=== PATIENT | female | born 1995 | race Caucasian/White ===

== ENCOUNTER 2022-09-20 09:55 | Outpatient (OUT) | payer OTHER, SELFPAY ==
--- NOTE | 2022-09-20 | US_ITS ---
The [address] [address] Patient Name: LINNEA CAPELLAN MRN: [id number] date: 1995 Sex: F Assigned Patient Location: Current Patient Location: US Accession/Order Number: [id number] Exam Date: 09/20/2022 09:57 Report Date: 09/20/2022 15:58 At the request of: SONAM SOTELO Procedure: US OB >= 14 weeks Fetus EXAMINATION: US OB >= 14 weeks Fetus HISTORY: MISSED MENSES COMPARISON: No relevant comparison available. FINDINGS: GESTATIONAL SAC: Present and normal appearing. YOLK SAC: Absent POLE: Present and normal appearing. CARDIAC: Present. UTERUS: Normal size and appearance. OVARIES: Right: Not seen. Left: Normal. CUL-DE-SAC: Normal. OTHER: None. AGE BY LMP: 13 weeks 1 day KIP BY LMP: 03/27/2023 AGE BY US CRL: 15 weeks 1 day KIP BY US CRL: 03/13/2023 US/US OB >= 14 weeks Fetus IMPRESSION: 1. Single live intrauterine 15 weeks 1 day by today's ultrasound (13 weeks 1 day by LMP). 2. Estimated weight is 113 g; greater than 97th percentile. Electronically authenticated by: MONTSE BOWMAN Date: 09/20/2022 15:58
== END 2022-09-20 09:56 | disposition home or self-care (01) ==
LOC: US 09:55
PROVIDERS: Visit Provider Obstetrics & Gynecology
DX: Z34.92 Encounter for supervision of normal pregnancy, unspecified, second trimester (principal)
CPT/HCPCS: 76815; 76817

== ENCOUNTER 2022-10-08 07:41 | Outpatient (OUT) | payer OTHER, SELFPAY ==
[2022-10-08 08:11] LABS: Basophils Percent Auto 0.2 % (0.2-2.0); Eosinophils Absolute Auto 0.1 10^3/uL (0.0-0.7); Eosinophils Percent Auto 1.1 % (0.9-7.0); Hematocrit 35.7 % (36.0-48.0); Hemoglobin 11.9 g/dL (12.0-16.0); Immature Granulocytes Abs Auto 0.03 10^3/uL (0.00-0.03); Immature Granulocytes Pct Auto 0.4 % (0.0-0.5); Lymphocytes Absolute Auto 1.4 10^3/uL (1.2-3.8); Lymphocytes Percent Auto 16.5 % (20.5-60.0); Mean Corpuscular HGB Conc 33.3 g/dL (29.9-35.2); Mean Corpuscular Hemoglobin 30.1 pg (26.7-34.0); Mean Corpuscular Volume 90.2 fL (81.0-99.0); Mean Platelet Volume 9.8 fL (9.5-13.5); Monocytes Absolute Auto 0.5 10^3/uL (0.3-0.8); Monocytes Percent Auto 5.5 % (1.7-12.0); Neutrophils Absolute Auto 6.5 10^3/uL (1.4-6.5); Neutrophils Percent Auto 76.3 % (43.0-75.0); Platelet Count 223 10^3/uL (150-450); Red Blood Count 3.96 10^6/uL (4.20-5.40); Red Cell Distribution Width 13.8 % (11.0-15.0); White Blood Count 8.5 10^3/uL (4.0-11.0)
[2022-10-08 08:30] LABS: Estimated Average Glucose 117 mg/dL; Glycohemoglobin A1C 5.7 % (4.5-6.2)
[2022-10-08 08:44] LABS: Thyroid Stimulating Hormone 0.652 uIU/mL (0.358-3.740)
[2022-10-09 05:07] LABS: HCV Ab Non Reactive (Non Reactive); HIV Ab/p24 Ag Screen Non Reactive (Non Reactive); Rubella Antibodies, IgG 1.68 index (Immune >0.99)
[2022-10-09 06:08] LABS: HBsAg Screen Negative (Negative)
[2022-10-09 11:12] LABS: Rapid Plasma Reagin, Quant Non Reactive (NonRea<1:1)
== END 2022-10-08 07:42 | disposition home or self-care (01) ==
LOC: LAB 07:46
PROVIDERS: Visit Provider Obstetrics & Gynecology
DX: N92.6 Irregular menstruation, unspecified (principal)
CPT/HCPCS: 36415; 83036; 84443; 85025; 86592; 86706; 86762; 86803; 86850; 86900; 86901; 87086; 87389

== ENCOUNTER 2022-10-17 21:12 | Outpatient (REF) | payer OTHER, SELFPAY ==
[2022-10-22 14:09] LABS: Age Gdln ACOG Testing Note (.); IGP, rfx Aptima HPV ASCU Note (.)
== END 2022-10-17 21:13 | disposition home or self-care (01) ==
LOC: LAB 21:12
PROVIDERS: Visit Provider Obstetrics & Gynecology
DX: Z12.4 Encounter for screening for malignant neoplasm of cervix (principal)
CPT/HCPCS: G0145

== ENCOUNTER 2022-10-22 08:37 | Outpatient (OUT) | payer OTHER, SELFPAY ==
[2022-10-22 10:41] LABS: Glucose 1 Hour 112 mg/dL
[2022-10-25 14:09] LABS: AFP Value 66.6 ng/mL (.); Gest. Age on Collection Date 19.7 weeks (.); Gestat. Age Based On Ultrasound (.); Insulin Dep Diabetes No (.); Maternal Age At EDD 29.2 yr (.); OSBR Risk 1 IN 10000 (.); Results Report (.)
== END 2022-10-22 08:38 | disposition home or self-care (01) ==
LOC: LAB 08:39
PROVIDERS: Visit Provider Obstetrics & Gynecology
DX: Z34.92 Encounter for supervision of normal pregnancy, unspecified, second trimester (principal)
CPT/HCPCS: 36415; 82105; 82950

== ENCOUNTER 2022-11-21 08:48 | Outpatient (OUT) | payer OTHER, SELFPAY ==
--- NOTE | 2022-11-21 08:49 | US_ITS ---
[address] [address] Patient Name: LINNEA CAPELLAN MRN: [id number] date: 1995 Sex: F Assigned Patient Location: US Current Patient Location: US Accession/Order Number: [id number] Exam Date: 11/21/2022 08:50 Report Date: 11/21/2022 16:16 At the request of: SONAM SOTELO Procedure: US OB anatomy EXAMINATION: US OB anatomy, US OB cervical length HISTORY: ANATOMY COMPARISON: No relevant comparison available. TECHNIQUE: Transabdominal sonographic examination was performed for obstetrical and evaluation. FINDINGS: Number: 1 Heart Rate: 160.0 bpm H.B. /min Amniotic Fluid Volume: Subjectively normal Placental Location: Posterior with lower margin 6.8 cm from os. Cervix Length: 3.1 cm, closed. ANATOMY: Normal Structures -cerebellum, choroid plexus, cisterna magna, lateral cerebral ventricles, orbits, midline falx, hard palate, four-chamber heart, RVOT, LVOT, stomach, bladder, umbilical cord insertion into abdomen, three-vessel cord, cervical spine, thoracic spine, sacral spine, right upper extremity, left upper extremity, right lower extremity, left lower extremity. SUBOPTIMALLY SEEN: Right kidney and lumbar spine ABNORMALITIES: None BIOMETRY: BPD: 5.4 cm 22 weeks 3 days HC: 21.0 cm 23 weeks 0 days AC: 19.8 cm 24 weeks 3 days FL: 4.3 cm 23 weeks 6 days EFW:652.1 grams; 42% FL/AC: 21.4 FL/BPD: 78.6 HC/AC: 1.1 GESTATIONAL AGE: Age by EDC: 24 weeks 0 days KIP by EDC: 03/13/2023 Age by current US: 23 weeks 3 days KIP by current US: 03/17/2023 US/US OB anatomy IMPRESSION: 1. Single live intrauterine with growth detailed above. 2. Suboptimal visualization of the right kidney and lumbar spine due to position. Follow-up is recommended. Electronically authenticated by: MONTSE BOWMAN Date: 11/21/2022 16:16
--- NOTE | 2022-11-21 08:49 | US_ITS ---
[address] [address] Patient Name: LINNEA CAPELLAN MRN: [id number] date: 1995 Sex: F Assigned Patient Location: US Current Patient Location: Accession/Order Number: [id number] Exam Date: 11/21/2022 08:50 Report Date: 11/21/2022 16:16 At the request of: SONAM SOTELO Procedure: US OB cervical length EXAMINATION: US OB anatomy, US OB cervical length HISTORY: ANATOMY COMPARISON: No relevant comparison available. TECHNIQUE: Transabdominal sonographic examination was performed for obstetrical and evaluation. FINDINGS: Number: 1 Heart Rate: 160.0 bpm H.B. /min Amniotic Fluid Volume: Subjectively normal Placental Location: Posterior with lower margin 6.8 cm from os. Cervix Length: 3.1 cm, closed. ANATOMY: Normal Structures -cerebellum, choroid plexus, cisterna magna, lateral cerebral ventricles, orbits, midline falx, hard palate, four-chamber heart, RVOT, LVOT, stomach, bladder, umbilical cord insertion into abdomen, three-vessel cord, cervical spine, thoracic spine, sacral spine, right upper extremity, left upper extremity, right lower extremity, left lower extremity. SUBOPTIMALLY SEEN: Right kidney and lumbar spine ABNORMALITIES: None BIOMETRY: BPD: 5.4 cm 22 weeks 3 days HC: 21.0 cm 23 weeks 0 days AC: 19.8 cm 24 weeks 3 days FL: 4.3 cm 23 weeks 6 days EFW:652.1 grams; 42% FL/AC: 21.4 FL/BPD: 78.6 HC/AC: 1.1 GESTATIONAL AGE: Age by EDC: 24 weeks 0 days KIP by EDC: 03/13/2023 Age by current US: 23 weeks 3 days KIP by current US: 03/17/2023 US/US OB cervical length IMPRESSION: 1. Single live intrauterine with growth detailed above. 2. Suboptimal visualization of the right kidney and lumbar spine due to position. Follow-up is recommended. Electronically authenticated by: MONTSE BOWMAN Date: 11/21/2022 16:16
== END 2022-11-21 08:49 | disposition home or self-care (01) ==
LOC: US 08:48
PROVIDERS: Visit Provider Obstetrics & Gynecology
DX: Z34.92 Encounter for supervision of normal pregnancy, unspecified, second trimester (principal); Z3A.24 24 weeks gestation of pregnancy
CPT/HCPCS: 76805; 76817

== ENCOUNTER 2022-12-09 08:19 | Outpatient (OUT) | payer OTHER, SELFPAY ==
[2022-12-09 08:40] LABS: Basophils Percent Auto 0.2 % (0.2-2.0); Eosinophils Absolute Auto 0.1 10^3/uL (0.0-0.7); Eosinophils Percent Auto 1.2 % (0.9-7.0); Hematocrit 32.1 % (36.0-48.0); Hemoglobin 10.7 g/dL (12.0-16.0); Immature Granulocytes Abs Auto 0.08 10^3/uL (0.00-0.03); Immature Granulocytes Pct Auto 0.7 % (0.0-0.5); Lymphocytes Absolute Auto 1.3 10^3/uL (1.2-3.8); Lymphocytes Percent Auto 11.1 % (20.5-60.0); Mean Corpuscular HGB Conc 33.3 g/dL (29.9-35.2); Mean Corpuscular Hemoglobin 30.7 pg (26.7-34.0); Mean Corpuscular Volume 92.2 fL (81.0-99.0); Monocytes Absolute Auto 0.6 10^3/uL (0.3-0.8); Monocytes Percent Auto 5.3 % (1.7-12.0); Neutrophils Absolute Auto 9.9 10^3/uL (1.4-6.5); Neutrophils Percent Auto 81.5 % (43.0-75.0); Platelet Count 264 10^3/uL (150-450); Red Blood Count 3.48 10^6/uL (4.20-5.40); Red Cell Distribution Width 13.1 % (11.0-15.0); White Blood Count 12.1 10^3/uL (4.0-11.0)
== END 2022-12-09 08:20 | disposition home or self-care (01) ==
LOC: LAB 08:20
PROVIDERS: Visit Provider Physician Assistant
DX: Z34.92 Encounter for supervision of normal pregnancy, unspecified, second trimester (principal)
CPT/HCPCS: 36415; 85025

== ENCOUNTER 2022-12-24 10:26 | Outpatient (OUT) | payer OTHER, SELFPAY ==
--- NOTE | 2022-12-24 10:29 | US_ITS ---
The [address] [address] Patient Name: LINNEA CAPELLAN MRN: [id number] date: 1995 Sex: F Assigned Patient Location: US Current Patient Location: US Accession/Order Number: [id number] Exam Date: 12/24/2022 10:29 Report Date: 12/24/2022 15:48 At the request of: SONAM SOTELO Procedure: US OB incomplete anatomy EXAM: US OB incomplete anatomy HISTORY: INCOMPLETE ANATOMY COMPARISON: Ultrasound OB anatomy 8 11/21/2022 TECHNIQUE: Transabdominal ultrasound FINDINGS: Presentation: Cephalic Heart rate: 153 bpm Anatomy: Bilateral kidneys and lumbar spine without appreciable abnormality. GA: 28 weeks 5 days KIP: 03/13/2023 US/US OB incomplete anatomy IMPRESSION: 1. Single live intrauterine . 2. Adequate visualization of the kidneys and lumbar spine; no appreciable abnormality. Electronically authenticated by: MONTSE BOWMAN Date: 12/24/2022 15:48
== END 2022-12-24 10:27 | disposition home or self-care (01) ==
LOC: US 10:26
PROVIDERS: Visit Provider Obstetrics & Gynecology
DX: Z36.2 Encounter for other antenatal screening follow-up (principal)
CPT/HCPCS: 76815

== ENCOUNTER 2023-01-14 08:03 | Outpatient (OUT) | payer OTHER, SELFPAY ==
--- NOTE | 2023-01-14 08:04 | US_ITS ---
[address] [address] Patient Name: LINNEA CAPELLAN MRN: [id number] date: 1995 Sex: F Assigned Patient Location: US Current Patient Location: US Accession/Order Number: [id number] Exam Date: 01/14/2023 08:05 Report Date: 01/14/2023 23:50 At the request of: SONAM SOTELO Procedure: US OB growth EXAMINATION: US OB growth HISTORY: SGA COMPARISON: Ultrasound OB anatomy 11/21/2022 FINDINGS: Heart Rate: 166.0 bpm Number: 1.0 Position: CEPHALIC Amniotic Fluid Volume: 11.7 cm Maximum Vertical Pocket: 3.5 cm BIOMETRY: BPD: 7.5 cm cm; 29 weeks 6 days; 4% HC: 28.9 cmcm; 31 weeks 6 days ; 17% AC: 26.9 cm cm; 31 weeks 0 days; 28% FL: 6.1 cm cm; 31 weeks 4 days; 33% EFW: 1716.9 grams; 23% FL/AC: 22.6 FL/BPD: 81.6 HC/AC: 1.1 GESTATIONAL AGE: Age by EDC: 31 weeks 5 days KIP by EDC: 03/13/2023 Age by US: 31 weeks 1 day KIP by US: 03/17/2023 US/US OB growth IMPRESSION: 1. Single live intrauterine with growth detailed above. Electronically authenticated by: MONTSE BOWMAN Date: 01/14/2023 23:50
== END 2023-01-14 08:04 | disposition home or self-care (01) ==
LOC: US 08:03
PROVIDERS: Visit Provider Obstetrics & Gynecology
DX: O26.843 Uterine size-date discrepancy, third trimester (principal); Z3A.31 31 weeks gestation of pregnancy
CPT/HCPCS: 76816

== ENCOUNTER 2023-02-11 09:39 | Outpatient (OUT) | payer OTHER, SELFPAY ==
--- NOTE | 2023-02-11 09:41 | US_ITS ---
[address] [address] Patient Name: LINNEA CAPELALN MRN: [id number] date: 1995 Sex: F Assigned Patient Location: US Current Patient Location: US Accession/Order Number: [id number] Exam Date: 02/11/2023 09:42 Report Date: 02/11/2023 10:25 At the request of: SONAM SOTELO Procedure: US OB growth EXAMINATION: US OB growth HISTORY: SIZE INCONSISTENT WITH DATE COMPARISON: No relevant comparison available. FINDINGS: Heart Rate: 164.0 bpm Amniotic Fluid Volume: 11.1 cm Number: 1.0 Position: Cephalic presentation, longitudinal lie Maximum Vertical Pocket: 5.3 cm cm 2.1 cm cm 2.6 cm cm 1.1 cm cm BIOMETRY: BPD: 8.5 cm cm; 34 weeks 1 days; 16% HC: 30.9 cmcm; 34 weeks 3 days , 4% AC: 30.2 cm cm; 34 weeks 1 days, 18% FL: 6.8 cm cm; 34 weeks 5 days; 20.9 % % EFW: 2415.7 grams FL/AC: 22.4 FL/BPD: 79.6 HC/AC: 1.0 GESTATIONAL AGE: Age by EDC: 35 weeks 5 days KIP by EDC: 03/13/2023 Age by US: 34 weeks 3 days KIP by US: 03/22/2023 Suboptimal visualization of the head due to the low position US/US OB growth IMPRESSION: Normal interval growth Electronically authenticated by: TRESSA HERZOG Date: 02/11/2023 10:25
--- OUTSIDE RECORDS SUMMARY | 2023-02-11 09:46 | XMS_ITS | CCD ---
Author Name Unknown Address [id number] [place] [address] Organization [facility] Care Team Providers Care Machine Shop Supervisor Name Role Phone CHAVEZ BACA Unavailable Unavailable CHAVEZ BACA Unavailable Unavailable CHAVEZ BACA Unavailable Unavailable CHAVEZ BACA Unavailable Unavailable CHAVEZ BACA Unavailable Unavailable TRESSA HERZOG V Unavailable Unavailable CHAVEZ BACA Unavailable Unavailable CHAVEZ BACA Unavailable Unavailable CHAVEZ BACA Unavailable Unavailable CHAVEZ BACA Unavailable Unavailable CHAVEZ BACA Unavailable Unavailable CHAVEZ BACA Unavailable Unavailable CHAVEZ BACA Unavailable Unavailable CHAVEZ BACA Unavailable Unavailable CHAVEZ BACA Unavailable Unavailable MAXWELL BARBOSA Unavailable Unavailable CHAVEZ BACA Unavailable Unavailable CHAVEZ BACA Unavailable Unavailable CHAVEZ BACA Unavailable Unavailable CHAVEZ BACA Unavailable Unavailable CHAVEZ BACA Unavailable Unavailable CHAVEZ BACA Unavailable Unavailable TRESSA HERZOG V Unavailable Unavailable CANDY BACAA Unavailable Unavailable CHAVEZ BACA Unavailable Unavailable CHAVEZ BAAC Unavailable Unavailable MISC, DOCTOR Unavailable Unavailable CHAVEZ BACA Unavailable Unavailable CANDY BACAA Unavailable Unavailable CANDY BACAA Unavailable Unavailable CANDY BACAA Unavailable Unavailable CANDY BACAA Unavailable Unavailable CANDY BACAA Unavailable Unavailable CANDY BACAA Unavailable Unavailable CHAVEZ BACA Unavailable Unavailable CHAVEZ BACA Unavailable Unavailable DEEPAK, SONAM Unavailable Unavailable DEEPAK, SONAM Unavailable Unavailable CARRIE HAWKINS Unavailable Unavailable MISC, DOCTOR Unavailable Unavailable DEEPAK, SONAM Unavailable Unavailable CHAVEZ BACA Unavailable Unavailable DEEPAK, SONAM Unavailable Unavailable Oly Marie Unavailable ISAIAS LUX Attending Unavailable DEEPAK, SONAM Attending Unavailable Problems Active Problems Problem Classification Problem Date Documented Da te Episodic/Chronic Normal and/or delivery (14 sources) Encounter for supervision of normal , unspecified, third trimester; Translations: [Encounter for routine follow-up] Onset: 03-14-2017 Episodic OB-related trauma to perineum and vulva (1 source) Second degree perineal laceration during delivery; Translations: [SECOND DEG PERINEAL LAC DUR DELIV] Onset: 08-05-2017 Episodic Other complications of ; puerperium affecting management of mother (1 source) Smoking (tobacco) complicating childbirth; Translations: [SMOKING TOBACCO COMP CHILDBIRTH] Onset: 08-05-2017 Episodic Other complications of (4 sources) Anemia complicating , third trimester; Translations: [ANEMIA COMP THIRD TRI] Onset: 06-27-2017 Chronic Other complications of (2 sources) Smoking (tobacco) complicating , third trimester; Translations: [SMOKING TOBACCO COMP PREG 3RD TRI] Onset: 07-22-2017 Episodic Other lower respiratory disease (1 source) Cough; Translations: [Cough, unspecified type] Episodic Substance-related disorders (1 source) Nicotine dependence, cigarettes, uncomplicated; Translations: [NICOTINE DEPEND CIGARETTES UNCOMP] Onset: 08-05-2017 Chronic Unclassified (2 sources) 35 weeks gestation of ; Translations: [39 weeks gestation of ] Onset: 06-26-2017 Past or Other Problems Problem Classification Problem Date Documented Da te Episodic/Chronic Unclassified (4 sources) Encounter for screening for malignant neoplasm of cervix; Translations: [ENC SCREENING MALIG NEOPLASM CERV] Onset: 03-10-2017 Episodic Unclassified (1 source) Cough, unspecified type R05.9 Onset: 09-15-2021 Resolved: 09-15-2021 Results Test Name Value Interpretation Reference Range Facility COVID Quick Testingon 2021 Result Positive invino Other CBC AUTO DIFFon 07-23-2017 Basophils Auto #/vol (Bld) 0.0 103/ul Normal 0.0-0.1 [facility] Comment on above: Performed By: #### U AMIC ####[facility] [address] [place], [place] [address]Zgowth Jovanna Basophils/100 WBC Auto (Bld) 0.2 % Normal 0.2-2.0 [facility] Comment on above: Performed By: #### U AMIC ####[facility] [address] [place], [place] [address]Ntwrlq Jovanna Eosinophils 0.0 103/ul Normal 0.0-0.7 [facility] Comment on above: Performed By: #### U AMIC ####[facility] [address] [place], [place] [address]Gerdeangelo Nugent Eosinophils/100 leukocytes 0.2 % Critically low 0.9-7.0 [facility] Comment on above: Performed By: #### U AMIC ####[facility] Bsqz[address] [place], [place] [address]Gerken Jovanna Erythrocyte distribution width Auto Ratio (RBC) 14.3 % Normal 11.0-15.0 [facility] Comment on above: Performed By: #### U AMIC ####[facility] [address] [place] [address] Jovanna Erythrocytes (RBC) 3.30 106/ul Critically low 4.20-5.40 [facility] Comment on above: Performed By: #### U AMIC ####[facility] Lkmmtaqcxb[address] [place], [place] [address]Gerken Jovanna Hematocrit (HCT) 28.5 % Critically low 36.0-48.0 [facility] Comment on above: Performed By: #### U AMIC ####[facility] Zdvgahmz[address] [place], [place] [address]Gerken Jovanna Hemoglobin mass conc (Bld) 9.5 g/dL Critically low 12.0-16.0 [facility] Comment on above: Performed By: #### U AMIC ####[facility] [address] [place], [place] [address]Gerken Jovanna IG # 0.07 10e3/ul Critically high 0.00-0.[address] [facility] Comment on above: Performed By: #### U AMIC ####[facility] [address] [place], [place] [address]Gerken Jovanna IG % 0.5 % Normal 0.0-0.5 [facility] Comment on above: Performed By: #### U AMIC ####[facility] [address] [place], [place] [address]Gerken Jovanna Lymphocytes 1.1 103/ul Critically low 1.2-3.8 [facility] Comment on above: Performed By: #### U AMIC ####[facility] Y[address]qvx[address]fds14[address] [place] [phone] Jovanna Lymphocytes/100 leukocytes 7.3 % Critically low 20.5-60.0 [facility] Comment on above: Performed By: #### U AMIC ####[facility] Olucdmplce[address] [place] [phone] Jovanna MANUAL DIFF REQ NO Normal [facility] Comment on above: Performed By: #### U AMIC ####[facility] [address]abbsucetp2534 [place] [phone] Jovanna MCH 28.8 pg Normal 26.7-34.0 [facility] Comment on above: Performed By: #### U AMIC ####[facility] Mxwleaqmko6864 [place] [phone] Jovanna MCHC mass conc (RBC) 33.3 g/dL Normal 29.9-35.2 [facility] Comment on above: Performed By: #### U AMIC ####[facility] Juszoesicm1105 [place] [phone] Jovanna MCV 86.4 fL Normal 81.0-99.0 [facility] Comment on above: Performed By: #### U AMIC ####[facility] [address]ijxafv[address]994 [place] [address]Gerken Jovanna Monocytes 0.7 103/ul Normal 0.3-0.8 [facility] Comment on above: Performed By: #### U AMIC ####[facility] [address]re[address]sh[address] [place] [phone] Jovanna Monocytes/100 leukocytes 4.7 % Normal 1.7-12.0 [facility] Comment on above: Performed By: #### U AMIC ####[facility] Nhsvhzmnot9489 [place] [phone] Jovanna Neutrophils 12.8 103/ul Critically high 1.4-6.5 [facility] Comment on above: Performed By: #### U AMIC ####[facility] Vucinhhdhm5008 [place], [place] [address]Szjzhd Jovanna Neutrophils/100 WBC Auto (Bld) 87.1 % Critically high 43.0-75.0 [facility] Comment on above: Performed By: #### U AMIC ####[facility] Dlxngtlojc0345 [place], [place] [address]Dqhnem Jovanna Platelet mean volume (PMV) 10.0 fL Normal 9.5-13.5 [facility] Comment on above: Performed By: #### U AMIC ####[facility] [address] [place] [address]Dovfry Jovanna Platelets 171 103/ul Normal 150-450 [facility] Comment on above: Performed By: #### U AMIC ####[facility] [address] [place] [address]Reaxfh Jovanna WBC (Leukocytes) 14.7 103/ul Critically high 4.0-11.0 [facility] Comment on above: Performed By: #### U AMIC ####[facility] [address] [place] [address]Ahrcvh Jovanna CBC AUTO DIFFon 07-22-2017 Basophils Auto #/vol (Bld) 0.0 103/ul Normal 0.0-0.1 [facility] Comment on above: Performed By: #### U AMIC ####[facility] [address] [place] [address]Olgpaq Jovanna Basophils/100 WBC Auto (Bld) 0.2 % Normal 0.2-2.0 [facility] Comment on above: Performed By: #### U AMIC ####[facility] [address] [place] [address]Oocvvl Jovanna Eosinophils 0.1 103/ul Normal 0.0-0.7 [facility] Comment on above: Performed By: #### U AMIC ####[facility] [address] [place] [address]Ohxfju Jovanna Eosinophils/100 leukocytes 0.4 % Critically low 0.9-7.0 [facility] Comment on above: Performed By: #### U AMIC ####[facility] Wpytazvlga4356 [place] [phone] Nugent Erythrocyte distribution width Auto Ratio (RBC) 14.5 % Normal 11.0-15.0 [facility] Comment on above: Performed By: #### U AMIC ####[facility] Ubqwkhpbqz3466 [place] [phone] Jovanna Erythrocytes (RBC) 3.83 106/ul Critically low 4.20-5.40 [facility] Comment on above: Performed By: #### U AMIC ####[facility] Btlkaoreze2748 [place] [phone] Jovanna Hematocrit (HCT) 33.0 % Critically low 36.0-48.0 [facility] Comment on above: Performed By: #### U AMIC ####[facility] Wpznnljsmz9871 [place] [phone] Jovanna Hemoglobin mass conc (Bld) 11.0 g/dL Critically low 12.0-16.0 [facility] Comment on above: Performed By: #### U AMIC ####[facility] Xzfuggbout3765 [place], [place] [address]Ttjkxe Jovanna IG # 0.06 10e3/ul Critically high 0.00-0.[address] [facility] Comment on above: Performed By: #### U AMIC ####[facility] Snxbtubhdm6686 [place] [phone] Jovanna IG % 0.4 % Normal 0.0-0.5 [facility] Comment on above: Performed By: #### U AMIC ####[facility] Ojlyibtgvh5610 [place] [phone] Jovanna Lymphocytes 1.1 103/ul Critically low 1.2-3.8 [facility] Comment on above: Performed By: #### U AMIC ####[facility] Trleylhrsj3168 [place] [phone] Jovanna Lymphocytes/100 leukocytes 7.0 % Critically low 20.5-60.0 [facility] Comment on above: Performed By: #### U AMIC ####[facility] Ewwbrfyrlu7054 [place] [phone] Jovanna MANUAL DIFF REQ NO Normal [facility] Comment on above: Performed By: #### U AMIC ####[facility] Uengxvhmzi2261 [place] [phone] Jovanna MCH 28.7 pg Normal 26.7-34.0 [facility] Comment on above: Performed By: #### U AMIC ####[facility] Elpttinlqw6771 [place] [phone] Jovanna MCHC mass conc (RBC) 33.3 g/dL Normal 29.9-35.2 [facility] Comment on above: Performed By: #### U AMIC ####[facility] [address] [place], [place] [address]Gerken Jovanna MCV 86.2 fL Normal 81.0-99.0 [facility] Comment on above: Performed By: #### U AMIC ####[facility] Bcdjkgmfws6877 [place] [address]Gerken Jovanna Monocytes 0.8 103/ul Normal 0.3-0.8 [facility] Comment on above: Performed By: #### U AMIC ####[facility] Cxpqursqck7939 [address] Jovanna Monocytes/100 leukocytes 4.9 % Normal 1.7-12.0 [facility] Comment on above: Performed By: #### U AMIC ####[facility] Xykuscdzil0264 [place] [phone] Jovanna Neutrophils 14.0 103/ul Critically high 1.4-6.5 [facility] Comment on above: Performed By: #### U AMIC ####[facility] Qjesteuxwl8723 [place] [phone] Jovanna Neutrophils/100 WBC Auto (Bld) 87.1 % Critically high 43.0-75.0 [facility] Comment on above: Performed By: #### U AMIC ####[facility] Lbrtoljnpy3903 [address] Jovanna Platelet mean volume (PMV) 11.5 fL Normal 9.5-13.5 [facility] Comment on above: Performed By: #### U AMIC ####[facility] Gqbhigcnsb[address] Jovanna Platelets 204 103/ul Normal 150-450 [facility] Comment on above: Performed By: #### U AMIC ####[facility] Awzflcgyvm[address]19 [address] Jovanna WBC (Leukocytes) 16.0 103/ul Critically high 4.0-11.0 [facility] Comment on above: Performed By: #### U AMIC ####[facility] [address] [place] [address] DRUG SCREEN RAPID (URINE)on 07-22-2017 AMP Negative Normal NEGATIVE [facility] Comment on above: Performed By: #### U AMIC ####[facility] Lvaouyvltw[address] Jovanna BAR Negative Normal NEGATIVE [facility] Comment on above: Performed By: #### U AMIC ####[facility] [address]bnf[address] [place] [address] Jovanna BUP Negative Normal NEGATIVE [facility] Comment on above: Performed By: #### U AMIC ####[facility] Zagkvstiqc[address] [place] [address] Jovanna BZO Negative Normal NEGATIVE [facility] Comment on above: Performed By: #### U AMIC ####[facility] [address]gbzyef[address] [place] [address] Jovanna KENNETH Negative Normal NEGATIVE [facility] Comment on above: Performed By: #### U AMIC ####[facility] Awits[address]von[address] [place] [address] CUT-OFFS SEE BELOW Normal [facility] Comment on above: Result Comment: AMP (Amphetamine): 500ng/mL, BAR (Barbituates): 200 ng/mL, BZO (Benzodiazepines): 150 ng/mL, BUP (Buprenorphine): 10 ng/mL, KENNETH (Cocaine): 150 ng/mL, mAMP (Methamphetamine): 500 ng/mL, MTD (Methadone): 200 ng/mL, OPI (Opiates): 100 ng/mL or 2000 ng/mL, OXY (Oxycodone): 100 ng/mL, PCP (Phencyclidine): 25 ng/mL, PPX (Propoxyphene): 300 ng/mL, THC (Cannabinoids): 50 ng/mL, TCA (Trycyclic Antidepressants): 300 ng/mL Performed By: #### U AMIC ####[facility] [address] [place] [address] DRUG CUT HEADER DRUG CLASS TEST SYSTEM CUT-OFF CONCENTRATIONS ARE FOLLOWS: Normal [facility] Comment on above: Performed By: #### U AMIC ####[facility] Ojbr[address]jl[address] [place] [address] mAMP Negative Normal NEGATIVE [facility] Comment on above: Performed By: #### U AMIC ####[facility] [address] [place] [address] MTD Negative Normal NEGATIVE [facility] Comment on above: Performed By: #### U AMIC ####[facility] Oufas[address]sk[address] [place] [address] OPI Negative Normal NEGATIVE [facility] Comment on above: Performed By: #### U AMIC ####[facility] [address]ax[address] [place] [address] OXY Negative Normal NEGATIVE [facility] Comment on above: Performed By: #### U AMIC ####[facility] [address]ymmeis[address] [place] [address] PCP Negative Normal NEGATIVE [facility] Comment on above: Performed By: #### U AMIC ####[facility] X[address]knpvwe[address] [place] [address] PPX Negative Normal NEGATIVE [facility] Comment on above: Performed By: #### U AMIC ####[facility] Ls[address]ankw[address] [place] [address] TCA Negative Normal NEGATIVE [facility] Comment on above: Performed By: #### U AMIC ####[facility] Fjfvphxswa5232 [place] [phone] Jovanna THC Negative Normal NEGATIVE [facility] Comment on above: Performed By: #### U AMIC ####[facility] Up[address]mfrlho23[address] [place], [place] [address]Sllrwa Jovanna CHLAMYDIA/GONOCOCCUS LOR W/C ONF. (SWAB/Uon 06-28-2017 Chlamydia Trach LOR Negative Normal Negative [facility] Comment on above: Performed By: #### U AMIC ####[facility] Fqzowqafbs8857 [place] [phone] Jovanna N. Gonorrhoeae LOR Negative Normal Negative [facility] Comment on above: Performed By: #### U AMIC ####[facility] R[address]wghfy[address] [place], [place] [address]Gerken Jovanna CBC AUTO DIFFon 06-27-2017 Basophils Auto #/vol (Bld) 0.0 103/ul Normal 0.0-0.1 [facility] Comment on above: Performed By: #### U AMIC ####[facility] Dxigvtykgl[address] [place], [place] [address]Gerken Jovanna Basophils/100 WBC Auto (Bld) 0.2 % Normal 0.2-2.0 [facility] Comment on above: Performed By: #### U AMIC ####[facility] [address] [place], [place] [id number] Jovanna Eosinophils 0.1 103/ul Normal 0.0-0.7 [facility] Comment on above: Performed By: #### U AMIC ####[facility] [address]cq[address] [place], [place] [address]Gerken Jovanna Eosinophils/100 leukocytes 1.2 % Normal 0.9-7.0 [facility] Comment on above: Performed By: #### U AMIC ####[facility] [address]hr[address]wrn[address] [place], [place] [address]Gerken Jovanna Erythrocyte distribution width Auto Ratio (RBC) 12.9 % Normal 11.0-15.0 [facility] Comment on above: Performed By: #### U AMIC ####[facility] Srbxcywonn7657 [address] Jovanna Erythrocytes (RBC) 3.47 106/ul Critically low 4.20-5.40 [facility] Comment on above: Performed By: #### U AMIC ####[facility] Nohnjlxsog9466 [place] [phone] Jovanna Hematocrit (HCT) 30.6 % Critically low 36.0-48.0 [facility] Comment on above: Performed By: #### U AMIC ####[facility] Rzsdlvdvrb5021 [address] Jovanna Hemoglobin mass conc (Bld) 10.1 g/dL Critically low 12.0-16.0 [facility] Comment on above: Performed By: #### U AMIC ####[facility] U[address] [place] [address] Jovanna IG # 0.03 10e3/ul Normal 0.00-0.03 [facility] Comment on above: Performed By: #### U AMIC ####[facility] Seedcytwyr9318 [address] Jovanna IG % 0.3 % Normal 0.0-0.5 [facility] Comment on above: Performed By: #### U AMIC ####[facility] Vjjpuxpfhm[address]23 [address] Jovanna Lymphocytes 1.6 103/ul Normal 1.2-3.8 [facility] Comment on above: Performed By: #### U AMIC ####[facility] Ygcgkhwmcx7878 [address] Jovanna Lymphocytes/100 leukocytes 17.3 % Critically low 20.5-60.0 [facility] Comment on above: Performed By: #### U AMIC ####[facility] Krxbjnvusz5576 [address] Jovanna MANUAL DIFF REQ NO Normal [facility] Comment on above: Performed By: #### U AMIC ####[facility] L[address]abjkmz[address] [place] [phone] Jovanna MCH 29.1 pg Normal 26.7-34.0 [facility] Comment on above: Performed By: #### U AMIC ####[facility] Dtapfhnvyn4829 [place] [phone] Nugent MCHC mass conc (RBC) 33.0 g/dL Normal 29.9-35.2 [facility] Comment on above: Performed By: #### U AMIC ####[facility] Ndricxedej6532 [place] [phone] Jovanna MCV 88.2 fL Normal 81.0-99.0 [facility] Comment on above: Performed By: #### U AMIC ####[facility] Zaxkslcgvc2430 [place] [phone] Jovanna Monocytes 0.7 103/ul Normal 0.3-0.8 [facility] Comment on above: Performed By: #### U AMIC ####[facility] Tjuiziqyje6861 [place] [phone] Jovanna Monocytes/100 leukocytes 7.7 % Normal 1.7-12.0 [facility] Comment on above: Performed By: #### U AMIC ####[facility] [facility] [address] [place] [id number] Jovanna Neutrophils 6.6 103/ul Critically high 1.4-6.5 [facility] Comment on above: Performed By: #### U AMIC ####[facility] [address]wn[address] [place] [id number] Jovanna Neutrophils/100 WBC Auto (Bld) 73.3 % Normal 43.0-75.0 [facility] Comment on above: Performed By: #### U AMIC ####[facility] Xyptswab[address] [place], [place] [address]Gerken Jovanna Platelet mean volume (PMV) 10.4 fL Normal 9.5-13.5 [facility] Comment on above: Performed By: #### U AMIC ####[facility] Unignsiqrz[address] [place], [place] [address]Gerken Jovanna Platelets 235 103/ul Normal 150-450 [facility] Comment on above: Performed By: #### U AMIC ####[facility] Vorqqmeeas[address] [place], [place] [address]Gerken Jovanna WBC (Leukocytes) 9.1 103/ul Normal 4.0-11.0 [facility] Comment on above: Performed By: #### U AMIC ####[facility] [address] [place] [address] Jovanna GROUP B STREPTon 06-25-2017 GBS Performed by [facility] , final report to follow Normal NEG FOR GBS [facility] Comment on above: Performed By: #### U AMIC ####[facility] [address] [place], [place] [phone] Jovanna CBC AUTO DIFFon 05-16-2017 Basophils Auto #/vol (Bld) 0.0 103/ul Normal 0.0-0.1 [facility] Comment on above: Performed By: #### P REGQNT ####[facility] [address] [place] [address] Jovanna Basophils/100 WBC Auto (Bld) 0.2 % Normal 0.2-2.0 [facility] Comment on above: Performed By: #### P REGQNT ####[facility] [address] [place] [address] Jovanna Eosinophils 0.1 103/ul Normal 0.0-0.7 [facility] Comment on above: Performed By: #### P REGQNT ####[facility] [address]ju[address] [place] [address] Jovanna Eosinophils/100 leukocytes 0.7 % Critically low 0.9-7.0 [facility] Comment on above: Performed By: #### P REGQNT ####[facility] [address] [place] [address] Jovanna Erythrocyte distribution width Auto Ratio (RBC) 12.6 % Normal 11.0-15.0 [facility] Comment on above: Performed By: #### P REGQNT ####[facility] Tigiajrhgb6027 [address] Jovanna Erythrocytes (RBC) 3.42 106/ul Critically low 4.20-5.40 [facility] Comment on above: Performed By: #### P REGQNT ####[facility] S[address] [place], [place] [address]Gerken Jovanna Hematocrit (HCT) 30.4 % Critically low 36.0-48.0 [facility] Comment on above: Performed By: #### P REGQNT ####[facility] Ty[address]jlaz[address] [place] [address] Jovanna Hemoglobin mass conc (Bld) 10.3 g/dL Critically low 12.0-16.0 [facility] Comment on above: Performed By: #### P REGQNT ####[facility] Ab[address] [place] [address] Jovanna IG # 0.08 10e3/ul Critically high 0.00-0.[address] [facility] Comment on above: Performed By: #### P REGQNT ####[facility] [address]wok[address]ze[address] [place] [address] Jovanna IG % 0.6 % Critically high 0.0-0.5 [facility] Comment on above: Performed By: #### P REGQNT ####[facility] Gdz[address]hnfs[address] [place] [address] Jovanna Lymphocytes 1.2 103/ul Normal 1.2-3.8 [facility] Comment on above: Performed By: #### P REGQNT ####[facility] [address]euycrzbdz[address] [place] [address] Jovanna Lymphocytes/100 leukocytes 9.3 % Critically low 20.5-60.0 [facility] Comment on above: Performed By: #### P REGQNT ####[facility] Y[address]vl[address] [place] [address] Jovanna MANUAL DIFF REQ NO Normal [facility] Comment on above: Performed By: #### P REGQNT ####[facility] [address] [place] [phone] Nugent MCH 30.1 pg Normal 26.7-34.0 [facility] Comment on above: Performed By: #### P REGQNT ####[facility] [address]wru[address] [place] [phone] Nugent MCHC mass conc (RBC) 33.9 g/dL Normal 29.9-35.2 [facility] Comment on above: Performed By: #### P REGQNT ####[facility] [address] [place] [id number] Nugent MCV 88.9 fL Normal 81.0-99.0 [facility] Comment on above: Performed By: #### P REGQNT ####[facility] Djbseux[address] [place], [place] [address]Gerken Jovanna Monocytes 0.7 103/ul Normal 0.3-0.8 [facility] Comment on above: Performed By: #### P REGQNT ####[facility] Rdakifdhlv[address] [place], [place] [address]Gerken Jovanna Monocytes/100 leukocytes 5.3 % Normal 1.7-12.0 [facility] Comment on above: Performed By: #### P REGQNT ####[facility] [address] [place], [place] [address]Gerken Jovanna Neutrophils 10.5 103/ul Critically high 1.4-6.5 [facility] Comment on above: Performed By: #### P REGQNT ####[facility] [address] [place] [phone] Jovanna Neutrophils/100 WBC Auto (Bld) 83.9 % Critically high 43.0-75.0 [facility] Comment on above: Performed By: #### P REGQNT ####[facility] [address] [place] [id number] Nugent Platelet mean volume (PMV) 9.0 fL Critically low 9.5-13.5 [facility] Comment on above: Performed By: #### P REGQNT ####[facility] [address] [place], [place] [address]Udpodn Karen Platelets 233 103/ul Normal 150-450 [facility] Comment on above: Performed By: #### P REGQNT ####[facility] [address] [place], [place] [address]Xgswsg Karen WBC (Leukocytes) 12.6 103/ul Critically high 4.0-11.0 [facility] Comment on above: Performed By: #### P REGQNT ####[facility] [address] [place], [place] [address]Cnmjzv Jovanna GLUCOSE - 1HRon 05-16-2017 Glucose mass conc 112 mg/dL Critically high 74-106 [facility] Comment on above: Performed By: #### P REGQNT ####[facility] [address] [place], [place] [address]OgckdjAlberto Nugent US PREG INCOMPLETE ANATOMYon 04-25-2017 US PREG INCOMPLETE ANATOMY [address] [place] [address] Patient: LINNEA CAPELLAN Exam Date: 04/25/2017DOB: 1995 Gender:F : CHAVEZ BACA . Admission #: [id number] : Order #: [id number] HERE TO VIEW EXAM RADIOLOGY REPORT PROCEDURE: ULTRASOUND INCOMPLETE ANATOMY COMPARISON: US PREG ANATOMY SINGLE, 03/10/2017. INDICATIONS: Routine care Z34.02; head structures subvisualized on prior exam; 27w0d TECHNIQUE: Transabdominal sonographic examination for obstetrical and evaluation, incomplete anatomy.QUALITY: Adequate. FINDINGS: NUMBER: Single. POSITION: Breech. MEASUREMENTS BIPARIETAL DIAMETER: 6.5 cm., corresponding with 26 weeks, 2 days.HEAD CIRCUMFERENCE: 24.5 cm., corresponding with 26 weeks, 4 days. HEART RATE: 134 bpmOBSERVED ANATOMY: Falx, lateral ventricles, choroids, cisterna magna, and cerebellum unremarkable. AGE BY EDC: 27 weeks, 0 daysEDD BY EDC: July 25, 2017 CONCLUSION: 1. Normal head structures Dictated by: Tressa Herzog M.D. on 04/25/2017 at 11:41 Approved by: Tressa Herzog M.D. on 04/25/2017 at 11:42 Normal [facility] US PREG ANATOMY SINGLEon US PREG ANATOMY SINGLE [address] [place] [address] Patient: LINNEA CAPELLAN Exam Date: 03/10/2017DOB: 1995 Gender:F : CHAVEZ BACA . Admission #: [id number] : Order #: [id number] HERE TO VIEW EXAM RADIOLOGY REPORT PROCEDURE: ULTRASOUND > 14 WEEKS COMPARISON: None. INDICATIONS: Positive test Z32.01; routine care; 20w3d TECHNIQUE: Transabdominal sonographic examination for obstetrical and evaluation. Transvaginal sonographic examination for obstetrical and evaluation.FINDINGS: FLUID / PLACENTA: Amniotic fluid volume: Subjectively normal for gestational age. Placental location: Posterior. No previa. Cervix Length: 3.0 cm, closed Heart Rate: 140 H.B./min Number: One ANATOMY: Normal structures: Orbits. Midline falx. Hard palate. 4-chamber heart. RVOT. LVOT. Stomach. Kidneys. Bladder. Umbilical cord insertion into abdomen. 3 vessel cord. Cervical spine. Thoracic spine. Lumbar spine. Sacral spine. Right upper extremity. Left upper extremity. Right lower extremity. Left lower extremity. Suboptimally seen: Cerebellum. Choroid plexus. Cisterna magna. Lateral cerebral ventricles. Abnormalities/Other: None. BIOMETRY: BPD: 4.92 cm 20 weeks, 6 days FL/AC: 0.20 1 HC: 17.50 cm 20 weeks, 0 days FL/BPD: 0.70 1 AC: 17.30 cm 22 weeks, 1 day HC/AC: 1.01 1 FL: 3.44 cm 20 weeks, 5 days EFW: 423 g 68% by AUA; 92% by EDC GESTATIONAL AGE: Age by EDC: 20 weeks, 3 days KIP by EDC: 2017-07-25 Age by current US: 21 weeks, 0 days KIP by current US: 2017-07-21 *Reference: [employer] Practice Guideline for the performance of Obstetric Ultrasound Examinations, November 10, 2006. CONCLUSION: 1. Single live intrauterine with growth detailed above.2. head structures were not well seen due to position.3. Cervix is 3.0 cm in length and closed. Dictated by: Maxwell Barbosa M.D. on 03/10/2017 at 12:13 Approved by: Maxwell Barbosa M.D. on 03/10/2017 at 12:18 Normal [facility] PAP ACOG PANEL 4: 21 to 29on 03-03-2017 Age Gdln ACOG Testing 21- Normal [facility] Comment on above: Performed By: #### P REGQNT ####[facility] F[address]ce[address] Chlamydia, Nuc. Acid Amp Negative Normal Negative [facility] Comment on above: Result Comment: Perf ormed at: =G Performed By: #### P REGQNT ####[facility] [address] [place], [place] [address] DIAGNOSIS: Comment Normal [facility] Comment on above: Result Comment: NEGA TIVE FOR INTRAEPITHELIAL LESION AND MALIGNANCY.Performed at: WB Performed By: #### P REGQNT ####[facility] [address] [place] [address] Gonococcus, Nuc. Acid Amp Negative Normal Negative [facility] Comment on above: Result Comment: Perf ormed at: =G Performed By: #### P REGQNT ####[facility] [address] [place] [address] Methodology: Comment Normal [facility] Comment on above: Result Comment: This liquid based ThinPrep(R) pap test was screened with theuse of an image guided system.Performed at: WB Performed By: #### P REGQNT ####[facility] [address] [place] [address] Note: Comment Normal [facility] Comment on above: Result Comment: The Pap smear is a screening test designed to aid in the detection ofpremalignant and malignant conditions of the uterine cervix. It is not adiagnostic procedure and should not be used as the sole means of detectingcervical cancer. Both false-positive and false-negative reports do occur. .Performed at: WB Performed By: #### P REGQNT ####[facility] [address] [place] [address] Performed by: Comment Normal [facility] Comment on above: Result Comment: Florentin Collins, Supervisor Public Health Nursing (ASCP)Performed at: WB Performed By: #### P REGQNT ####[facility] [address] [place] [address] Reflex Criteria: Comment Normal [facility] Comment on above: Result Comment: The HPV DNA reflex criteria were not met with this specimen resulttherefore, no HPV testing was performed. .Performed at: WB Performed By: #### P REGQNT ####[facility] [address] [place] [address] Specimen adequacy: Comment Normal [facility] Comment on above: Result Comment: Sati sfactory for evaluation. Endocervical and/or squamous metaplasticcells (endocervical component) are present.Performed at: WB Performed By: #### P REGQNT ####[facility] [address] [place] [address] Trich vag by LOR Negative Normal Negative [facility] Comment on above: Result Comment: Perf ormed at: =G Performed By: #### P REGQNT ####[facility] [address] [place] [address] . . Normal [facility] Comment on above: Result Comment: Perf ormed at: WB Performed By: #### P REGQNT ####[facility] [address] [place] [address] HEP B SURFACE AGon 8 BSA (Body Surface Area) Negative Normal Negative [facility] Comment on above: Performed By: #### H EPBSUR ####[facility] Oz[address] [place] [address] HEPATITIIS C VIRUS ANTIBODYo n 02-27-2017 Hep C Virus Ab <0.1 Normal 0.0-0.9 [facility] Comment on above: Result Comment: Nega tive: < 0.8 Indeterminate: 0.8 - 0.9 Positive: > 0.9 . The CDC recommends that a positive HCV antibody result be followed up with a HCV Nucleic Acid Amplification test (299076). Performed By: #### H CV ####[facility] [address] [place] [address] Jovanna HGB(ELECTP) FRACTION PROFILE on 02-27-2017 Hemoglobin mass conc (Bld) 3.0 % Normal 1.8-3.2 [facility] Comment on above: Result Comment: Pl ease note reference interval change Performed By: #### P REGQNT ####[facility] [address] [place] [address] Jovanna Hemoglobin mass conc (Bld) 0.0 % Normal 0.0 [facility] Comment on above: Performed By: #### P REGQNT ####[facility] [address]fxjt[address]ovu[address] [place] [address] Jovanna Hemoglobin mass conc (Bld) Negative Normal Negative [facility] Comment on above: Performed By: #### P REGQNT ####[facility] [address]utq[address] [place] [address] Jovanna Hemoglobin mass conc (Bld) 0.5 % Normal 0.0-2.0 [facility] Comment on above: Result Comment: Pl ease note reference interval change Performed By: #### P REGQNT ####[facility] [address]igr[address] [place] [address] Jovanna Hemoglobin mass conc (Bld) 96.5 % Normal 96.4-98.8 [facility] Comment on above: Result Comment: Pl ease note reference interval change Performed By: #### P REGQNT ####[facility] Iqtxauserm[address] [place] [address] Jovanna Hemoglobin mass conc (Bld) Normal [facility] Comment on above: Performed By: #### P REGQNT ####[facility] [address] [place] [address] Jovanna Interpretation Comment Normal [facility] Comment on above: Result Comment: Norm al adult hemoglobin present. Performed By: #### P REGQNT ####[facility] [address] [place] [address]Alberto Nugent RPR QUANTon 02-27-2017 Rapid Plasma Reagin, Quant Non Reactive Normal NonRea<1:1 [facility] Comment on above: Performed By: #### P REGQNT ####[facility] [address] [place] [address] Jovanna VARICELLA IGG ABon 8 Varicella Zoster IgG <135 Critically low Immune >165 [facility] Comment on above: Result Comment: Nega tive <135 Equivocal 135 - 165 Positive >165 A positive result generally indicates exposure to the pathogen or administration of specific immunoglobulins, but it is not indication of active infection or stage of disease. Performed By: #### P REGQNT ####[facility] [address] [place] [address] Jovanna TYPE AND SCREENon 02-26-2017 TYPE AND SCREEN Negative Normal [facility] Comment on above: Performed By: #### T NS ####[facility] X[address] [place], [place] [address]Alberto Nugent CBC AUTO DIFFon 02-25-2017 Basophils Auto #/vol (Bld) 0.0 103/ul Normal 0.0-0.1 [facility] Comment on above: Performed By: #### C BC ####[facility] [address]ch[address] [place] [address] Jovanna Basophils/100 WBC Auto (Bld) 0.3 % Normal 0.2-2.0 [facility] Comment on above: Performed By: #### C BC ####[facility] [address] [place] [address] Jovanna Eosinophils 0.1 103/ul Normal 0.0-0.7 [facility] Comment on above: Performed By: #### C BC ####[facility] [address] [place], [place] [address]Gerken Jovanna Eosinophils/100 leukocytes 1.2 % Normal 0.9-7.0 [facility] Comment on above: Performed By: #### C BC ####[facility] [address] [place] [id number] Jovanna Erythrocyte distribution width Auto Ratio (RBC) 13.6 % Normal 11.0-15.0 [facility] Comment on above: Performed By: #### C BC ####[facility] [address] [place] [id number] Jovanna Erythrocytes (RBC) 3.59 106/ul Critically low 4.20-5.40 [facility] Comment on above: Performed By: #### C BC ####[facility] [address]ts[address]30[address] [place], [place] [address]chehk Jovanna Hematocrit (HCT) 32.3 % Critically low 36.0-48.0 [facility] Comment on above: Performed By: #### C BC ####[facility] [address] [place] [id number] Jovanna Hemoglobin mass conc (Bld) 10.7 g/dL Critically low 12.0-16.0 [facility] Comment on above: Performed By: #### C BC ####[facility] [address] [place], [place] [address]Weriap Jovanna IG # 0.11 10e3/ul Critically high 0.00-0.[address] [facility] Comment on above: Performed By: #### C BC ####[facility] [address] [place] [id number] Jovanna IG % 1.2 % Critically high 0.0-0.5 [facility] Comment on above: Performed By: #### C BC ####[facility] S[address]xvyj[address] [place] [id number] Jovanna Lymphocytes 1.4 103/ul Normal 1.2-3.8 [facility] Comment on above: Performed By: #### C BC ####[facility] [address] [place] [id number] Jovanna Lymphocytes/100 leukocytes 15.2 % Critically low 20.5-60.0 [facility] Comment on above: Performed By: #### C BC ####[facility] M[address]hxemps[address] Jovanna MANUAL DIFF REQ NO Normal [facility] Comment on above: Performed By: #### C BC ####[facility] [address]ix[address] [place] [id number] Jovanna MCH 29.8 pg Normal 26.7-34.0 [facility] Comment on above: Performed By: #### C BC ####[facility] Zqujhvwenb[address] Jovanna MCHC mass conc (RBC) 33.1 g/dL Normal 29.9-35.2 [facility] Comment on above: Performed By: #### C BC ####[facility] [address] [place] [address] Jovanna MCV 90.0 fL Normal 81.0-99.0 [facility] Comment on above: Performed By: #### C BC ####[facility] [address]uzpen[address] [place] [address] Jovanna Monocytes 0.5 103/ul Normal 0.3-0.8 [facility] Comment on above: Performed By: #### C BC ####[facility] [address]ffs[address] [place] [address] Jovanna Monocytes/100 leukocytes 5.7 % Normal 1.7-12.0 [facility] Comment on above: Performed By: #### C BC ####[facility] [address]wtf[address] [place] [address] Jovanna Neutrophils 7.2 103/ul Critically high 1.4-6.5 [facility] Comment on above: Performed By: #### C BC ####[facility] [address]ptx[address] [place] [address] Jovanna Neutrophils/100 WBC Auto (Bld) 76.4 % Critically high 43.0-75.0 [facility] Comment on above: Performed By: #### C BC ####[facility] [address] [place] [address] Jovanna Platelet mean volume (PMV) 10.1 fL Normal 9.5-13.5 [facility] Comment on above: Performed By: #### C BC ####[facility] V[address]kbrjdhc[address] Jovanna Platelets 248 103/ul Normal 150-450 [facility] Comment on above: Performed By: #### C BC ####[facility] Ezgbvwqhfp[address]03 [address] Jovanna WBC (Leukocytes) 9.5 103/ul Normal 4.0-11.0 [facility] Comment on above: Performed By: #### C BC ####[facility] [address] [place] [address] Jovanna HIV 1 AND 2 ABon 02-25-2017 HIV 1 AND 2 AB Negative Normal NEGATIVE [facility] Comment on above: Performed By: #### P REGQNT ####[facility] [address] [place] [address] Jovanna PREG QUANT HCGon 02-25-2017 HCG Qn SEE BELOW Normal [facility] Comment on above: Result Comment: 5-50 0-1 WEEK 40-300 1-2 WEEKS 100-1,000 2-3 WEEKS 500-6,000 3-4 WEEKS 5,000-200,000 1-2 MONTHS 10,000-100,000 2-3 MONTHS 3,000-50,000 2ND TRIMESTER 1,000-50,000 3RD TRIMESTER Performed By: #### P REGQNT ####[facility] [address] [place], [place] [address]en HCG QUANT 00091.00 mIU/mL Normal [facility] Comment on above: Performed By: #### P REGQNT ####[facility] [address] [place], [place] [address]en RUBELLA AB IGGon 02-25-2017 RUB HEADER SEE BELOW Normal [facility] Comment on above: Result Comment: or=1 5.0 IU/mL POSITIVE WHO considers levels >or= 10.0 IU/mL to be positive immune status Performed By: #### P REGQNT ####[facility] [address] [place], [place] [address]XbvowfAlberto Nugent RUB IGG 6.8 IU/mL Normal [facility] Comment on above: Performed By: #### P REGQNT ####[facility] [address] [place], [place] [address]SneaqbAlberto Nugent US PREG DATING >14WEEKSon US PREG DATING >14WEEKS [address] [place] [address] Patient: LINNEA CAPELLAN Exam Date: 02/19/2017DOB: 1995 Gender:F : CHAVEZ BACA . Admission #: [id number] : Order #: [id number] HERE TO VIEW EXAM RADIOLOGY REPORT PROCEDURE: ULTRASOUND DATING >14 WEEKS COMPARISON: None. INDICATIONS: Encounter for test, result positive Z32.01; 17w5d single TECHNIQUE: Transabdominal sonographic examination was performed for obstetrical and evaluation. TECHNIQUE: Transabdominal sonographic examination for obstetrical and evaluation.FINDINGS: NUMBER: Single. POSITION: AMNIOTIC FLUID VOLUME: Subjectively normal.PLACENTAL LOCATION: Posterior. BIPARIETAL DIAMETER: 4.1 cm; 18 weeks, 3 daysHEAD CIRCUMFERENCE: 15.4 cm; 18 weeks, 3 daysABD CIRCUMFERENCE: 13.2 cm; 18 weeks, 5 daysFEMUR LENGTH: 2.6 cm; 18 weeks, 0 daysEFW: 236 g (+/- 35 g)EFW PERCENTILE: AUA 83%; % BY EDCHEART RATE: 147 bpmSTRUCTURES: ABNORMALITIES/OTHER: None. BIOMETRY: BPD: 4.12 cm 18 weeks, 3 days 82 % FL/AC: 19.87 HC: 15.44 cm 18 weeks, 3 days 75.70 % FL/BPD: 63.60 AC: 13.18 cm 18 weeks, 5 days 79.20 % HC/AC: 1.17 FL: 2.62 cm 18 weeks, 0 days 54.30 % EFW: 235.97 g 83% by AUA, GESTATIONAL AGE: Clinical Age (by LMP): 17 weeks, 5 days Clinical KIP: 2017-07-25 Ultrasound Age: 18 weeks, 3 days Ultrasound KIP: 2017-07-20 *Reference: [facility] Practice Guideline for the performance of Obstetric Ultrasound Examinations, November 10, 2006. CONCLUSION: 1. Intrauterine gestation of 18 weeks, 3 days Dictated by: Tressa Herzog M.D. on 02/19/2017 at 09:50 Approved by: Tressa Herzog M.D. on 02/19/2017 at 09:51 Normal [facility] CULTURE URINEon 02-14-2017 CULTURE URINE Culture Observations : final, scanned results to follow in hpf Normal [facility] Comment on above: Performed By: #### C XUR ####[facility] G[address] J[place]anna UA RANDOM W/MICROSCOPICon AMORPHOUS CRYSTALS FEW Normal [facility] Comment on above: Performed By: #### U AMIC ####[facility] Ighspendeg[address] J[place]anna Bilirubin (total) Negative Normal NEGATIVE [facility] Comment on above: Performed By: #### U AMIC ####[facility] Julx[address]kxvs[address] [place] BLOOD Negative Normal NEGATIVE [facility] Comment on above: Performed By: #### U AMIC ####[facility] Cytdvintdm[address]273 [address] [place]anna CAST NONE SEEN Normal NONE SEEN [facility] Comment on above: Performed By: #### U AMIC ####[facility] Wwxz[address]icae[address] Jovanna Erythrocytes (RBC) 0-2 Normal 0-2 [facility] Comment on above: Performed By: #### U AMIC ####[facility] W[address] [place]anna Glucose mass conc Negative Normal NEGATIVE [facility] Comment on above: Performed By: #### U AMIC ####[facility] Yj[address] [place]anna MUCOUS SMALL Normal NONE SEEN [facility] Comment on above: Performed By: #### U AMIC ####[facility] [address] [place], [place] [address] Jovanna pH of blood 7.5 [pH] Normal 5-9 [facility] Comment on above: Performed By: #### U AMIC ####[facility] U[address] J[place]anna Protein Negative Normal [facility] Comment on above: Performed By: #### U AMIC ####[facility] Qiphquwlsw[address] [place]anna SPEC GRAVITY 1.020 Normal 1.005-<=1.025 [facility] Comment on above: Performed By: #### U AMIC ####[facility] Bjz[address]un[address] Jovanna Urine, bacteria in sediment TRACE Normal NONE SEEN [facility] Comment on above: Performed By: #### U AMIC ####[facility] Iws[address]rvxit[address] Jovanna Urine, clarity SL CLOUDY Normal [facility] Comment on above: Performed By: #### U AMIC ####[facility] [address] [place] [id number] Jovanna Urine, color LT. YELLOW Normal YELLOW [facility] Comment on above: Performed By: #### U AMIC ####[facility] [address] [place] [address]Gerken Jovanna Urine, crystals in sediment SEEN Normal NONE SEEN [facility] Comment on above: Performed By: #### U AMIC ####[facility] [address] [place] [address]Gerken Jovanna Urine, epithelial cells in sediment FEW Normal [facility] Comment on above: Performed By: #### U AMIC ####[facility] L[address]ht[address] Jovanna Urine, ketones presence Negative Normal NEGATIVE [facility] Comment on above: Performed By: #### U AMIC ####[facility] [address] [place] [address]Gerken Jovanna Urine, nitrite presence Negative Normal NEGATIVE [facility] Comment on above: Performed By: #### U AMIC ####[facility] [address] [place], [place] [address]Sjhiir Karen Urine, urobilinogen 0.2 {Rony'U}/dL Normal [facility] Comment on above: Performed By: #### U AMIC ####[facility] [address] [place], [place] [address]Jkmzml Jovanna WBC (Leukocytes) 0-2 Normal NONE SEEN [facility] Comment on above: Performed By: #### U AMIC ####[facility] [address] [place], [place] [address]Eedgvg Jovanna WBC (Leukocytes) Negative Normal NEGATIVE [facility] Comment on above: Performed By: #### U AMIC ####[facility] [address] [place], [place] [address]Szeqnz Jovanna ABO AND RH TYPEon 02-06-2017 ABO AND RH TYPE Positive Normal [facility] Comment on above: Performed By: #### A ALYCIA ####[facility] [address] [place], [place] [address]Izqffl Jovanna PREG QUANT HCGon 02-06-2017 HCG Qn SEE BELOW Normal [facility] Comment on above: Result Comment: 5-50 0-1 WEEK 40-300 1-2 WEEKS 100-1,000 2-3 WEEKS 500-6,000 3-4 WEEKS 5,000-200,000 1-2 MONTHS 10,000-100,000 2-3 MONTHS 3,000-50,000 2ND TRIMESTER 1,000-50,000 3RD TRIMESTER Performed By: #### P REGQNT ####[facility] [address] [place], [place] [address]Tghhqu Jovanna HCG QUANT 53660.00 mIU/mL Normal [facility] Comment on above: Performed By: #### P REGQNT ####[facility] [address] [place], [place] [address]Tklhou Jovanna Encounters Encounter Date Encounter Type Care Provider Facility Start: 01-13-2023 End: 01-13-2023 ambulatory SONAM SOTELO Not Available Start: 12-30-2022 End: 12-30-2022 ambulatory ISAIAS LUX Not Available Start: 09-15-2021 End: 09-15-2021 ambulatory Oly Marie Other [facility] Other Start: 09-15-2021 Nursing evaluation o f patient and report Oly Marie [facility] Start: 07-28-2017 End: 07-28-2017 Ambulatory CHAVEZ BACA Facility:[facility]1 Start: 07-22-2017 End: 07-24-2017 Evaluation and management of inpatient SONAM SOTELO Facility:[facility] Start: 06-27-2017 End: 06-28-2017 Ambulatory CHAVEZ BACA Facility:[facility]1 Start: 06-25-2017 End: 06-26-2017 Ambulatory CHAVEZ BACA Facility:[facility]1 Start: 05-16-2017 End: 05-17-2017 Ambulatory CHAVEZ BACA Facility:[facility]1 Start: 04-25-2017 End: 04-26-2017 Ambulatory CHAVEZ BACA Facility:[facility]1 Start: 03-10-2017 End: 03-11-2017 Ambulatory CHAVEZ BACA Facility:[facility]1 Start: 02-26-2017 End: 02-26-2017 Ambulatory CHAVEZ BACA Facility:[facility]1 Start: 02-25-2017 End: 02-26-2017 Ambulatory CHAVEZ BACA Facility:[facility]1 Start: 02-19-2017 End: 02-20-2017 Ambulatory CHAVEZ BACA Facility:[facility]1 Start: 02-14-2017 End: 02-14-2017 Ambulatory CHAVEZ BACA Facility:[facility]1 Start: 02-06-2017 End: 02-07-2017 Ambulatory CHAVEZ BACA Facility:[facility]1 Procedures Date Procedure Procedure Detail Performing Clinician Start: 07-22-2017 Insertion of Contrac eptive Device into Left Upper Arm Subcutaneous Tissue and Fascia, Percutaneous Approach CHAVEZ BACA Start: 07-22-2017 Delivery of Products of Conception, External Approach CHAVEZ BACA Start: 07-22-2017 Division of Female P erineum, External Approach CHAVEZ BACA Start: 07-22-2017 Drainage of Amniotic Fluid, Therapeutic from Products of Conception, Via Natural or Artificial Opening CHAVEZ BACA Start: 07-22-2017 Repair Perineum Musc le, Open Approach CHAVEZ BACA Payers Date Payer Category Payer Unknown [id number] 1995 Unknown [id number] 1995 Unknown [id number] 1961 Private Health Insurance [id number] Social History Date Type Detail Facility Sex Assigned At [facility] Other Evaluation note 09-15-2021 Note Date & Type Note Facility 09-15-2021 Evaluation note Encounter Date Diagnosis Assessment Notes Sep, Cough, unspecified type (ICD-10 - R05.9) [place] [employer] Other Summary Purpose Family History No Family History Records FoundNo Family History Records Found Advance Directives No Advanced Directives Records FoundNo Advanced Directives Records Found Additional Source Comments INFORMATION SOURCE (unrecogn ized section and content) DATE CREATED AUTHOR 08/11/2017 [facility] DATE CREATED AUTHOR 'S ORGANIZ ATION 01/14/2023 [facility] EPIC FOR RECORDS PERTAINING TO PATIENTS WHO ARE OR HAVE BEEN ENROLLED IN A CHEMICAL DEPENDENCY/SUBSTANCEABUSE PROGRAM, SOME INFORMATION MAY BE OMITTED. This clinical summary was aggregated from multiple sources. Caution should be exercised in using it in the provision of clinical care. This summary normalizes information from multiple sources, and as a consequence, information in this document may materially change the coding, format and clinical context of patient data. In addition, data may be omitted in some cases. CLINICAL DECISIONS SHOULD BE BASED ON THE PRIMARY CLINICAL RECORDS. [facility] [employer] provides no warranty or guarantee of the accuracy or completeness of information in this document.
== END 2023-02-11 09:40 | disposition home or self-care (01) ==
LOC: US 09:39
PROVIDERS: Visit Provider Obstetrics & Gynecology
DX: O26.843 Uterine size-date discrepancy, third trimester (principal); Z3A.35 35 weeks gestation of pregnancy
CPT/HCPCS: 76816

== ENCOUNTER 2023-02-13 19:48 | Outpatient (REF) | payer OTHER, SELFPAY ==
--- OUTSIDE RECORDS SUMMARY | 2023-02-13 19:51 | XMS_ITS | CCD ---
Author Name Unknown Address [address] [place] [address] Organization [facility] Providers Care Associate Professor Of Chemistry Name Role Phone CHAVEZ BACA Unavailable Unavailable CHAVEZ BACA Unavailable Unavailable CHAVEZ BACA Unavailable Unavailable CHAVEZ BACA Unavailable Unavailable CHAVEZ BACA Unavailable Unavailable TRESSA HERZOG V Unavailable Unavailable CHAEVZ BACA Unavailable Unavailable CHAVEZ BACA Unavailable Unavailable [...] BACA Unavailable Unavailable CHAVEZ BACA Unavailable Unavailable MISC, DOCTOR Unavailable Unavailable CHAVEZ BACA Unavailable Unavailable CHAVEZ BACA Unavailable Unavailable CANDY BACAA Unavailable Unavailable CANDY BACAA Unavailable Unavailable CANDY BACAA Unavailable Unavailable CANDY BACAA Unavailable Unavailable CANDY BACAA Unavailable Unavailable CHAVEZ BACA Unavailable Unavailable CHAVEZ ABCA Unavailable Unavailable DEEPAK, SONAM Unavailable Unavailable DEEPAK, SONAM Unavailable Unavailable CARRIE HAWKINS Unavailable Unavailable MISC, DOCTOR Unavailable Unavailable DEEPAK, SONAM Unavailable Unavailable CHAVEZ BACA Unavailable Unavailable DEEPAK, SONAM Unavailable Unavailable Oly Marie Unavailable ISAIAS LUX Attending Unavailable DEEPAK, SONAM Attending Unavailable DEEPAK, SONAM Attending Unavailable Problems [...] Facility COVID Quick Testingon 2021 Result Positive [facility] Other CBC AUTO DIFFon 07-23-2017 Basophils Auto #/vol (Bld) 0.0 103/ul Normal 0.0-0.1 [facility] Comment on above: Performed By: #### U AMIC ####[facility] Fofhfjagyt6861 [place], [place] [address]Vunnip Jovanna Basophils/100 WBC Auto (Bld) 0.2 % Normal 0.2-2.0 [facility] Comment on above: Performed By: #### U AMIC ####[facility] Jdsyvfwwje4821 [address] [place] Eosinophils 0.0 103/ul Normal 0.0-0.7 [facility] Comment on above: Performed By: #### U AMIC ####[facility] [address] [place], [place] [address]Gerken Jovanna Eosinophils/100 leukocytes 0.2 % Critically low 0.9-7.0 [facility] Comment on above: Performed By: #### U AMIC ####[facility] Aivrdtcwis[address] [place] [address] Jovanna Erythrocyte distribution width Auto Ratio (RBC) 14.3 % Normal 11.0-15.0 [facility] Comment on above: Performed By: #### U AMIC ####[facility] Vjr[address]emlqa[address] [place] [address] J[place]anna Erythrocytes (RBC) 3.30 106/ul Critically low 4.20-5.40 [facility] Comment on above: Performed By: #### U AMIC ####[facility] Ikftpigqkp5675[address] [place] [address] J[place]anna Hematocrit (HCT) 28.5 % Critically low 36.0-48.0 [facility] Comment on above: Performed By: #### U AMIC ####[facility] Habhraxfcl[address] [place] [address] Jovanna Hemoglobin mass conc (Bld) 9.5 g/dL Critically low 12.0-16.0 [facility] Comment on above: Performed By: #### U AMIC ####[facility] [address] [place], [place] [address]Gerken Jovanna IG # 0.07 10e3/ul Critically high 0.00-0.03 [facility] Comment on above: Performed By: #### U AMIC ####[facility] Xjufttpjdt20[address] [place], [place] [address]Gerken [place]anna IG % 0.5 % Normal 0.0-0.5 [facility] Comment on above: Performed By: #### U AMIC ####[facility] Yevgrelhgs[address] [place], [place] [address]Gerken [place]anna Lymphocytes 1.1 103/ul Critically low 1.2-3.8 [facility] Comment on above: Performed By: #### U AMIC ####[facility] Yznlvrnhmv6258 [address] [place] Lymphocytes/100 leukocytes 7.3 % Critically low 20.5-60.0 [facility] Comment on above: Performed By: #### U AMIC ####[facility] Hnmbhxowua0716 [address] [place] MANUAL DIFF REQ NO Normal [facility] Comment on above: Performed By: #### U AMIC ####[facility] Nvcvbiwqan1691 [address] [place] MCH 28.8 pg Normal 26.7-34.0 [facility] Comment on above: Performed By: #### U AMIC ####[facility] Eorsmgtufx2192 [address] [place]anna MCHC mass conc (RBC) 33.3 g/dL Normal 29.9-35.2 [facility] Comment on above: Performed By: #### U AMIC ####[facility] Iwludlctpp[address] [place] [address] Jovanna MCV 86.4 fL Normal 81.0-99.0 [facility] Comment on above: Performed By: #### U AMIC ####[facility] Siodtqmetf9108 [address] [place] Monocytes 0.7 103/ul Normal 0.3-0.8 [facility] Comment on above: Performed By: #### U AMIC ####[facility] Oshxlzczaw6562 [address] [place] Monocytes/100 leukocytes 4.7 % Normal 1.7-12.0 [facility] Comment on above: Performed By: #### U AMIC ####[facility] Gwfavnjacy9443 [place] [address]Gerken Jovanna Neutrophils 12.8 103/ul Critically high 1.4-6.5 [facility] Comment on above: Performed By: #### U AMIC ####[facility] Icjsmhmcqw6814 [place], [place] [address]Xblxwa Jovanna Neutrophils/100 WBC Auto (Bld) 87.1 % Critically high 43.0-75.0 [facility] Comment on above: Performed By: #### U AMIC ####[facility] Qoqueyvgho0205 [place], [place] [address]Wexiyi Jovanna Platelet mean volume (PMV) 10.0 fL Normal 9.5-13.5 [facility] Comment on above: Performed By: #### U AMIC ####[facility] Zmhbgfkupa2213 [place], [place] [address]Vbnsqc Jovanna Platelets 171 103/ul Normal 150-450 [facility] Comment on above: Performed By: #### U AMIC ####[facility] Xnjlf[address]fm[address] [place] [address]Doxwmk Jovanna WBC (Leukocytes) 14.7 103/ul Critically high 4.0-11.0 [facility] Comment on above: Performed By: #### U AMIC ####[facility] Obhfrdasfc9976 [place], [place] [address]Fnuetd Jovanna CBC AUTO DIFFon 07-22-2017 Basophils Auto #/vol (Bld) 0.0 103/ul Normal 0.0-0.1 [facility] Comment on above: Performed By: #### U AMIC ####[facility] Eebkfqwiqp0923 [place], [place] [address]Hnufcr Jovanna Basophils/100 WBC Auto (Bld) 0.2 % Normal 0.2-2.0 [facility] Comment on above: Performed By: #### U AMIC ####[facility] Gwomfbgf[address] [place] [address]Xcpoqv Jovanna Eosinophils 0.1 103/ul Normal 0.0-0.7 [facility] Comment on above: Performed By: #### U AMIC ####[facility] Rrjpclnqwi2134 [place], [place] [address]Ftfnxn Jovanna Eosinophils/100 leukocytes 0.4 % Critically low 0.9-7.0 [facility] Comment on above: Performed By: #### U AMIC ####[facility] Umvixhofqy8935 [place] [id number] [place]ovanna Erythrocyte distribution width Auto Ratio (RBC) 14.5 % Normal 11.0-15.0 [facility] Comment on above: Performed By: #### U AMIC ####[facility] Guplbxpxtr2255 [place] [id number] Jovanna Erythrocytes (RBC) 3.83 106/ul Critically low 4.20-5.40 [facility] Comment on above: Performed By: #### U AMIC ####[facility] Zalpjacokv6409 [place] [id number] Jovanna Hematocrit (HCT) 33.0 % Critically low 36.0-48.0 [facility] Comment on above: Performed By: #### U AMIC ####[facility] Mxuyogbnkw0453 [address] [place]anna Hemoglobin mass conc (Bld) 11.0 g/dL Critically low 12.0-16.0 [facility] Comment on above: Performed By: #### U AMIC ####[facility] Gaqkfseech9449 [place] [address]Gerken Jovanna IG # 0.06 10e3/ul Critically high 0.00-0.03 [facility] Comment on above: Performed By: #### U AMIC ####[facility] Oknaqhlzwr5577 [address] [place] IG % 0.4 % Normal 0.0-0.5 [facility] Comment on above: Performed By: #### U AMIC ####[facility] Ksfhfgmpju5878 [place] [id number] [place]ovanna Lymphocytes 1.1 103/ul Critically low 1.2-3.8 [facility] Comment on above: Performed By: #### U AMIC ####[facility] Vwaylawxpi3782 [address] [place] Lymphocytes/100 leukocytes 7.0 % Critically low 20.5-60.0 [facility] Comment on above: Performed By: #### U AMIC ####[facility] Xjlmifpaia0943 [place], [place] [address]Vbbiab Jovanna MANUAL DIFF REQ NO Normal [facility] Comment on above: Performed By: #### U AMIC ####[facility] Dcnwspqqpv8618 [place], [place] [address]Dghdrk Jovanna MCH 28.7 pg Normal 26.7-34.0 [facility] Comment on above: Performed By: #### U AMIC ####[facility] Xreviytssk1068 [place], [place] [address]Fmgnyg Jovanna MCHC mass conc (RBC) 33.3 g/dL Normal 29.9-35.2 [facility] Comment on above: Performed By: #### U AMIC ####[facility] Vimavbylsp[address] [place], [place] [address]Gerken Jovanna MCV 86.2 fL Normal 81.0-99.0 [facility] Comment on above: Performed By: #### U AMIC ####[facility] Qjsjntvlkp9162 [place] [phone] Jovanna Monocytes 0.8 103/ul Normal 0.3-0.8 [facility] Comment on above: Performed By: #### U AMIC ####[facility] Fiwcprdvbe[address] [place], [place] [address]Gerken Jovanna Monocytes/100 leukocytes 4.9 % Normal 1.7-12.0 [facility] Comment on above: Performed By: #### U AMIC ####[facility] Ulfgyyqfkj8443 [place] [id number] Jovanna Neutrophils 14.0 103/ul Critically high 1.4-6.5 [facility] Comment on above: Performed By: #### U AMIC ####[facility] Xwtwuwsixv4840 [place] [id number] Jovanna Neutrophils/100 WBC Auto (Bld) 87.1 % Critically high 43.0-75.0 [facility] Comment on above: Performed By: #### U AMIC ####[facility] Cfttnmnlkj6742 [address] [place] Platelet mean volume (PMV) 11.5 fL Normal 9.5-13.5 [facility] Comment on above: Performed By: #### U AMIC ####[facility] Ckxrcffeoi4085 [address] [place] Platelets 204 103/ul Normal 150-450 [facility] Comment on above: Performed By: #### U AMIC ####[facility] Imgqjrhgxa6921 [address] [place]anna WBC (Leukocytes) 16.0 103/ul Critically high 4.0-11.0 [facility] Comment on above: Performed By: #### U AMIC ####[facility] Zfagqfrzct[address] [place] [address] J[place]anna DRUG SCREEN RAPID (URINE)on 07-22-2017 AMP Negative Normal NEGATIVE [facility] Comment on above: Performed By: #### U AMIC ####[facility] Fyexaadcnc[address] [place] [address] Jovanna BAR Negative Normal NEGATIVE [facility] Comment on above: Performed By: #### U AMIC ####[facility] Hnxwpixbao0[address] [place] [address] Jovanna BUP Negative Normal NEGATIVE [facility] Comment on above: Performed By: #### U AMIC ####[facility] Yhasdxggle25[address] [place] [address] J[place]anna BZO Negative Normal NEGATIVE [facility] Comment on above: Performed By: #### U AMIC ####[facility] Nfxfdchclv6[address] [place] [address] J[place]anna KENNETH Negative Normal NEGATIVE [facility] Comment on above: Performed By: #### U AMIC ####[facility] Eimtxmiecj40[address] [place] [address] Jovanna CUT-OFFS SEE BELOW Normal [facility] Comment on above: Result Comment: AMP (Amphetamine): [...] 300 ng/mL Performed By: #### U AMIC ####[facility] [address]js[address] [place] [address] DRUG CUT HEADER DRUG CLASS TEST SYSTEM CUT-OFF CONCENTRATIONS ARE FOLLOWS: Normal [facility] Comment on above: Performed By: #### U AMIC ####[facility] Pukcapydff[address] [place] [address] mAMP Negative Normal NEGATIVE [facility] Comment on above: Performed By: #### U AMIC ####[facility] Enycekglez[address] [place] [address] MTD Negative Normal NEGATIVE [facility] Comment on above: Performed By: #### U AMIC ####[facility] Ltbmdbhbfy[address] [place] [address] OPI Negative Normal NEGATIVE [facility] Comment on above: Performed By: #### U AMIC ####[facility] Mqotkeqqiz[address] [place] [address] OXY Negative Normal NEGATIVE [facility] Comment on above: Performed By: #### U AMIC ####[facility] Gohizhzoxr[address] [place] [address] PCP Negative Normal NEGATIVE [facility] Comment on above: Performed By: #### U AMIC ####[facility] Oslzgnplov[address] [place] [address] PPX Negative Normal NEGATIVE [facility] Comment on above: Performed By: #### U AMIC ####[facility] Lllstaloop[address] [place] [address] TCA Negative Normal NEGATIVE [facility] Comment on above: Performed By: #### U AMIC ####[facility] Nqmdkwbbpy0373 [address] [place] THC Negative Normal NEGATIVE [facility] Comment on above: Performed By: #### U AMIC ####[facility] Kfqcgzonkw0657 [address] [place] CHLAMYDIA/GONOCOCCUS LOR W/C ONF. (SWAB/Uon 06-28-2017 Chlamydia Trach LOR Negative Normal Negative [facility] Comment on above: Performed By: #### U AMIC ####[facility] Urfytqpxev4[address] [place] [address] Jovanna N. Gonorrhoeae LOR Negative Normal Negative [facility] Comment on above: Performed By: #### U AMIC ####[facility] Pnuzxfptqx[address] [place] [address] Jovanna CBC AUTO DIFFon 06-27-2017 Basophils Auto #/vol (Bld) 0.0 103/ul Normal 0.0-0.1 [facility] Comment on above: Performed By: #### U AMIC ####[facility] Hqfivrhxpv7[address] [place] [address] Jovanna Basophils/100 WBC Auto (Bld) 0.2 % Normal 0.2-2.0 [facility] Comment on above: Performed By: #### U AMIC ####[facility] [address]rrj[address] [place] [address] Jovanna Eosinophils 0.1 103/ul Normal 0.0-0.7 [facility] Comment on above: Performed By: #### U AMIC ####[facility] Nqqprkgvtl[address] [place] [address] Jovanna Eosinophils/100 leukocytes 1.2 % Normal 0.9-7.0 [facility] Comment on above: Performed By: #### U AMIC ####[facility] Qujcibywll[address] [place] [address] Jovanna Erythrocyte distribution width Auto Ratio (RBC) 12.9 % Normal 11.0-15.0 [facility] Comment on above: Performed By: #### U AMIC ####[facility] Otyuhfubez7135 [address] [place] Erythrocytes (RBC) 3.47 106/ul Critically low 4.20-5.40 [facility] Comment on above: Performed By: #### U AMIC ####[facility] Mxcubobkrc0434 [address] [place] Hematocrit (HCT) 30.6 % Critically low 36.0-48.0 [facility] Comment on above: Performed By: #### U AMIC ####[facility] Vmlzisyuqx3559 [address] [place] Hemoglobin mass conc (Bld) 10.1 g/dL Critically low 12.0-16.0 [facility] Comment on above: Performed By: #### U AMIC ####[facility] Covkcgihpk4325[address] [place] [address] Jovanna IG # 0.03 10e3/ul Normal 0.00-0.03 [facility] Comment on above: Performed By: #### U AMIC ####[facility] Jwmhcboely6964[address] [place] [address] Jovanna IG % 0.3 % Normal 0.0-0.5 [facility] Comment on above: Performed By: #### U AMIC ####[facility] Uawozihilc[address] [place] [address] J[place] Lymphocytes 1.6 103/ul Normal 1.2-3.8 [facility] Comment on above: Performed By: #### U AMIC ####[facility] Gsghxuidod9825 [address] [place] Lymphocytes/100 leukocytes 17.3 % Critically low 20.5-60.0 [facility] Comment on above: Performed By: #### U AMIC ####[facility] Qsrjeywnwt6501 [address] [place] MANUAL DIFF REQ NO Normal [facility] Comment on above: Performed By: #### U AMIC ####[facility] Ilgylwmgog1658 [place], [place] [address]Fzxvhr Jovanna MCH 29.1 pg Normal 26.7-34.0 [facility] Comment on above: Performed By: #### U AMIC ####[facility] Enzqwhqgmg6396 [place], [place] [address]Yqpxjo Jovanna MCHC mass conc (RBC) 33.0 g/dL Normal 29.9-35.2 [facility] Comment on above: Performed By: #### U AMIC ####[facility] Jonmomtzar4725 [place] [id number] Jovanna MCV 88.2 fL Normal 81.0-99.0 [facility] Comment on above: Performed By: #### U AMIC ####[facility] Plkztwqlzh[address] [place], [place] [address]Gerken Jovanna Monocytes 0.7 103/ul Normal 0.3-0.8 [facility] Comment on above: Performed By: #### U AMIC ####[facility] Gvbyqicekw[address] [place], [place] [address]Gerken Jovanna Monocytes/100 leukocytes 7.7 % Normal 1.7-12.0 [facility] Comment on above: Performed By: #### U AMIC ####[facility] Wnoncbjubj42[address] [place], [place] [address]Gerken Jovanna Neutrophils 6.6 103/ul Critically high 1.4-6.5 [facility] Comment on above: Performed By: #### U AMIC ####[facility] Tmwlwrkjck2486 [place] [id number] Jovanna Neutrophils/100 WBC Auto (Bld) 73.3 % Normal 43.0-75.0 [facility] Comment on above: Performed By: #### U AMIC ####[facility] Kijchhomdm004[address] [place], [place] [address]Gerken Jovanna Platelet mean volume (PMV) 10.4 fL Normal 9.5-13.5 [facility] Comment on above: Performed By: #### U AMIC ####[facility] Qilhnnwgxi1407 [place], [place] [address]Zqzirq Jovanna Platelets 235 103/ul Normal 150-450 [facility] Comment on above: Performed By: #### U AMIC ####[facility] Xrkjjjeugp[address] [place] [address]Sewnvc Jovanna WBC (Leukocytes) 9.1 103/ul Normal 4.0-11.0 [facility] Comment on above: Performed By: #### U AMIC ####[facility] Nbgkhjmvbj53[address] [place], [place] [address]Gerken Jovanna GROUP B STREPTon 06-25-2017 GBS Performed by [facility] , final report to follow Normal NEG FOR GBS [facility] Comment on above: Performed By: #### U AMIC ####[facility] Kxhtmsdcgo[address] [place], [place] [address]Gerken [place]ovanna CBC AUTO DIFFon 05-16-2017 Basophils Auto #/vol (Bld) 0.0 103/ul Normal 0.0-0.1 [facility] Comment on above: Performed By: #### P REGQNT ####[facility] Obvajtqppx65[address] [place], [place] [address]Gerken [place]ovanna Basophils/100 WBC Auto (Bld) 0.2 % Normal 0.2-2.0 [facility] Comment on above: Performed By: #### P REGQNT ####[facility] Vfqnxbavvn08[address] [place], [place] [address]Gerken [place]ovanna Eosinophils 0.1 103/ul Normal 0.0-0.7 [facility] Comment on above: Performed By: #### P REGQNT ####[facility] Nerdaoxbqd485[address] [place], [place] [address]Gerken Jovanna Eosinophils/100 leukocytes 0.7 % Critically low 0.9-7.0 [facility] Comment on above: Performed By: #### P REGQNT ####[facility] Hijygtutus48[address] [place], [place] [address]Gerken Jovanna Erythrocyte distribution width Auto Ratio (RBC) 12.6 % Normal 11.0-15.0 [facility] Comment on above: Performed By: #### P REGQNT ####[facility] Lcwfzkvhjl4041 [address] [place] Erythrocytes (RBC) 3.42 106/ul Critically low 4.20-5.40 [facility] Comment on above: Performed By: #### P REGQNT ####[facility] Wvbugptxkn1818 [place] [id number] Jovanna Hematocrit (HCT) 30.4 % Critically low 36.0-48.0 [facility] Comment on above: Performed By: #### P REGQNT ####[facility] Xtmmgubalj0340 [address] [place] Hemoglobin mass conc (Bld) 10.3 g/dL Critically low 12.0-16.0 [facility] Comment on above: Performed By: #### P REGQNT ####[facility] Qofawntvom[address] [place] [address] Jovanna IG # 0.08 10e3/ul Critically high 0.00-0.03 [facility] Comment on above: Performed By: #### P REGQNT ####[facility] Bybwijjxax6[address] [place] [address] Jovanna IG % 0.6 % Critically high 0.0-0.5 [facility] Comment on above: Performed By: #### P REGQNT ####[facility] Rudoxfyfhl[address] [place] [address] Jovanna Lymphocytes 1.2 103/ul Normal 1.2-3.8 [facility] Comment on above: Performed By: #### P REGQNT ####[facility] Vrthqacemx[address] [place] [address] Jovanna Lymphocytes/100 leukocytes 9.3 % Critically low 20.5-60.0 [facility] Comment on above: Performed By: #### P REGQNT ####[facility] Xxuxdcgnny[address] [place] [address] J[place]anna MANUAL DIFF REQ NO Normal [facility] Comment on above: Performed By: #### P REGQNT ####[facility] Oidrbpbnvt9088 [place], [place] [address]Wrgvey Karen MCH 30.1 pg Normal 26.7-34.0 [facility] Comment on above: Performed By: #### P REGQNT ####[facility] Jmdnfgxhhf7985 [place], [place] [address]Kdgcuu Karen MCHC mass conc (RBC) 33.9 g/dL Normal 29.9-35.2 [facility] Comment on above: Performed By: #### P REGQNT ####[facility] Etmmmcsoob7479 [place], [place] [address]Nlohom Jovanna MCV 88.9 fL Normal 81.0-99.0 [facility] Comment on above: Performed By: #### P REGQNT ####[facility] Mllecihxkt8835 [place], [place] [address]Lduevy Jovanna Monocytes 0.7 103/ul Normal 0.3-0.8 [facility] Comment on above: Performed By: #### P REGQNT ####[facility] Radncxhdda3879 [place], [place] [address]Zrdxqs Jovanna Monocytes/100 leukocytes 5.3 % Normal 1.7-12.0 [facility] Comment on above: Performed By: #### P REGQNT ####[facility] Snftavjwdn4442 [place], [place] [address]Ctdurf Jovanna Neutrophils 10.5 103/ul Critically high 1.4-6.5 [facility] Comment on above: Performed By: #### P REGQNT ####[facility] Wtpltjbgnn9441 [place], [place] [address]Pnxuib Jovanna Neutrophils/100 WBC Auto (Bld) 83.9 % Critically high 43.0-75.0 [facility] Comment on above: Performed By: #### P REGQNT ####[facility] Vxzrljvtxh6202 [place], [place] [address]Pjnino Jovanna Platelet mean volume (PMV) 9.0 fL Critically low 9.5-13.5 [facility] Comment on above: Performed By: #### P REGQNT ####[facility] Rwyzdwmrox2006 [place], [place] [address]Saageh Jovanna Platelets 233 103/ul Normal 150-450 [facility] Comment on above: Performed By: #### P REGQNT ####[facility] Ilgljpxxpk2578 [place], [place] [address]Tsmpgm Karen WBC (Leukocytes) 12.6 103/ul Critically high 4.0-11.0 [facility] Comment on above: Performed By: #### P REGQNT ####[facility] Gvzlxyhvdy9526 [place], [place] [address]Ntvdgc Karen GLUCOSE - 1HRon 05-16-2017 Glucose mass conc 112 mg/dL Critically high 74-106 [facility] Comment on above: Performed By: #### P REGQNT ####[facility] Fhihxwpxwe1498 [place], [place] [address]MbyvpyAlberto [facility] US PREG INCOMPLETE ANATOMYon 04-25-2017 US PREG INCOMPLETE ANATOMY [address] [place] [address] Patient: LINNEA CAPELLAN Exam Date: 04/25/2017DOB: 1995 Gender:F : CHAVEZ BACA . Admission #: [id number] : Order #: [id number] HERE TO VIEW EXAM RADIOLOGY REPORT PROCEDURE: [...] M.D. on 04/25/2017 at 11:42 Normal [facility] US PREG ANATOMY SINGLEon US PREG ANATOMY SINGLE [address] [place] [address] Patient: LINNEA CAPELLAN Exam Date: 03/10/2017DOB: 1995 Gender:F : CHAVEZ BACA . Admission #: [id number] : Order #: [id number] HERE TO VIEW EXAM RADIOLOGY REPORT PROCEDURE: [...] Barbosa M.D. on 03/10/2017 at 12:18 Normal [facility] PAP ACOG PANEL 4: 21 to 29on 03-03-2017 Age Gdln ACOG Testing - Normal [facility] Comment on above: Performed By: #### P REGQNT ####[facility] Vmtcmlygpq3282 [address] Chlamydia, Nuc. Acid Amp Negative Normal Negative [facility] Comment on above: Result Comment: Perf ormed at: =G Performed By: #### P REGQNT ####[facility] [address] [place] [address] DIAGNOSIS: Comment Normal [facility] Comment on above: Result Comment: NEGA TIVE FOR INTRAEPITHELIAL LESION AND MALIGNANCY.Performed at: WB Performed By: #### P REGQNT ####[facility] Imhuilpdez9254 [address] Gonococcus, Nuc. Acid Amp Negative Normal Negative [facility] Comment on above: Result Comment: Perf ormed at: =G Performed By: #### P REGQNT ####[facility] [address] [place] [address] Methodology: Comment Normal [facility] Comment on above: Result Comment: This liquid based ThinPrep(R) pap test was screened with theuse of an image guided system.Performed at: WB Performed By: #### P REGQNT ####[facility] [address] [place] [address] Note: Comment Normal [facility] Comment on above: Result Comment: The Pap smear is a screening test designed to aid in the detection ofpremalignant and malignant conditions of the uterine cervix. It is not adiagnostic procedure and should not be used as the sole means of detectingcervical cancer. Both false-positive and false-negative reports do occur. .Performed at: WB Performed By: #### P REGQNT ####[facility] [address] [place] [address] Performed by: Comment Normal [facility] Comment on above: Result Comment: Florentin Collins, Bioinformatics Assistant (ASCP)Performed at: WB Performed By: #### P REGQNT ####[facility] [address] [place] [address] Reflex Criteria: Comment Normal [facility] Comment on above: Result Comment: The HPV DNA reflex criteria were not met with this specimen resulttherefore, no HPV testing was performed. .Performed at: WB Performed By: #### P REGQNT ####[facility] [address] [place] [address] Specimen adequacy: Comment Normal [facility] Comment on above: Result Comment: Sati sfactory for evaluation. Endocervical and/or squamous metaplasticcells (endocervical component) are present.Performed at: WB Performed By: #### P REGQNT ####[facility] [address] [place] [address] Trich vag by LOR Negative Normal Negative [facility] Comment on above: Result Comment: Perf ormed at: =G Performed By: #### P REGQNT ####[facility] [address] [place] [address] Jovanna . . Normal [facility] Comment on above: Result Comment: Perf ormed at: WB Performed By: #### P REGQNT ####[facility] [address] [place] [address] HEP B SURFACE AGon 8 BSA (Body Surface Area) Negative Normal Negative [facility] Comment on above: Performed By: #### H EPBSUR ####[facility] [address] [place] [address] HEPATITIIS C VIRUS ANTIBODYo n 02-27-2017 Hep C Virus Ab <0.1 Normal 0.0-0.9 [facility] Comment on above: Result Comment: Nega tive: < 0.8 Indeterminate: 0.8 - 0.9 Positive: > 0.9 . The CDC recommends that a positive HCV antibody result be followed up with a HCV Nucleic Acid Amplification test (215901). Performed By: #### H CV ####[facility] [address] [place] [address] J[place]anna HGB(ELECTP) FRACTION PROFILE on 02-27-2017 Hemoglobin mass conc (Bld) 3.0 % Normal 1.8-3.2 [facility] Comment on above: Result Comment: Pl ease note reference interval change Performed By: #### P REGQNT ####[facility] [address] [place] [address] [place] Hemoglobin mass conc (Bld) 0.0 % Normal 0.0 [facility] Comment on above: Performed By: #### P REGQNT ####[facility] [address] [place] [address] [place] Hemoglobin mass conc (Bld) Negative Normal Negative [facility] Comment on above: Performed By: #### P REGQNT ####[facility] [address] [place] [address] [place] Hemoglobin mass conc (Bld) 0.5 % Normal 0.0-2.0 [facility] Comment on above: Result Comment: Pl ease note reference interval change Performed By: #### P REGQNT ####[facility] [address] [place] [address] [place] Hemoglobin mass conc (Bld) 96.5 % Normal 96.4-98.8 [facility] Comment on above: Result Comment: Pl ease note reference interval change Performed By: #### P REGQNT ####[facility] [address] [place] [address] J[place]anna Hemoglobin mass conc (Bld) Normal [facility] Comment on above: Performed By: #### P REGQNT ####[facility] [address]te[address] [place] [address] J[place]anna Interpretation Comment Normal [facility] Comment on above: Result Comment: Norm al adult hemoglobin present. Performed By: #### P REGQNT ####[facility] Ybsigbrlog1726 [address] [place] RPR QUANTon 02-27-2017 Rapid Plasma Reagin, Quant Non Reactive Normal NonRea<1:1 [facility] Comment on above: Performed By: #### P REGQNT ####[facility] [address] [place] [address] [place] VARICELLA IGG ABon 8 Varicella Zoster IgG <135 Critically low Immune >165 [facility] Comment on above: Result Comment: Nega tive <135 Equivocal 135 - 165 Positive >165 A positive result generally indicates exposure to the pathogen or administration of specific immunoglobulins, but it is not indication of active infection or stage of disease. Performed By: #### P REGQNT ####[facility] [address] [place] [address] [place] TYPE AND SCREENon 02-26-2017 TYPE AND SCREEN Negative Normal [facility] Comment on above: Performed By: #### T NS ####[facility] [address] [place] [address] [place] CBC AUTO DIFFon 02-25-2017 Basophils Auto #/vol (Bld) 0.0 103/ul Normal 0.0-0.1 [facility] Comment on above: Performed By: #### C BC ####[facility] [address] [place] [address] [place] Basophils/100 WBC Auto (Bld) 0.3 % Normal 0.2-2.0 [facility] Comment on above: Performed By: #### C BC ####[facility] [address] [place] [address] [place] Eosinophils 0.1 103/ul Normal 0.0-0.7 [facility] Comment on above: Performed By: #### C BC ####[facility] [address] [place] [address] [place] Eosinophils/100 leukocytes 1.2 % Normal 0.9-7.0 [facility] Comment on above: Performed By: #### C BC ####[facility] [address] [place] [address] [place] Erythrocyte distribution width Auto Ratio (RBC) 13.6 % Normal 11.0-15.0 [facility] Comment on above: Performed By: #### C BC ####[facility] Creghbbnek2606 [address] [place] Erythrocytes (RBC) 3.59 106/ul Critically low 4.20-5.40 [facility] Comment on above: Performed By: #### C BC ####[facility] Odagr[address]93 [place] [id number] Hematocrit (HCT) 32.3 % Critically low 36.0-48.0 [facility] Comment on above: Performed By: #### C BC ####[facility] Irnfibkqkl[address]23 [address] [place] Hemoglobin mass conc (Bld) 10.7 g/dL Critically low 12.0-16.0 [facility] Comment on above: Performed By: #### C BC ####[facility] Twmxrpjs[address]176 [place] [id number] IG # 0.11 10e3/ul Critically high 0.00-0.03 [facility] Comment on above: Performed By: #### C BC ####[facility] Ibtpdpexzr0795 [address] [place] IG % 1.2 % Critically high 0.0-0.5 [facility] Comment on above: Performed By: #### C BC ####[facility] Smpjaykseh[address]14 [address] [place] Lymphocytes 1.4 103/ul Normal 1.2-3.8 [facility] Comment on above: Performed By: #### C BC ####[facility] Jmdzqghaav360[address] [place] Lymphocytes/100 leukocytes 15.2 % Critically low 20.5-60.0 [facility] Comment on above: Performed By: #### C BC ####[facility] [address] [place] [id number] MANUAL DIFF REQ NO Normal [facility] Comment on above: Performed By: #### C BC ####[facility] Nxwcarlb[address] [place] [id number] MCH 29.8 pg Normal 26.7-34.0 [facility] Comment on above: Performed By: #### C BC ####[facility] Pqycpbix[address] [place] [id number] MCHC mass conc (RBC) 33.1 g/dL Normal 29.9-35.2 [facility] Comment on above: Performed By: #### C BC ####[facility] [address] [place] [address] J[place]anna MCV 90.0 fL Normal 81.0-99.0 [facility] Comment on above: Performed By: #### C BC ####[facility] [address] [place] [address] [place] Monocytes 0.5 103/ul Normal 0.3-0.8 [facility] Comment on above: Performed By: #### C BC ####[facility] [address] [place] [address] [place] Monocytes/100 leukocytes 5.7 % Normal 1.7-12.0 [facility] Comment on above: Performed By: #### C BC ####[facility] [address] [place] [address] [place] Neutrophils 7.2 103/ul Critically high 1.4-6.5 [facility] Comment on above: Performed By: #### C BC ####[facility] [address] [place] [address] [place] Neutrophils/100 WBC Auto (Bld) 76.4 % Critically high 43.0-75.0 [facility] Comment on above: Performed By: #### C BC ####[facility] [address] [place] [address] [place] Platelet mean volume (PMV) 10.1 fL Normal 9.5-13.5 [facility] Comment on above: Performed By: #### C BC ####[facility] [address] [place] [address] [place] Platelets 248 103/ul Normal 150-450 [facility] Comment on above: Performed By: #### C BC ####[facility] [address] [place] [address] [place] WBC (Leukocytes) 9.5 103/ul Normal 4.0-11.0 [facility] Comment on above: Performed By: #### C BC ####[facility] [address] [place] [address] [place] HIV 1 AND 2 ABon 02-25-2017 HIV 1 AND 2 AB Negative Normal NEGATIVE [facility] Comment on above: Performed By: #### P REGQNT ####[facility] [address] [place] [address] [place] PREG QUANT HCGon 02-25-2017 HCG Qn SEE BELOW Normal [facility] Comment on above: Result Comment: 5-50 0-1 WEEK 40-300 1-2 WEEKS 100-1,000 2-3 WEEKS 500-6,000 3-4 WEEKS 5,000-200,000 1-2 MONTHS 10,000-100,000 2-3 MONTHS 3,000-50,000 2ND TRIMESTER 1,000-50,000 3RD TRIMESTER Performed By: #### P REGQNT ####[facility] [address] [place] [address] [place] HCG QUANT 28441.00 mIU/mL Normal [facility] Comment on above: Performed By: #### P REGQNT ####[facility] [address] [place] [address] [place] RUBELLA AB IGGon 02-25-2017 RUB HEADER SEE BELOW Normal [facility] Comment on above: Result Comment: or=1 5.0 IU/mL POSITIVE WHO considers levels >or= 10.0 IU/mL to be positive immune status Performed By: #### P REGQNT ####[facility] Iq[address]pt[address] [place], [place] [address]ZxcyjvAlberto Nugent RUB IGG 6.8 IU/mL Normal [facility] Comment on above: Performed By: #### P REGQNT ####[facility] Tas[address]56 [place], [place] [address]UqphxkAlberto Nugent US PREG DATING >14WEEKSon US PREG DATING >14WEEKS [address] [place] [address] Patient: LINNEA CAPELLAN Exam Date: 02/19/2017DOB: 1995 Gender:F : CHAVEZ BACA . Admission #: [id number] : Order #: [id number] HERE TO VIEW EXAM RADIOLOGY REPORT PROCEDURE: [...] M.D. on 02/19/2017 at 09:51 Normal [facility] CULTURE URINEon 02-14-2017 CULTURE URINE Culture Observations : final, scanned results to follow in hpf Normal [facility] Comment on above: Performed By: #### C XUR ####[facility] Akmjahegyb4[address] [place] UA RANDOM W/MICROSCOPICon AMORPHOUS CRYSTALS FEW Normal [facility] Comment on above: Performed By: #### U AMIC ####[facility] Rdrcuqmnfy0817 [address] [place] Bilirubin (total) Negative Normal NEGATIVE [facility] Comment on above: Performed By: #### U AMIC ####[facility] Uekncaecao3283 [address] [place] BLOOD Negative Normal NEGATIVE [facility] Comment on above: Performed By: #### U AMIC ####[facility] Hnuidwwfgo0174 [address] [place] CAST NONE SEEN Normal NONE SEEN [facility] Comment on above: Performed By: #### U AMIC ####[facility] Mscdkzwhyg[address]43 [address] [place] Erythrocytes (RBC) 0-2 Normal 0-2 [facility] Comment on above: Performed By: #### U AMIC ####[facility] Fljmvmvfum7556 [address] [place] Glucose mass conc Negative Normal NEGATIVE [facility] Comment on above: Performed By: #### U AMIC ####[facility] Ffwjcmnaaj3858 [address] [place] MUCOUS SMALL Normal NONE SEEN [facility] Comment on above: Performed By: #### U AMIC ####[facility] Awxywaaktv4893 [place] [id number] pH of blood 7.5 [pH] Normal 5-9 [facility] Comment on above: Performed By: #### U AMIC ####[facility] Zuqtcvwecm1725 [place] [id number] Protein Negative Normal [facility] Comment on above: Performed By: #### U AMIC ####[facility] Kskchbzanh[address] [place] [id number] SPEC GRAVITY 1.020 Normal 1.005-<=1.025 [facility] Comment on above: Performed By: #### U AMIC ####[facility] Zsogxdlxxk[address] [place] Urine, bacteria in sediment TRACE Normal NONE SEEN [facility] Comment on above: Performed By: #### U AMIC ####[facility] Nvkgellhte56[address] [place] Urine, clarity SL CLOUDY Normal [facility] Comment on above: Performed By: #### U AMIC ####[facility] W[address] [place] [id number] Urine, color LT. YELLOW Normal YELLOW [facility] Comment on above: Performed By: #### U AMIC ####[facility] Hwqnhqoduc2396 [place] [id number] Urine, crystals in sediment SEEN Normal NONE SEEN [facility] Comment on above: Performed By: #### U AMIC ####[facility] Zussguinxy9440 [place] [id number] Urine, epithelial cells in sediment FEW Normal [facility] Comment on above: Performed By: #### U AMIC ####[facility] Q[address]ucjpijs2599 [place] [id number] Urine, ketones presence Negative Normal NEGATIVE [facility] Comment on above: Performed By: #### U AMIC ####[facility] [address]tfjezk[address] [place] [id number] Urine, nitrite presence Negative Normal NEGATIVE [facility] Comment on above: Performed By: #### U AMIC ####[facility] Teoqbzprtd44[address] [place], [place] [address]Izmygj Karen Urine, urobilinogen 0.2 {Rony'U}/dL Normal [facility] Comment on above: Performed By: #### U AMIC ####[facility] Dpx[address]ughx8895 [place], [place] [address]Ugbfze [place]anna WBC (Leukocytes) 0-2 Normal NONE SEEN [facility] Comment on above: Performed By: #### U AMIC ####[facility] Pvyj[address]eguh7423 [place], [place] [address]Emeoip [place]anna WBC (Leukocytes) Negative Normal NEGATIVE [facility] Comment on above: Performed By: #### U AMIC ####[facility] T[address]ls[address]lwb64[address] [place], [place] [address]Rxzewh J[place]anna ABO AND RH TYPEon 02-06-2017 ABO AND RH TYPE Positive Normal [facility] Comment on above: Performed By: #### A ALYCIA ####[facility] [address]rm[address]mb[address] [place], [place] [address]Idmexw [place]anna PREG QUANT HCGon 02-06-2017 HCG Qn SEE BELOW Normal [facility] Comment on above: Result Comment: 5-50 0-1 WEEK 40-300 1-2 WEEKS 100-1,000 2-3 WEEKS 500-6,000 3-4 WEEKS 5,000-200,000 1-2 MONTHS 10,000-100,000 2-3 MONTHS 3,000-50,000 2ND TRIMESTER 1,000-50,000 3RD TRIMESTER Performed By: #### P REGQNT ####[facility] Zvoyvnkhnn3772 [place], [place] [address]Bqakgw J[place]anna HCG QUANT 76560.00 mIU/mL Normal [facility] Comment on above: Performed By: #### P REGQNT ####[facility] Aqcmwfboya1648 [place], [place] [address]Mxwqdr Jovanna Encounters Encounter Date Encounter Type Care Provider Facility Start: 01-28-2023 End: 01-28-2023 ambulatory SONAM DEEPAK Not Available Start: 01-13-2023 End: 01-13-2023 ambulatory SONAM SOTELO Not Available Start: 12-30-2022 End: 12-30-2022 ambulatory ISAIAS LUX Not Available Start: 09-15-2021 End: 09-15-2021 ambulatory Oly Marie Other [facility] Other Start: 09-15-2021 Nursing evaluation o f patient and report Oly Marie [facility] Start: 07-28-2017 End: 07-28-2017 [...] [employer] Payers Date Payer Category Payer Unknown [id number] 1995 Unknown [id number] 1995 Unknown [id number] 1995 Unknown [id number] 1961 Private Health Insurance [id number] Social History Date Type Detail Facility Sex Assigned At [facility] Other Evaluation note 09-15-2021 Note Date & Type Note Facility 09-15-2021 Evaluation note Encounter Date Diagnosis Assessment Notes Sep, Cough, unspecified type (ICD-10 - R05.9) [facility] Other Summary Purpose Family History No Family History Records FoundNo Family History Records Found Advance Directives No Advanced Directives Records FoundNo Advanced Directives Records Found Additional Source Comments INFORMATION SOURCE (unrecogn ized section and content) DATE CREATED AUTHOR 08/11/2017 [facility] DATE CREATED AUTHOR AUTHOR'S SHANNON ALCARAZ 02/11/2023 [facility] EPIC FOR RECORDS PERTAINING TO PATIENTS [...] BE BASED ON THE PRIMARY CLINICAL RECORDS. [employer] provides no warranty or guarantee of the accuracy or completeness of information in this document.
== END 2023-02-13 19:49 | disposition home or self-care (01) ==
LOC: LAB 19:48
PROVIDERS: Visit Provider Physician Assistant
DX: Z34.93 Encounter for supervision of normal pregnancy, unspecified, third trimester (principal)
CPT/HCPCS: 87081; 87150; 87186

== ENCOUNTER 2023-02-26 08:27 | Outpatient (OUT) | payer OTHER, SELFPAY ==
--- NOTE | 2023-02-26 08:30 | US_ITS ---
[address] [address] Patient Name: LINNEA CAPELLAN MRN: [id number] date: 1995 Sex: F Assigned Patient Location: US Current Patient Location: US Accession/Order Number: [id number] Exam Date: 02/26/2023 08:30 Report Date: 02/26/2023 09:27 At the request of: SONAM LUGO Procedure: US OB growth EXAMINATION: US OB growth HISTORY: SIZE INCONSISTENT WITH DATES COMPARISON: No relevant comparison available. TECHNIQUE: Transabdominal sonographic examination was performed for obstetrical and evaluation. FINDINGS: Number: 1 Heart Rate: 151.0 bpm H.B. /min Amniotic Fluid Volume: 7.2 cm. Largest fluid pocket 3.3 cm position: Cephalic presentation, longitudinal lie BIOMETRY: BPD: 8.8 cm 35 weeks 4 days , 14% HC: 32.8 cm 37 weeks 2 days, 17% AC: 32.8 cm 36 weeks 5 days, 34% FL: 6.9 cm 35 weeks 4 days, 6% EFW:2911.6 grams; 6 lbs. 11 oz., 23% FL/AC: 21.1 FL/BPD: 78.6 HC/AC: 1.0 GESTATIONAL AGE: Age by EDC: 37 weeks 6 days Age by current US: 36 weeks 2 days KIP by current US: 03/24/2023 KIP by EDC: 03/13/2023 Findings relayed by the technologist to Dr. Lugo US/US OB growth IMPRESSION: Oligohydramnios, otherwise normal interval growth *Reference: [employer] Practice Guideline for the performance of Obstetric Ultrasound Examinations, November 10, 2006. Electronically authenticated by: TRESSA HERZOG Date: 02/26/2023 09:27
--- OUTSIDE RECORDS SUMMARY | 2023-02-26 08:36 | XMS_ITS | CCD ---
Author Name Unknown Address [address] [place] [address] Organization [facility] Care Team Providers Care Manager Medical Writing Name Role Phone CHAVEZ BACA Unavailable Unavailable [...] BACAA Unavailable Unavailable CHAVEZ BACA Unavailable Unavailable CANDY BACAA Unavailable Unavailable DEEPAK, SONAM Unavailable Unavailable DEEPAK, SONAM Unavailable Unavailable CARRIE HAWKINS Unavailable Unavailable MISC, DOCTOR Unavailable Unavailable DEEPAK, SONAM Unavailable Unavailable CHAVEZ BACA Unavailable Unavailable DEEPAK, SONAM Unavailable Unavailable Oly Marie Unavailable ISAIAS LUX Attending Unavailable DEEPAK, SONAM Attending Unavailable DEEPAK, SONAM Attending Unavailable ISAIAS LUX Attending Unavailable DEEPAK, SONAM [...] Facility COVID Quick Testingon 2021 Result Positive [facility] Other CBC AUTO DIFFon 07-23-2017 Basophils Auto #/vol (Bld) 0.0 103/ul Normal 0.0-0.1 [facility] Comment on above: Performed By: #### U AMI ####[facility] Jfdtdvuivg3317 [place], [place] [address]Ypgmzn [place] Basophils/100 WBC Auto (Bld) 0.2 % Normal 0.2-2.0 [facility] Comment on above: Performed By: #### U AMIC ####[facility] Lngkzmrhlf5402 [place] [id number] Eosinophils 0.0 103/ul Normal 0.0-0.7 [facility] Comment on above: Performed By: #### U AMIC ####[facility] Tgrcojnlyx8722 [place] [id number] Eosinophils/100 leukocytes 0.2 % Critically low 0.9-7.0 [facility] Comment on above: Performed By: #### U AMIC ####[facility] Rzpvmljaef0257 [place] [id number] Erythrocyte distribution width Auto Ratio (RBC) 14.3 % Normal 11.0-15.0 [facility] Comment on above: Performed By: #### U AMIC ####[facility] Dotghsdoyk[address] [place] [address] [place] Erythrocytes (RBC) 3.30 106/ul Critically low 4.20-5.40 [facility] Comment on above: Performed By: #### U AMIC ####[facility] [address] [place], [place] [address]ken [place] Hematocrit (HCT) 28.5 % Critically low 36.0-48.0 [facility] Comment on above: Performed By: #### U AMIC ####[facility] Heujwlmtzp[address] [place], [place] [address]ken [place] Hemoglobin mass conc (Bld) 9.5 g/dL Critically low 12.0-16.0 [facility] Comment on above: Performed By: #### U AMIC ####[facility] Dkjgkwrdrz8968 [place] [phone] IG # 0.07 10e3/ul Critically high 0.00-0.03 [facility] Comment on above: Performed By: #### U AMIC ####[facility] Tuwjxugopq[address] [place], [place] [address] IG % 0.5 % Normal 0.0-0.5 [facility] Comment on above: Performed By: #### U AMIC ####[facility] Nirjlspdcv4600 [place] [phone] Lymphocytes 1.1 103/ul Critically low 1.2-3.8 [facility] Comment on above: Performed By: #### U AMIC ####[facility] Xcjksounuv9893 [place] [id number] Lymphocytes/100 leukocytes 7.3 % Critically low 20.5-60.0 The [facility] Comment on above: Performed By: #### U AMIC ####[facility] Mtqasphfpy7377 [place] [phone] MANUAL DIFF REQ NO Normal [facility] Comment on above: Performed By: #### U AMIC ####[facility] Yiurlwgpln[address] [place], [place] [address] MCH 28.8 pg Normal 26.7-34.0 The [facility] Comment on above: Performed By: #### U AMIC ####[facility] Kxymioiluy7[address] [place], [place] [address] MCHC mass conc (RBC) 33.3 g/dL Normal 29.9-35.2 The [facility] Comment on above: Performed By: #### U AMIC ####[facility] Dakxfjmxxz[address] [place], [place] [address] MCV 86.4 fL Normal 81.0-99.0 The [facility] Comment on above: Performed By: #### U AMIC ####[facility] Iljsebwott0611 [place] [id number] Monocytes 0.7 103/ul Normal 0.3-0.8 The [facility] Comment on above: Performed By: #### U AMIC ####[facility] Ixzampiukr[address] [place], [place] [address] Monocytes/100 leukocytes 4.7 % Normal 1.7-12.0 The [facility] Comment on above: Performed By: #### U AMIC ####[facility] Zhcdsqxiim[address] [place], [place] [address] Neutrophils 12.8 103/ul Critically high 1.4-6.5 [facility] Comment on above: Performed By: #### U AMIC ####[facility] Ubpkrswerv7004 [place], [place] [address]Pxhxxq [place] Neutrophils/100 WBC Auto (Bld) 87.1 % Critically high 43.0-75.0 [facility] Comment on above: Performed By: #### U AMIC ####[facility] [address] [place] [address]Nhrfaw [place] Platelet mean volume (PMV) 10.0 fL Normal 9.5-13.5 The [facility] Comment on above: Performed By: #### U AMIC ####[facility] L[address]iajbhiv[address] [place], [place] [address] Platelets 171 103/ul Normal 150-450 [facility] Comment on above: Performed By: #### U AMIC ####[facility] Ybeklztuon[address] [place], [place] [address] WBC (Leukocytes) 14.7 103/ul Critically high 4.0-11.0 [facility] Comment on above: Performed By: #### U AMIC ####[facility] Npzqkyrvoq[address] [place], [place] [address]ken [place] CBC AUTO DIFFon 07-22-2017 Basophils Auto #/vol (Bld) 0.0 103/ul Normal 0.0-0.1 The [facility] Comment on above: Performed By: #### U AMIC ####[facility] Nyjwrlcoxu[address] [place] [address]rgiao [place] Basophils/100 WBC Auto (Bld) 0.2 % Normal 0.2-2.0 The [facility] Comment on above: Performed By: #### U AMIC ####[facility] F[address]st[address] [place] [address]Zrtkky [place] Eosinophils 0.1 103/ul Normal 0.0-0.7 [facility] Comment on above: Performed By: #### U AMIC ####[facility] Yjiduiwaro[address] [place] [address]Idfrbr [place] Eosinophils/100 leukocytes 0.4 % Critically low 0.9-7.0 [facility] Comment on above: Performed By: #### U AMIC ####[facility] Sqmjkevchi8324 [address] [place] Erythrocyte distribution width Auto Ratio (RBC) 14.5 % Normal 11.0-15.0 [facility] Comment on above: Performed By: #### U AMIC ####[facility] Vqnihynygn4985 [address] [place] Erythrocytes (RBC) 3.83 106/ul Critically low 4.20-5.40 [facility] Comment on above: Performed By: #### U AMIC ####[facility] Hiaorewtys[address] [place] [address] [place] Hematocrit (HCT) 33.0 % Critically low 36.0-48.0 [facility] Comment on above: Performed By: #### U AMIC ####[facility] Ozcwfvjuxb[address] [place] [address] [place] Hemoglobin mass conc (Bld) 11.0 g/dL Critically low 12.0-16.0 [facility] Comment on above: Performed By: #### U AMIC ####[facility] X[address]xtqd[address] [place] [address] J[place] IG # 0.06 10e3/ul Critically high 0.00-0.03 [facility] Comment on above: Performed By: #### U AMIC ####[facility] Ckxqnoeyjc2216 [address] [place] IG % 0.4 % Normal 0.0-0.5 The [facility] Comment on above: Performed By: #### U AMIC ####[facility] [address]wuvla[address] [place], [place] [address] [place] Lymphocytes 1.1 103/ul Critically low 1.2-3.8 [facility] Comment on above: Performed By: #### U AMIC ####[facility] [address]ek[address]obf[address] [place], [place] [address] [place] Lymphocytes/100 leukocytes 7.0 % Critically low 20.5-60.0 [facility] Comment on above: Performed By: #### U AMIC ####[facility] Xfygkceugm1446 [place] [phone] MANUAL DIFF REQ NO Normal [facility] Comment on above: Performed By: #### U AMIC ####[facility] Khuwgdyths6430 [place] [phone] MCH 28.7 pg Normal 26.7-34.0 [facility] Comment on above: Performed By: #### U AMIC ####[facility] Rmqpdlmcfm9541 [place] [phone] MCHC mass conc (RBC) 33.3 g/dL Normal 29.9-35.2 [facility] Comment on above: Performed By: #### U AMIC ####[facility] Gsehwjblow7122 [place] [phone] MCV 86.2 fL Normal 81.0-99.0 [facility] Comment on above: Performed By: #### U AMIC ####[facility] Ksfmzebteo5828 [place] [phone] Monocytes 0.8 103/ul Normal 0.3-0.8 [facility] Comment on above: Performed By: #### U AMIC ####[facility] Pbevrixfow7543 [place] [phone] Monocytes/100 leukocytes 4.9 % Normal 1.7-12.0 [facility] Comment on above: Performed By: #### U AMIC ####[facility] Jnvpgxvahn2669 [place] [phone] Neutrophils 14.0 103/ul Critically high 1.4-6.5 [facility] Comment on above: Performed By: #### U AMIC ####[facility] Xbantvhdrv2151 [place] [phone] Neutrophils/100 WBC Auto (Bld) 87.1 % Critically high 43.0-75.0 [facility] Comment on above: Performed By: #### U AMIC ####[facility] Hnjdodpgco1414 [address] [place] Platelet mean volume (PMV) 11.5 fL Normal 9.5-13.5 [facility] Comment on above: Performed By: #### U AMIC ####[facility] Iyguatpyiu7020 [place] [address] [place] Platelets 204 103/ul Normal 150-450 The [facility] Comment on above: Performed By: #### U AMIC ####[facility] Faalkadeza8661 [address] [place] WBC (Leukocytes) 16.0 103/ul Critically high 4.0-11.0 Th e [facility] Comment on above: Performed By: #### U AMIC ####[facility] Sgpfhlsghv6668 [address] [place] DRUG SCREEN RAPID (URINE)on 07-22-2017 AMP Negative Normal NEGATIVE [facility] Comment on above: Performed By: #### U AMIC ####[facility] Zvgqrrqdkk1133 [address] [place] BAR Negative Normal NEGATIVE The [facility] Comment on above: Performed By: #### U AMIC ####[facility] Ylqsnabndu1570 [address] [place] BUP Negative Normal NEGATIVE The [facility] Comment on above: Performed By: #### U AMIC ####[facility] Zbvvgjqfpq6806 [address] [place] BZO Negative Normal NEGATIVE The [facility] Comment on above: Performed By: #### U AMIC ####[facility] Aoddpxbald8120 [address] [place] KENNETH Negative Normal NEGATIVE The [facility] Comment on above: Performed By: #### U AMIC ####[facility] Bbrpkogjmv6739 [address] [place] CUT-OFFS SEE BELOW Normal The [facility] Comment on above: Result Comment: AMP (Amphetamine): [...] 300 ng/mL Performed By: #### U AMIC ####[facility] [address] [place] [address] DRUG CUT HEADER DRUG CLASS TEST SYSTEM CUT-OFF CONCENTRATIONS ARE FOLLOWS: Normal [facility] Comment on above: Performed By: #### U AMIC ####[facility] [address]hwjuwwx[address] [place] [address] mAMP Negative Normal NEGATIVE [facility] Comment on above: Performed By: #### U AMIC ####[facility] [address]rfhyx[address] [place] [address] MTD Negative Normal NEGATIVE [facility] Comment on above: Performed By: #### U AMIC ####[facility] E[address]boqqjlh[address] [place] [address] OPI Negative Normal NEGATIVE The [facility] Comment on above: Performed By: #### U AMIC ####[facility] Az[address]iwux[address] [place] [address] OXY Negative Normal NEGATIVE [facility] Comment on above: Performed By: #### U AMIC ####[facility] [address]ofx[address]rbx[address] [place] [address] PCP Negative Normal NEGATIVE [facility] Comment on above: Performed By: #### U AMIC ####[facility] T[address]vlese[address] [place] [address] PPX Negative Normal NEGATIVE [facility] Comment on above: Performed By: #### U AMIC ####[facility] Uvqojhmvwm9415 [place] [phone] TCA Negative Normal NEGATIVE [facility] Comment on above: Performed By: #### U AMIC ####[facility] Z[address]fznpp[address] [place], [place] [address] [place] THC Negative Normal NEGATIVE [facility] Comment on above: Performed By: #### U AMIC ####[facility] [address]xbof[address] [place] [address] [place] CHLAMYDIA/GONOCOCCUS LOR W/C ONF. (SWAB/Uon 06-28-2017 Chlamydia Trach LOR Negative Normal Negative [facility] Comment on above: Performed By: #### U AMIC ####[facility] [address]la[address]of[address] [place] [address] [place] N. Gonorrhoeae LOR Negative Normal Negative [facility] Comment on above: Performed By: #### U AMIC ####[facility] [address]daqbk[address] [place] [address] [place] CBC AUTO DIFFon 06-27-2017 Basophils Auto #/vol (Bld) 0.0 103/ul Normal 0.0-0.1 [facility] Comment on above: Performed By: #### U AMIC ####[facility] [address]qthwxztii[address] [place] [address] [place] Basophils/100 WBC Auto (Bld) 0.2 % Normal 0.2-2.0 The [facility] Comment on above: Performed By: #### U AMIC ####[facility] [address]qspvlnmsw[address] [place] [address] [place] Eosinophils 0.1 103/ul Normal 0.0-0.7 The [facility] Comment on above: Performed By: #### U AMIC ####[facility] Y[address]vwdttzl[address] [place] [address] [place] Eosinophils/100 leukocytes 1.2 % Normal 0.9-7.0 The [facility] Comment on above: Performed By: #### U AMIC ####[facility] Lbhqzojhzu6749 [address] [place] Erythrocyte distribution width Auto Ratio (RBC) 12.9 % Normal 11.0-15.0 [facility] Comment on above: Performed By: #### U AMIC ####[facility] Izdrosbbbg6314 [place] [id number] Erythrocytes (RBC) 3.47 106/ul Critically low 4.20-5.40 [facility] Comment on above: Performed By: #### U AMIC ####[facility] Eejtjkqtfv2609 [place] [phone] Hematocrit (HCT) 30.6 % Critically low 36.0-48.0 [facility] Comment on above: Performed By: #### U AMIC ####[facility] Vumqolfjll5009 [address] [place] Hemoglobin mass conc (Bld) 10.1 g/dL Critically low 12.0-16.0 [facility] Comment on above: Performed By: #### U AMIC ####[facility] Lxfcpbpswu6682 [place] [address] [place] IG # 0.03 10e3/ul Normal 0.00-0.03 [facility] Comment on above: Performed By: #### U AMIC ####[facility] Rdcdcfkkma6453 [address] [place] IG % 0.3 % Normal 0.0-0.5 [facility] Comment on above: Performed By: #### U AMIC ####[facility] Dfaugrnaww7625 [address] [place] Lymphocytes 1.6 103/ul Normal 1.2-3.8 The [facility] Comment on above: Performed By: #### U AMIC ####[facility] Hhuapbcszh5741 [address] [place] Lymphocytes/100 leukocytes 17.3 % Critically low 20.5-60.0 [facility] Comment on above: Performed By: #### U AMIC ####[facility] Iirhrnusry4606 [address] [place] MANUAL DIFF REQ NO Normal [facility] Comment on above: Performed By: #### U AMIC ####[facility] Fufglampwu2945 [place] [phone] MCH 29.1 pg Normal 26.7-34.0 [facility] Comment on above: Performed By: #### U AMIC ####[facility] Shwdbuwjrt3071 [address] [place] MCHC mass conc (RBC) 33.0 g/dL Normal 29.9-35.2 [facility] Comment on above: Performed By: #### U AMIC ####[facility] Srnyymmnfq3277 [address] [place] MCV 88.2 fL Normal 81.0-99.0 [facility] Comment on above: Performed By: #### U AMIC ####[facility] Tkegpgcqri7791 [address] [place] Monocytes 0.7 103/ul Normal 0.3-0.8 [facility] Comment on above: Performed By: #### U AMIC ####[facility] Jcmbetjrrh9953 [address] [place] Monocytes/100 leukocytes 7.7 % Normal 1.7-12.0 [facility] Comment on above: Performed By: #### U AMIC ####[facility] Nhwsweketx6960 [address] [place] Neutrophils 6.6 103/ul Critically high 1.4-6.5 [facility] Comment on above: Performed By: #### U AMIC ####[facility] Zfbnyfyazh0176 [address] [place] Neutrophils/100 WBC Auto (Bld) 73.3 % Normal 43.0-75.0 The [facility] Comment on above: Performed By: #### U AMIC ####[facility] Rwwiojcevr6590 [place] [address] [place] Platelet mean volume (PMV) 10.4 fL Normal 9.5-13.5 The [facility] Comment on above: Performed By: #### U AMIC ####[facility] Oyhcqndtge4650 [place] [id number] Platelets 235 103/ul Normal 150-450 The [facility] Comment on above: Performed By: #### U AMIC ####[facility] Ycqdpqunvz4604 [place] [phone] WBC (Leukocytes) 9.1 103/ul Normal 4.0-11.0 The [facility] Comment on above: Performed By: #### U AMIC ####[facility] Lmrbwldcqz[address] [place] [phone] [place] GROUP B STREPTon 06-25-2017 GBS Performed by [facility] , final report to follow Normal NEG FOR GBS The [facility] Comment on above: Performed By: #### U AMIC ####[facility] [address] [place] [address] [place] CBC AUTO DIFFon 05-16-2017 Basophils Auto #/vol (Bld) 0.0 103/ul Normal 0.0-0.1 The [facility] Comment on above: Performed By: #### P REGQNT ####[facility] [address]cqjuyvu[address] [place] [address] [place] Basophils/100 WBC Auto (Bld) 0.2 % Normal 0.2-2.0 The [facility] Comment on above: Performed By: #### P REGQNT ####[facility] [address]ksosfm[address] [place] [address] [place] Eosinophils 0.1 103/ul Normal 0.0-0.7 The [facility] Comment on above: Performed By: #### P REGQNT ####[facility] [address]zdunyud[address] [place] [address] [place] Eosinophils/100 leukocytes 0.7 % Critically low 0.9-7.0 The [facility] Comment on above: Performed By: #### P REGQNT ####[facility] [address]mmtos[address] [place] [address] [place] Erythrocyte distribution width Auto Ratio (RBC) 12.6 % Normal 11.0-15.0 [facility] Comment on above: Performed By: #### P REGQNT ####[facility] [facility] Uunrdvequg3168 [address] J[place]anna Erythrocytes (RBC) 3.42 106/ul Critically low 4.20-5.40 T [facility] Comment on above: Performed By: #### P REGQNT ####[facility] [address] [place] [address] Jovanna Hematocrit (HCT) 30.4 % Critically low 36.0-48.0 [facility] Comment on above: Performed By: #### P REGQNT ####[facility] Vovrgzmkfe[address] [place] [address] Jovanna Hemoglobin mass conc (Bld) 10.3 g/dL Critically low 12.0-16.0 [facility] Comment on above: Performed By: #### P REGQNT ####[facility] [address]afoaqey[address] [place] [address] Jovanna IG # 0.08 10e3/ul Critically high 0.00-0.03 [facility] Comment on above: Performed By: #### P REGQNT ####[facility] Iglmktgegn[address] [place] [address] oJvanna IG % 0.6 % Critically high 0.0-0.5 [facility] Comment on above: Performed By: #### P REGQNT ####[facility] Njnsaxx[address] [place] [address] Jovanna Lymphocytes 1.2 103/ul Normal 1.2-3.8 [facility] Comment on above: Performed By: #### P REGQNT ####[facility] [address]qyhny[address] [place] [address] Jovanna Lymphocytes/100 leukocytes 9.3 % Critically low 20.5-60.0 [facility] Comment on above: Performed By: #### P REGQNT ####[facility] Cotjcconzs[address] [place] [address] Jovanna MANUAL DIFF REQ NO Normal [facility] Comment on above: Performed By: #### P REGQNT ####[facility] Nzelesznrv2349 [place], [place] [address]Loajhf Jovanna MCH 30.1 pg Normal 26.7-34.0 [facility] Comment on above: Performed By: #### P REGQNT ####[facility] Ptknpnltlq4297 [place], [place] [address]Lxgslm Jovanna MCHC mass conc (RBC) 33.9 g/dL Normal 29.9-35.2 [facility] Comment on above: Performed By: #### P REGQNT ####[facility] Itdqkusxbz5437 [place] [id number] Jovanna MCV 88.9 fL Normal 81.0-99.0 [facility] Comment on above: Performed By: #### P REGQNT ####[facility] Eezp[address]wcn[address] [place], [place] [address]Gerken Jovanna Monocytes 0.7 103/ul Normal 0.3-0.8 [facility] Comment on above: Performed By: #### P REGQNT ####[facility] Dpkencosvo6605 [place] [address]Gerken Jovanna Monocytes/100 leukocytes 5.3 % Normal 1.7-12.0 [facility] Comment on above: Performed By: #### P REGQNT ####[facility] Aijhsaonif8392 [place] [address]Gerken Jovanna Neutrophils 10.5 103/ul Critically high 1.4-6.5 [facility] Comment on above: Performed By: #### P REGQNT ####[facility] Iuxyxhhkiz7324 [place], [place] [address]Babmbi Jovanna Neutrophils/100 WBC Auto (Bld) 83.9 % Critically high 43.0-75.0 The [facility] Comment on above: Performed By: #### P REGQNT ####[facility] Ouxfluirqx4180 [place], [place] [address]Hmbggp Jovanna Platelet mean volume (PMV) 9.0 fL Critically low 9.5-13.5 The [facility] Comment on above: Performed By: #### P REGQNT ####[facility] Ipppyydgvf2349 [place], [place] [address]Hpxqux Karen Platelets 233 103/ul Normal 150-450 [facility] Comment on above: Performed By: #### P REGQNT ####[facility] Bofjgjsemy0483 [place], [place] [address]Zlbwlw Karen WBC (Leukocytes) 12.6 103/ul Critically high 4.0-11.[address] [facility] Comment on above: Performed By: #### P REGQNT ####[facility] Ioicseoeuk3384 [place], [place] [address]GbbnqtAlberot Nugent GLUCOSE - 1HRon 05-16-2017 Glucose mass conc 112 mg/dL Critically high 74-[address] [facility] Comment on above: Performed By: #### P REGQNT ####[facility] Rmnsqsdlfs2817 [place], [place] [address]HrfzxfAlberto Nugent US PREG INCOMPLETE ANATOMYon 04-25-2017 US PREG INCOMPLETE ANATOMY [address] [place] [address] Patient: LINNEA CAPELLAN Exam Date: 04/25/2017DOB: 1995 Gender:F : CHAVEZ BACA . Admission #: [id number] : Order #: [id number] HERE TO VIEW EXAM RADIOLOGY REPORT PROCEDURE: [...] M.D. on 04/25/2017 at 11:42 Normal The [facility] US PREG ANATOMY SINGLEon US PREG ANATOMY SINGLE [address] [place] [address] Patient: LINNEA CAPELLAN Exam Date: 03/10/2017DOB: 1995 Gender:F : CHAVEZ BACA . Admission #: [id number] : Order #: [id number] HERE TO VIEW EXAM RADIOLOGY REPORT PROCEDURE: [...] on 03/10/2017 at 12:18 Normal [facility] PAP ACOG PANEL 4: 21 to 29on 03-03-2017 Age Gdln ACOG Testing Normal [facility] Comment on above: Performed By: #### P REGQNT ####[facility] Ctzhugmetg1879 [address] Chlamydia, Nuc. Acid Amp Negative Normal Negative [facility] Comment on above: Result Comment: Perf ormed at: =G Performed By: #### P REGQNT ####[facility] [address]joy[address] [place] [address] DIAGNOSIS: Comment Normal [facility] Comment on above: Result Comment: NEGA TIVE FOR INTRAEPITHELIAL LESION AND MALIGNANCY.Performed at: WB Performed By: #### P REGQNT ####[facility] Dlmyobucba6[address] Gonococcus, Nuc. Acid Amp Negative Normal Negative [facility] Comment on above: Result Comment: Perf ormed at: =G Performed By: #### P REGQNT ####[facility] [address]wpt[address] [place] [address] Methodology: Comment Normal [facility] Comment on above: Result Comment: This liquid based ThinPrep(R) pap test was screened with theuse of an image guided system.Performed at: WB Performed By: #### P REGQNT ####[facility] Clpwmikfbq[address] [place] [address] Note: Comment Normal [facility] Comment on above: Result Comment: The Pap smear is a screening test designed to aid in the detection ofpremalignant and malignant conditions of the uterine cervix. It is not adiagnostic procedure and should not be used as the sole means of detectingcervical cancer. Both false-positive and false-negative reports do occur. .Performed at: WB Performed By: #### P REGQNT ####[facility] I[address]ou[address]jfs[address] [place] [address] Performed by: Comment Normal [facility] Comment on above: Result Comment: Florentin Collins, Energy Efficient Site Manager (ASCP)Performed at: WB Performed By: #### P REGQNT ####[facility] [address]rs[address] [place] [address] Reflex Criteria: Comment Normal [facility] Comment on above: Result Comment: The HPV DNA reflex criteria were not met with this specimen resulttherefore, no HPV testing was performed. .Performed at: WB Performed By: #### P REGQNT ####[facility] [address] [place] [address] Specimen adequacy: Comment Normal [facility] Comment on above: Result Comment: Sati sfactory for evaluation. Endocervical and/or squamous metaplasticcells (endocervical component) are present.Performed at: WB Performed By: #### P REGQNT ####[facility] Wymefdedeq[address] [place] [address] Trich vag by LOR Negative Normal Negative [facility] Comment on above: Result Comment: Perf ormed at: =G Performed By: #### P REGQNT ####[facility] F[address]nzcroey[address] [place] [address] . . Normal [facility] Comment on above: Result Comment: Perf ormed at: WB Performed By: #### P REGQNT ####[facility] Zkrdncoxsi[address] [place] [address] HEP B SURFACE AGon 8 BSA (Body Surface Area) Negative Normal Negative [facility] Comment on above: Performed By: #### H EPBSUR ####[facility] X[address]spqd[address] [place] [address] HEPATITIIS C VIRUS ANTIBODYo n 02-27-2017 Hep C Virus Ab <0.1 Normal 0.0-0.9 [facility] Comment on above: Result Comment: Nega tive: < 0.8 Indeterminate: 0.8 - 0.9 Positive: > 0.9 . The CDC recommends that a positive HCV antibody result be followed up with a HCV Nucleic Acid Amplification test (071633). Performed By: #### H CV ####[facility] [address]ks[address]jhp[address] [place] [address] Jovanna HGB(ELECTP) FRACTION PROFILE on 02-27-2017 Hemoglobin mass conc (Bld) 3.0 % Normal 1.8-3.2 The [facility] Comment on above: Result Comment: Pl ease note reference interval change Performed By: #### P REGQNT ####[address] [place] Hemoglobin mass conc (Bld) 0.0 % Normal 0.0 [facility] Comment on above: Performed By: #### P REGQNT ####[facility] Vkybbhfcmy[address] [place] [address] Jovanna Hemoglobin mass conc (Bld) Negative Normal Negative The [facility] Comment on above: Performed By: #### P REGQNT ####[facility] Ccbyrdzsdx[address] [place] [address] Jovanna Hemoglobin mass conc (Bld) 0.5 % Normal 0.0-2.0 The [facility] Comment on above: Result Comment: Pl ease note reference interval change Performed By: #### P REGQNT ####[facility] [address]qvnhld[address] [place] [address] Jovanna Hemoglobin mass conc (Bld) 96.5 % Normal 96.4-98.8 The [facility] Comment on above: Result Comment: Pl ease note reference interval change Performed By: #### P REGQNT ####[facility] Natjsbrbrq[address] [place] [address] Jovanna Hemoglobin mass conc (Bld) Normal The [facility] Comment on above: Performed By: #### P REGQNT ####[facility] Cywbafvsgd2146 [address] Jovanna Interpretation Comment Normal [facility] Comment on above: Result Comment: Norm al adult hemoglobin present. Performed By: #### P REGQNT ####[facility] [address]wmja[address] [place] [address] Jovanna RPR QUANTon 02-27-2017 Rapid Plasma Reagin, Quant Non Reactive Normal NonRea<1:1 The [facility] Comment on above: Performed By: #### P REGQNT ####[facility] [address]wca[address] [place] [address] Jovanna VARICELLA IGG ABon 8 Varicella Zoster IgG <135 Critically low Immune >165 The [facility] Comment on above: Result Comment: Nega tive <135 Equivocal 135 - 165 Positive >165 A positive result generally indicates exposure to the pathogen or administration of specific immunoglobulins, but it is not indication of active infection or stage of disease. Performed By: #### P REGQNT ####[facility] Pinsgqubgv[address] [place] [address] Jovanna TYPE AND SCREENon 02-26-2017 TYPE AND SCREEN Negative Normal [facility] Comment on above: Performed By: #### T NS ####[facility] Krtoeepjkk[address] [place] [address] Jovanna CBC AUTO DIFFon 02-25-2017 Basophils Auto #/vol (Bld) 0.0 103/ul Normal 0.0-0.1 The [facility] Comment on above: Performed By: #### C BC ####[facility] [address]pymxogo[address] [place] [address] Jovanna Basophils/100 WBC Auto (Bld) 0.3 % Normal 0.2-2.0 The [facility] Comment on above: Performed By: #### C BC ####[facility] [address]rafsifbd[address] [place] [address] Jovanna Eosinophils 0.1 103/ul Normal 0.0-0.7 The [facility] Comment on above: Performed By: #### C BC ####[facility] Isisrhvtan[address] [place], [place] [address] Jovanna Eosinophils/100 leukocytes 1.2 % Normal 0.9-7.0 [facility] Comment on above: Performed By: #### C BC ####[facility] Yplcwzjwnr0442 [address] [place]anna Erythrocyte distribution width Auto Ratio (RBC) 13.6 % Normal 11.0-15.0 [facility] Comment on above: Performed By: #### C BC ####[facility] Uzmyozqqsk8394 [address] [place]anna Erythrocytes (RBC) 3.59 106/ul Critically low 4.20-5.40 [facility] Comment on above: Performed By: #### C BC ####[facility] Jzywsoijmd[address] [place] [address] Jovanna Hematocrit (HCT) 32.3 % Critically low 36.0-48.0 [facility] Comment on above: Performed By: #### C BC ####[facility] Vmweegubsw[address] [place] [address] Jovanna Hemoglobin mass conc (Bld) 10.7 g/dL Critically low 12.0-16.0 The [facility] Comment on above: Performed By: #### C BC ####[facility] [address] [place] [address] Jovanna IG # 0.11 10e3/ul Critically high 0.00-0.03 [facility] Comment on above: Performed By: #### C BC ####[facility] Fhybybvdjg7584 [address] Jovanna IG % 1.2 % Critically high 0.0-0.5 [facility] Comment on above: Performed By: #### C BC ####[facility] [address]xshc[address] [place] [address] Jovanna Lymphocytes 1.4 103/ul Normal 1.2-3.8 The [facility] Comment on above: Performed By: #### C BC ####[facility] Uivotbbgpz[address] [place] [address] Jovanna Lymphocytes/100 leukocytes 15.2 % Critically low 20.5-60.0 The [facility] Comment on above: Performed By: #### C BC ####[facility] Omukgmmodh4871 [place] [address]Gerken Jovanna MANUAL DIFF REQ NO Normal [facility] Comment on above: Performed By: #### C BC ####[facility] Rhrtknowyz2347 [place] [address]Gerken Jovanna MCH 29.8 pg Normal 26.7-34.0 The [facility] Comment on above: Performed By: #### C BC ####[facility] Nhkbyhjjkj5712 [place] [address]Gerken Jovanna MCHC mass conc (RBC) 33.1 g/dL Normal 29.9-35.2 The [facility] Comment on above: Performed By: #### C BC ####[facility] [address]mtnwg[address] [place], [place] [address]Gerken Jovanna MCV 90.0 fL Normal 81.0-99.0 The [facility] Comment on above: Performed By: #### C BC ####[facility] Rslegkzhog5533 [place] [address]Gerken Jovanna Monocytes 0.5 103/ul Normal 0.3-0.8 The [facility] Comment on above: Performed By: #### C BC ####[facility] Abbzxwirea1178 [address] J[place]anna Monocytes/100 leukocytes 5.7 % Normal 1.7-12.0 The [facility] Comment on above: Performed By: #### C BC ####[facility] Nsztuxlpsq4574 [place], [place] [address]Ordycx Jovanna Neutrophils 7.2 103/ul Critically high 1.4-6.5 The [facility] Comment on above: Performed By: #### C BC ####[facility] Zmbujwuqxu8399 [place] [address]Gerken Jovanna Neutrophils/100 WBC Auto (Bld) 76.4 % Critically high 43.0-75.0 The [facility] Comment on above: Performed By: #### C BC ####[facility] Rxdrpfzhto0722 [place], [place] [address]BzcfemAlberto Nugent Platelet mean volume (PMV) 10.1 fL Normal 9.5-13.5 The [facility] Comment on above: Performed By: #### C BC ####[facility] Reflgepoij0743 [place], [place] [address]DfzbceAlberto Nugent Platelets 248 103/ul Normal 150-450 The [facility] Comment on above: Performed By: #### C BC ####[facility] Fmsnaulggx5643 [place], [place] [address]KkvpblAlberto Nugent WBC (Leukocytes) 9.5 103/ul Normal 4.0-11.0 The [facility] Comment on above: Performed By: #### C BC ####[facility] [address] [place] [address]AcpcuiAlberto Nugent HIV 1 AND 2 ABon 02-25-2017 HIV 1 AND 2 AB Negative Normal NEGATIVE [facility] Comment on above: Performed By: #### P REGQNT ####[facility] [address] [place] [address]FbpflpAlberto Nugent PREG QUANT HCGon 02-25-2017 HCG Qn SEE BELOW Normal The [facility] Comment on above: Result Comment: 5-50 0-1 WEEK 40-300 1-2 WEEKS 100-1,000 2-3 WEEKS 500-6,000 3-4 WEEKS 5,000-200,000 1-2 MONTHS 10,000-100,000 2-3 MONTHS 3,000-50,000 2ND TRIMESTER 1,000-50,000 3RD TRIMESTER Performed By: #### P REGQNT ####[facility] Afenrrpksd5452 [place], [place] [address]Osftwz Jovanna HCG QUANT 45096.00 mIU/mL Normal [facility] Comment on above: Performed By: #### P REGQNT ####[facility] [address] [place] [address]DtpjkqAlberto Nugent RUBELLA AB IGGon 02-25-2017 RUB HEADER SEE BELOW Normal [facility] Comment on above: Result Comment: or=1 5.0 IU/mL POSITIVE WHO considers levels >or= 10.0 IU/mL to be positive immune status Performed By: #### P REGQNT ####[facility] Dzhcjggdkg2818 [place], [place] [address]ClcgpiAlberto Nugent RUB IGG 6.8 IU/mL Normal The [facility] Comment on above: Performed By: #### P REGQNT ####[facility] Rjxgtjfzey7297 [place], [place] [address]NccanaAlberto Nugent US PREG DATING >14WEEKSon US PREG DATING >14WEEKS [address] [place] [address] Patient: LINNEA CAPELLAN Exam Date: 02/19/2017DOB: 1995 Gender:F : CHAVEZ NoemiIsela BACA . Admission #: [id number] : Order #: [id number] HERE TO VIEW EXAM RADIOLOGY REPORT PROCEDURE: [...] M.D. on 02/19/2017 at 09:51 Normal The [facility] CULTURE URINEon 02-14-2017 CULTURE URINE Culture Observations : final, scanned results to follow in hpf Normal [facility] Comment on above: Performed By: #### C XUR ####[facility] Gqgedtpnsk9222 [address] Jovanna UA RANDOM W/MICROSCOPICon AMORPHOUS CRYSTALS FEW Normal [facility] Comment on above: Performed By: #### U AMIC ####[facility] Auoblsmsxg2512 [address] [place] Bilirubin (total) Negative Normal NEGATIVE [facility] Comment on above: Performed By: #### U AMIC ####[facility] Hhbccrpwum3840 [address] [place] BLOOD Negative Normal NEGATIVE The [facility] Comment on above: Performed By: #### U AMIC ####[facility] Uwiwqvbsoo0099 [address] J[place]anna CAST NONE SEEN Normal NONE SEEN The [facility] Comment on above: Performed By: #### U AMIC ####[facility] Rnmeidckjr7981 [address] J[place]anna Erythrocytes (RBC) 0-2 Normal 0-2 [facility] Comment on above: Performed By: #### U AMIC ####[facility] Mwjixmqktw5813 [address] [place] Glucose mass conc Negative Normal NEGATIVE [facility] Comment on above: Performed By: #### U AMIC ####[facility] Qirkeeslxv0124 [address] [place] MUCOUS SMALL Normal NONE SEEN The [facility] Comment on above: Performed By: #### U AMIC ####[facility] Mduouomaky5676 [place], [place] [address]Cnasoj Jovanna pH of blood 7.5 [pH] Normal 5-9 The [facility] Comment on above: Performed By: #### U AMIC ####[facility] Rjeszetoot5474 [place], [place] [address]Tobnvv Jovanna Protein Negative Normal The [facility] Comment on above: Performed By: #### U AMIC ####[facility] Bgokskmjir5003 [place] [address]Gerken Jovanna SPEC GRAVITY 1.020 Normal 1.005-<=1.025 [facility] Comment on above: Performed By: #### U AMIC ####[facility] Bwlywhhfyg6654 [place] [address]Gerken Jovanna Urine, bacteria in sediment TRACE Normal NONE SEEN The [facility] Comment on above: Performed By: #### U AMIC ####[facility] Wbthkymtoh1670 [address] J[place] Urine, clarity SL CLOUDY Normal [facility] Comment on above: Performed By: #### U AMIC ####[facility] [place] [id number] [place], [place] [address]Plyctj Jovanna Urine, color LT. YELLOW Normal YELLOW The [facility] Comment on above: Performed By: #### U AMIC ####[facility] [address] [place] [id number] Jovanna Urine, crystals in sediment SEEN Normal NONE SEEN [facility] Comment on above: Performed By: #### U AMIC ####[facility] [address] [place], [place] [address]Fdzxfa Jovanna Urine, epithelial cells in sediment FEW Normal The [facility] Comment on above: Performed By: #### U AMIC ####[facility] [address] [place], [place] [address]Sjgynx Jovanna Urine, ketones presence Negative Normal NEGATIVE The [facility] Comment on above: Performed By: #### U AMIC ####[facility] [address] [place], [place] [address]Fdwlkq Karen Urine, nitrite presence Negative Normal NEGATIVE The [facility] Comment on above: Performed By: #### U AMIC ####[facility] [address] [place], [place] [address]Egueyl Karen Urine, urobilinogen 0.2 {Rony'U}/dL Normal The [facility] Comment on above: Performed By: #### U AMIC ####[facility] [address] [place], [place] [address]Fgtwxn Karen WBC (Leukocytes) 0-2 Normal NONE SEEN The [facility] Comment on above: Performed By: #### U AMIC ####[facility] [address] [place], [place] [address]Fmhgdk Karen WBC (Leukocytes) Negative Normal NEGATIVE The [facility] Comment on above: Performed By: #### U AMIC ####[facility] [address] [place], [place] [address]Mpgijj Jovanna ABO AND RH TYPEon 02-06-2017 ABO AND RH TYPE Positive Normal The [facility] Comment on above: Performed By: #### A ALYCIA ####[facility] [address] [place], [place] [address]DkuinrAlberto Nugent PREG QUANT HCGon 02-06-2017 HCG Qn SEE BELOW Normal The [facility] Comment on above: Result Comment: 5-50 0-1 WEEK 40-300 1-2 WEEKS 100-1,000 2-3 WEEKS 500-6,000 3-4 WEEKS 5,000-200,000 1-2 MONTHS 10,000-100,000 2-3 MONTHS 3,000-50,000 2ND TRIMESTER 1,000-50,000 3RD TRIMESTER Performed By: #### P REGQNT ####[facility] [address] [place], [place] [address]Tdetme Karen HCG QUANT 01367.00 mIU/mL Normal The [facility] Comment on above: Performed By: #### P REGQNT ####[facility] [address] [place], [place] [address]SvnlewAlberto Nugent Encounters Encounter Date Encounter Type Care Provider Facility Start: 02-25-2023 End: 02-25-2023 ambulatory SONAM DEEPAK Not Available Start: 02-18-2023 End: 02-18-2023 ambulatory SONAM DEEPAK Not Available Start: 02-13-2023 End: 02-13-2023 ambulatory ISAIAS LUX Not Available Start: 01-28-2023 End: 01-28-2023 ambulatory OSNAM DEEPAK Not Available Start: 01-13-2023 End: 01-13-2023 ambulatory SONAM DEEPAK Not Available Start: 12-30-2022 End: 12-30-2022 ambulatory ISAIAS LUX Not Available Start: 09-15-2021 End: 09-15-2021 ambulatory Oly Cynthia Other [facility] Other Start: 09-15-2021 Nursing evaluation o f patient and report Oly Cynthia [facility] Start: 07-28-2017 End: 07-28-2017 Ambulatory CHAVEZ BACA Facility:[facility] Start: 07-22-2017 End: 07-24-2017 Evaluation and management of inpatient SONAM DEEPAK Facility:[facility] Start: 06-27-2017 End: 06-28-2017 Ambulatory CHAVEZ [...] [place]ACA Payers Date Payer Category Payer Unknown [id number] 1993 Unknown [id number] 2.16.84 [id number] 1993 Unknown [id number] 2.16.84 [id number] 1993 Unknown [id number] 1993 Unknown [id number] 1993 Unknown [id number] 2.16.840 .[id number] 1993 Unknown [id number] [id number] 1959 Private Health Insurance [id number] Social History Date Type Detail Facility Sex Assigned At [facility] Other Evaluation note 09-15-2021 Note Date & Type Note Facility 09-15-2021 Evaluation note Encounter Date Diagnosis Assessment Notes Sep, Cough, unspecified type (ICD-10 - R05.9) [facility] Other Summary Purpose Family History No Family History Records FoundNo Family History Records Found Advance Directives No Advanced Directives Records FoundNo Advanced Directives Records Found Additional Source Comments INFORMATION SOURCE (unrecogn ized section and content) DATE CREATED AUTHOR 08/11/2017 [facility] DATE CREATED AUTHOR AUTHOR'S ORGANIZ ATION 02/26/2023 [facility] EPIC FOR RECORDS PERTAINING [...] BE BASED ON THE PRIMARY CLINICAL RECORDS. [facility] provides no warranty or guarantee of the accuracy or completeness of information in this document.
== END 2023-02-26 08:28 | disposition home or self-care (01) ==
LOC: US 08:27
PROVIDERS: Visit Provider Obstetrics & Gynecology
DX: O26.843 Uterine size-date discrepancy, third trimester (principal); Z3A.37 37 weeks gestation of pregnancy
CPT/HCPCS: 76816

== ENCOUNTER 2023-03-05 17:53 | Inpatient (IN) | payer OTHER, SELFPAY ==
[2023-03-05] VITALS (8 sets, daily range): BP systolic 87–118; BP diastolic 48–60; PULSE 63–76; TEMP 36.5–36.6
--- OUTSIDE RECORDS SUMMARY | 2023-03-05 17:58 | XMS_ITS | CCD ---
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2 % Normal 0.2-2.0 [facility] Comment on above: Performed By: #### U AMIC ####[facility] Kqhmmnpnmf1749 [place], [place] [address]Rgacli [place] Eosinophils 0.0 103/ul Normal 0.0-0.7 [facility] Comment on above: Performed By: #### U AMIC ####[facility] Vlnpxhhdwg5368 [place] [id number] [place] Eosinophils/100 leukocytes 0.2 % Critically low 0.9-7.0 [facility] Comment on above: Performed By: #### U AMIC ####[facility] Kgqyzfibif0589 [place] [id number] [place] Erythrocyte distribution width Auto Ratio (RBC) 14.3 % Normal 11.0-15.0 [facility] Comment on above: Performed By: #### U AMIC ####[facility] [address] [place], [place] [address]Gerken [place]anna Erythrocytes (RBC) 3.30 106/ul Critically low 4.20-5.40 [facility] Comment on above: Performed By: #### U AMIC ####[facility] Janhzwwsxf[address] [place], [place] [address]Gerken [place] Hematocrit (HCT) 28.5 % Critically low 36.0-48.0 [facility] Comment on above: Performed By: #### U AMIC ####[facility] Jruwzqqqca2567 [place] [id number] [place] Hemoglobin mass conc (Bld) 9.5 g/dL Critically low 12.0-16.0 [facility] Comment on above: Performed By: #### U AMIC ####[facility] Wfaaokgagj4947 [place], [place] [address]Bplafk Jovanna IG # 0.07 10e3/ul Critically high 0.00-0.03 [facility] Comment on above: Performed By: #### U AMIC ####[facility] Ccjobxbsbd9871 [place] [id number] [place] IG % 0.5 % Normal 0.0-0.5 [facility] Comment on above: Performed By: #### U AMIC ####[facility] Vsaduuvcqq2041 [place] [id number] [place] Lymphocytes 1.1 103/ul Critically low 1.2-3.8 [facility] Comment on above: Performed By: #### U AMIC ####[facility] Zrwvgxjihb1422 [place], [place] [address]Qehmmc [place]ovanna Lymphocytes/100 leukocytes 7.3 % Critically low 20.5-60.0 [facility] Comment on above: Performed By: #### U AMIC ####[facility] Reeuhitcgn8598 [place] [id number] [place] MANUAL DIFF REQ NO Normal [facility] Comment on above: Performed By: #### U AMIC ####[facility] [address]drerxsfmt[address] [place], [place] [address]Gerken [place] MCH 28.8 pg Normal 26.7-34.0 [facility] Comment on above: Performed By: #### U AMIC ####[facility] Vthzrqrnok[address] [place], [place] [address]Gerken [place] MCHC mass conc (RBC) 33.3 g/dL Normal 29.9-35.2 [facility] Comment on above: Performed By: #### U AMIC ####[facility] Xixnbrxpzo[address] [place], [place] [address]Gerken [place] MCV 86.4 fL Normal 81.0-99.0 [facility] Comment on above: Performed By: #### U AMIC ####[facility] Nbgslyrlwu3160 [place] [id number] [place] Monocytes 0.7 103/ul Normal 0.3-0.8 [facility] Comment on above: Performed By: #### U AMIC ####[facility] Calqirpxzx0428 [place] [id number] [place] Monocytes/100 leukocytes 4.7 % Normal 1.7-12.0 [facility] Comment on above: Performed By: #### U AMIC ####[facility] Aqdbrxmevi00[address] [place], [place] [address]Nbcvtl [place] Neutrophils 12.8 103/ul Critically high 1.4-6.5 [facility] Comment on above: Performed By: #### U AMIC ####[facility] Mtdldzjgnt6544 [place], [place] [address]Puxyct [place]ovanna Neutrophils/100 WBC Auto (Bld) 87.1 % Critically high 43.0-75.0 [facility] Comment on above: Performed By: #### U AMIC ####[facility] Wutduwuzxx8689 [place], [place] [address]Yrrfnu [place]ovanna Platelet mean volume (PMV) 10.0 fL Normal 9.5-13.5 [facility] Comment on above: Performed By: #### U AMIC ####[facility] Fbtjaycsmb[address] [place] [address]Bkjaok Jovanna Platelets 171 103/ul Normal 150-450 [facility] Comment on above: Performed By: #### U AMIC ####[facility] Gmcyuwmfyf[address] [place] [address]Iqiccb [place]ovanna WBC (Leukocytes) 14.7 103/ul Critically high 4.0-11.[address] [facility] Comment on above: Performed By: #### U AMIC ####[facility] Tqtporprgo[address] [place] [address]Eccoyd [place]ov[place] CBC AUTO DIFFon 07-22-2017 Basophils Auto #/vol (Bld) 0.0 103/ul Normal 0.0-0.1 [facility] Comment on above: Performed By: #### U AMIC ####[facility] Ksmsobytcl[address] [place] [address]Pfnihu [place]ovanna Basophils/100 WBC Auto (Bld) 0.2 % Normal 0.2-2.0 [facility] Comment on above: Performed By: #### U AMIC ####[facility] Fcrxtrapnn[address] [place], [place] [address]Gerken [place]anna Eosinophils 0.1 103/ul Normal 0.0-0.7 [facility] Comment on above: Performed By: #### U AMIC ####[facility] Ouuppdxnmw5958 [address] [place] Eosinophils/100 leukocytes 0.4 % Critically low 0.9-7.0 [facility] Comment on above: Performed By: #### U AMIC ####[facility] Aysepitxei8761 [place] [id number] [place] Erythrocyte distribution width Auto Ratio (RBC) 14.5 % Normal 11.0-15.0 [facility] Comment on above: Performed By: #### U AMIC ####[facility] Ktyadawiev3940 [address] [place] Erythrocytes (RBC) 3.83 106/ul Critically low 4.20-5.40 [facility] Comment on above: Performed By: #### U AMIC ####[facility] Xzyjwusbsp1931 [address] [place] Hematocrit (HCT) 33.0 % Critically low 36.0-48.0 [facility] Comment on above: Performed By: #### U AMIC ####[facility] Chrcklnnwp[address] [place] [address] Jovanna Hemoglobin mass conc (Bld) 11.0 g/dL Critically low 12.0-16.0 [facility] Comment on above: Performed By: #### U AMIC ####[facility] Jkqyoubtit[address] [place] [address] Jovanna IG # 0.06 10e3/ul Critically high 0.00-0.03 [facility] Comment on above: Performed By: #### U AMIC ####[facility] Veynyldihg4359 [address] [place] IG % 0.4 % Normal 0.0-0.5 [facility] Comment on above: Performed By: #### U AMIC ####[facility] Kfoimrikit0485 [place] [address]Gerken [place] Lymphocytes 1.1 103/ul Critically low 1.2-3.8 [facility] Comment on above: Performed By: #### U AMIC ####[facility] Qavtlztnat[address] [place], [place] [address] [place]ovanna Lymphocytes/100 leukocytes 7.0 % Critically low 20.5-60.0 [facility] Comment on above: Performed By: #### U AMIC ####[facility] Uezgiahiow5032 [place] [id number] [place] MANUAL DIFF REQ NO Normal [facility] Comment on above: Performed By: #### U AMIC ####[facility] Soayxaloix2781 [place] [id number] [place] MCH 28.7 pg Normal 26.7-34.0 [facility] Comment on above: Performed By: #### U AMIC ####[facility] Sxagmfcqpm4337 [address] [place]anna MCHC mass conc (RBC) 33.3 g/dL Normal 29.9-35.2 [facility] Comment on above: Performed By: #### U AMIC ####[facility] Tnumxercfl9669 [address] [place] MCV 86.2 fL Normal 81.0-99.0 [facility] Comment on above: Performed By: #### U AMIC ####[facility] Rrhmrlqeah4170 [place] [address]Gerken [place] Monocytes 0.8 103/ul Normal 0.3-0.8 [facility] Comment on above: Performed By: #### U AMIC ####[facility] Osdgggrzqu0270 [address] [place] Monocytes/100 leukocytes 4.9 % Normal 1.7-12.0 [facility] Comment on above: Performed By: #### U AMIC ####[facility] Tfbdddkuru1674 [place] [id number] [place]anna Neutrophils 14.0 103/ul Critically high 1.4-6.5 [facility] Comment on above: Performed By: #### U AMIC ####[facility] Fmcxccmxhi7988 [place] [address]Gerken [place]ovanna Neutrophils/100 WBC Auto (Bld) 87.1 % Critically high 43.0-75.0 [facility] Comment on above: Performed By: #### U AMIC ####[facility] Pnzfqmsgqv2924 [address] [place] Platelet mean volume (PMV) 11.5 fL Normal 9.5-13.5 [facility] Comment on above: Performed By: #### U AMIC ####[facility] Nmnxjwndcx2438 [address] [place] Platelets 204 103/ul Normal 150-450 [facility] Comment on above: Performed By: #### U AMIC ####[facility] Gihvdqzjhu2079 [address] [place] WBC (Leukocytes) 16.0 103/ul Critically high 4.0-11.0 [facility] Comment on above: Performed By: #### U AMIC ####[facility] Eymwzmvwox6175 [address] [place] DRUG SCREEN RAPID (URINE)on 07-22-2017 AMP Negative Normal NEGATIVE [facility] Comment on above: Performed By: #### U AMIC ####[facility] Guisabevan5112 [address] [place] BAR Negative Normal NEGATIVE [facility] Comment on above: Performed By: #### U AMIC ####[facility] Nevfcegbwn7682 [address] [place] BUP Negative Normal NEGATIVE [facility] Comment on above: Performed By: #### U AMIC ####[facility] Sxvumufnie7600 [address] [place] BZO Negative Normal NEGATIVE [facility] Comment on above: Performed By: #### U AMIC ####[facility] Rfrinehdwe8443 [address] [place] KENNETH Negative Normal NEGATIVE [facility] Comment on above: Performed By: #### U AMIC ####[facility] Ayiixrnyev7331 [address] [place] CUT-OFFS SEE BELOW Normal [facility] Comment on above: Result Comment: AMP [...] 300 ng/mL Performed By: #### U AMIC ####[facility] Aoskbkatki[address] [place] [address] DRUG CUT HEADER DRUG CLASS TEST SYSTEM CUT-OFF CONCENTRATIONS ARE FOLLOWS: Normal [facility] Comment on above: Performed By: #### U AMIC ####[facility] Twrvcmkhhl[address] [place] [address] mAMP Negative Normal NEGATIVE [facility] Comment on above: Performed By: #### U AMIC ####[facility] Gwinkfsttu[address] [place] [address] MTD Negative Normal NEGATIVE [facility] Comment on above: Performed By: #### U AMIC ####[facility] Xzbsntpvkf[address] [place] [address] OPI Negative Normal NEGATIVE [facility] Comment on above: Performed By: #### U AMIC ####[facility] Orxbxldvpy[address] [place] [address] OXY Negative Normal NEGATIVE [facility] Comment on above: Performed By: #### U AMIC ####[facility] Bemxxtwdwb[address] [place] [address] PCP Negative Normal NEGATIVE [facility] Comment on above: Performed By: #### U AMIC ####[facility] Vkefcrmiba[address] [place] [address] PPX Negative Normal NEGATIVE [facility] Comment on above: Performed By: #### U AMIC ####[facility] Ejxmokkwyf7369 [place] [id number] [place]anna TCA Negative Normal NEGATIVE [facility] Comment on above: Performed By: #### U AMIC ####[facility] Zirbkcxbzq[address] [place], [place] [address]Gerken [place] THC Negative Normal NEGATIVE [facility] Comment on above: Performed By: #### U AMIC ####[facility] Dqjjrhuqaq[address] [place], [place] [address]Gerken [place]anna CHLAMYDIA/GONOCOCCUS LOR W/C ONF. (SWAB/Uon 06-28-2017 Chlamydia Trach LOR Negative Normal Negative [facility] Comment on above: Performed By: #### U AMIC ####[facility] Bwpgahtgec[address] [place] [address] Jovanna N. Gonorrhoeae LOR Negative Normal Negative [facility] Comment on above: Performed By: #### U AMIC ####[facility] Yphfpekdit394[address] [place], [place] [address]Gerken [place] CBC AUTO DIFFon 06-27-2017 Basophils Auto #/vol (Bld) 0.0 103/ul Normal 0.0-0.1 [facility] Comment on above: Performed By: #### U AMIC ####[facility] Cbokswnvyf282[address] [place], [place] [address]Gerken [place]anna Basophils/100 WBC Auto (Bld) 0.2 % Normal 0.2-2.0 [facility] Comment on above: Performed By: #### U AMIC ####[facility] Hubdcnhqlf995[address] [place], [place] [address]Gerken [place] Eosinophils 0.1 103/ul Normal 0.0-0.7 [facility] Comment on above: Performed By: #### U AMIC ####[facility] Uvsmvifmmb[address] [place], [place] [address]Gerken Jovanna Eosinophils/100 leukocytes 1.2 % Normal 0.9-7.0 [facility] Comment on above: Performed By: #### U AMIC ####[facility] Nhstvkeoca7249 [address] [place] Erythrocyte distribution width Auto Ratio (RBC) 12.9 % Normal 11.0-15.0 [facility] Comment on above: Performed By: #### U AMIC ####[facility] Fukihxkmlo3571 [place] [id number] [place]ovanna Erythrocytes (RBC) 3.47 106/ul Critically low 4.20-5.40 [facility] Comment on above: Performed By: #### U AMIC ####[facility] Svmznarwqc8647 [place] [address]Gerken [place]ovanna Hematocrit (HCT) 30.6 % Critically low 36.0-48.0 [facility] Comment on above: Performed By: #### U AMIC ####[facility] Oavnivbope8[address] [place], [place] [address]Gerken [place]ovanna Hemoglobin mass conc (Bld) 10.1 g/dL Critically low 12.0-16.0 [facility] Comment on above: Performed By: #### U AMIC ####[facility] Bbcfrxqtkr[address] [place], [place] [address]Gerken [place]anna IG # 0.03 10e3/ul Normal 0.00-0.03 [facility] Comment on above: Performed By: #### U AMIC ####[facility] Pfnvgryhig[address] [place] [address] Jovanna IG % 0.3 % Normal 0.0-0.5 [facility] Comment on above: Performed By: #### U AMIC ####[facility] Snwrywmpdd6836 [place] [address]Gerken [place] Lymphocytes 1.6 103/ul Normal 1.2-3.8 [facility] Comment on above: Performed By: #### U AMIC ####[facility] Gclanrzqjh[address] [place], [place] [address]Gerken [place] Lymphocytes/100 leukocytes 17.3 % Critically low 20.5-60.0 [facility] Comment on above: Performed By: #### U AMIC ####[facility] Pqpolnzjtn[address] [place], [place] [address]Ger[address] [place] MANUAL DIFF REQ NO Normal [facility] Comment on above: Performed By: #### U AMIC ####[facility] Cbngxjyjcz8574 [place] [id number] [place] MCH 29.1 pg Normal 26.7-34.0 [facility] Comment on above: Performed By: #### U AMIC ####[facility] Ffwnveifow4445 [address] [place] MCHC mass conc (RBC) 33.0 g/dL Normal 29.9-35.2 [facility] Comment on above: Performed By: #### U AMIC ####[facility] Iarfxzimth0103 [address] [place] MCV 88.2 fL Normal 81.0-99.0 [facility] Comment on above: Performed By: #### U AMIC ####[facility] Gksppcapdp3872 [address] [place] Monocytes 0.7 103/ul Normal 0.3-0.8 [facility] Comment on above: Performed By: #### U AMIC ####[facility] Sryvvpgosh6243 [address] [place] Monocytes/100 leukocytes 7.7 % Normal 1.7-12.0 [facility] Comment on above: Performed By: #### U AMIC ####[facility] Kfpaysospg6558 [address] [place] Neutrophils 6.6 103/ul Critically high 1.4-6.5 [facility] Comment on above: Performed By: #### U AMIC ####[facility] Qlmjelvppc7810 [address] [place] Neutrophils/100 WBC Auto (Bld) 73.3 % Normal 43.0-75.0 [facility] Comment on above: Performed By: #### U AMIC ####[facility] Tfukjkqywx9119 [place] [id number] [place] Platelet mean volume (PMV) 10.4 fL Normal 9.5-13.5 [facility] Comment on above: Performed By: #### U AMIC ####[facility] Kuiwygmuxp0030 [place] [address]Gerken [place] Platelets 235 103/ul Normal 150-450 [facility] Comment on above: Performed By: #### U AMIC ####[facility] Fihjtlscch3562 [place] [id number] [place] WBC (Leukocytes) 9.1 103/ul Normal 4.0-11.0 [facility] Comment on above: Performed By: #### U AMIC ####[facility] Eydexsxthv[address] [place] [address] Jovanna GROUP B STREPTon 06-25-2017 GBS Performed by [facility] , final report to follow Normal NEG FOR GBS [facility] Comment on above: Performed By: #### U AMIC ####[facility] K[address]xljmehu[address] [place] [address] [place] CBC AUTO DIFFon 05-16-2017 Basophils Auto #/vol (Bld) 0.0 103/ul Normal 0.0-0.1 [facility] Comment on above: Performed By: #### P REGQNT ####[facility] Qxetssuphz[address] [place] [address] J[place] Basophils/100 WBC Auto (Bld) 0.2 % Normal 0.2-2.0 [facility] Comment on above: Performed By: #### P REGQNT ####[facility] Uhezcbvjnu[address] [place] [address] J[place] Eosinophils 0.1 103/ul Normal 0.0-0.7 [facility] Comment on above: Performed By: #### P REGQNT ####[facility] Suxmwynevv[address] [place] [address] [place] Eosinophils/100 leukocytes 0.7 % Critically low 0.9-7.0 [facility] Comment on above: Performed By: #### P REGQNT ####[facility] Cqdebkvqjv[address] [place] [address] J[place]anna Erythrocyte distribution width Auto Ratio (RBC) 12.6 % Normal 11.0-15.0 [facility] Comment on above: Performed By: #### P REGQNT ####[facility] Hzjyrpqyqp89[address] [place] [address] Jovanna Erythrocytes (RBC) 3.42 106/ul Critically low 4.20-5.40 [facility] Comment on above: Performed By: #### P REGQNT ####[facility] Bsgxwaknsj[address] [place] [address] J[place] Hematocrit (HCT) 30.4 % Critically low 36.0-48.0 [facility] Comment on above: Performed By: #### P REGQNT ####[facility] Lrhhnpuooy[address] [place] [address] J[place] Hemoglobin mass conc (Bld) 10.3 g/dL Critically low 12.0-16.0 [facility] Comment on above: Performed By: #### P REGQNT ####[facility] Uyfgnpnkzu[address] [place] [address] Jovanna IG # 0.08 10e3/ul Critically high 0.00-0.03 [facility] Comment on above: Performed By: #### P REGQNT ####[facility] Bpufexebjx[address] [place] [address] Jovanna IG % 0.6 % Critically high 0.0-0.5 [facility] Comment on above: Performed By: #### P REGQNT ####[facility] Rdapxdpizi[address] [place] [address] Jovanna Lymphocytes 1.2 103/ul Normal 1.2-3.8 [facility] Comment on above: Performed By: #### P REGQNT ####[facility] Alaemqqwtd[address] [place] [address] Jovanna Lymphocytes/100 leukocytes 9.3 % Critically low 20.5-60.0 [facility] Comment on above: Performed By: #### P REGQNT ####[facility] T[address]vjuljkh[address] [place] [address] Jovanna MANUAL DIFF REQ NO Normal [facility] Comment on above: Performed By: #### P REGQNT ####[facility] Edgpvlvlps5518 [place] [id number] Nugent MCH 30.1 pg Normal 26.7-34.0 [facility] Comment on above: Performed By: #### P REGQNT ####[facility] Ehvqhbhjxe9741 [place] [id number] [place] MCHC mass conc (RBC) 33.9 g/dL Normal 29.9-35.2 [facility] Comment on above: Performed By: #### P REGQNT ####[facility] Ldttpiovdz4506 [place] [id number] [place] MCV 88.9 fL Normal 81.0-99.0 [facility] Comment on above: Performed By: #### P REGQNT ####[facility] Oszrvzwzdm4664 [address] [place] Monocytes 0.7 103/ul Normal 0.3-0.8 [facility] Comment on above: Performed By: #### P REGQNT ####[facility] Hajghxdkky2283 [address] [place] Monocytes/100 leukocytes 5.3 % Normal 1.7-12.0 [facility] Comment on above: Performed By: #### P REGQNT ####[facility] Iexumhxzlw1976 [place] [id number] [place] Neutrophils 10.5 103/ul Critically high 1.4-6.5 [facility] Comment on above: Performed By: #### P REGQNT ####[facility] Sbemoewuqv1224 [place] [id number] Nugent Neutrophils/100 WBC Auto (Bld) 83.9 % Critically high 43.0-75.0 [facility] Comment on above: Performed By: #### P REGQNT ####[facility] Snhmouajxo4867 [place] [id number] Nugent Platelet mean volume (PMV) 9.0 fL Critically low 9.5-13.5 [facility] Comment on above: Performed By: #### P REGQNT ####[facility] Rycpfjqfen9690 [place] [address]Angela Nugent Platelets 233 103/ul Normal 150-450 [facility] Comment on above: Performed By: #### P REGQNT ####[facility] Uxioocqmio6578 [place] [address]Alberto Nugent WBC (Leukocytes) 12.6 103/ul Critically high 4.0-11.0 [facility] Comment on above: Performed By: #### P REGQNT ####[facility] Umckonsofs[address] [place], [place] [address]ZyectkAlberto Nugent GLUCOSE - 1HRon 05-16-2017 Glucose mass conc 112 mg/dL Critically high 74-106 Th [facility] Comment on above: Performed By: #### P REGQNT ####[facility] [address] [place] [address]Alberto Nugent US PREG INCOMPLETE ANATOMYon 04-25-2017 US PREG INCOMPLETE ANATOMY [address] [place] [address] Patient: LINNEA CAPELLAN Exam Date: 04/25/2017DOB: 1995 Gender:F : HCAVEZ BACA . Admission #: [id number] : Order #: [id number] HERE TO VIEW EXAM RADIOLOGY REPORT PROCEDURE: [...] Herzog M.D. on 04/25/2017 at 11:42 Normal [facility] US PREG ANATOMY SINGLEon US PREG ANATOMY SINGLE [address] [place] [address] Patient: LINNEA CAPELLAN Exam Date: 03/10/2017DOB: 1995 Gender:F : CHAVEZ BACA . Admission #: [id number] : Order #: [id number] HERE TO VIEW EXAM RADIOLOGY REPORT PROCEDURE: [...] Barbosa M.D. on 03/10/2017 at 12:18 Normal [facility] PAP ACOG PANEL 4: 21 to 29on 03-03-2017 Age Gdln ACOG Testing - Normal [facility] Comment on above: Performed By: #### P REGQNT ####[facility] [address] [place] [address] Chlamydia, Nuc. Acid Amp Negative Normal Negative [facility] Comment on above: Result Comment: Perf ormed at: =G Performed By: #### P REGQNT ####[facility] [address] [place], [place] [address] DIAGNOSIS: Comment Normal [facility] Comment on above: Result Comment: NEGA TIVE FOR INTRAEPITHELIAL LESION AND MALIGNANCY.Performed at: WB Performed By: #### P REGQNT ####[facility] [address] [place] [address] J[place]anna Gonococcus, Nuc. Acid Amp Negative Normal Negative [facility] Comment on above: Result Comment: Perf ormed at: =G Performed By: #### P REGQNT ####[facility] B[address] [place], [place] [address] Methodology: Comment Normal [facility] Comment on above: Result Comment: This liquid based ThinPrep(R) pap test was screened with theuse of an image guided system.Performed at: WB Performed By: #### P REGQNT ####[facility] [address] [place] [address] Note: Comment Normal [facility] Comment on above: Result Comment: The Pap smear is a screening test designed to aid in the detection ofpremalignant and malignant conditions of the uterine cervix. It is not adiagnostic procedure and should not be used as the sole means of detectingcervical cancer. Both false-positive and false-negative reports do occur. .Performed at: WB Performed By: #### P REGQNT ####[facility] [address] [place] [address] Performed by: Comment Normal [facility] Comment on above: Result Comment: Florentni Collins, Downstream Biomanufacturing Technician (ASCP)Performed at: WB Performed By: #### P REGQNT ####[facility] [address] [place] [address] Reflex Criteria: Comment Normal [facility] Comment on above: Result Comment: The HPV DNA reflex criteria were not met with this specimen resulttherefore, no HPV testing was performed. .Performed at: WB Performed By: #### P REGQNT ####[facility] [address] [place] [address] Specimen adequacy: Comment Normal [facility] Comment on above: Result Comment: Sati sfactory for evaluation. Endocervical and/or squamous metaplasticcells (endocervical component) are present.Performed at: WB Performed By: #### P REGQNT ####[facility] [address] [place] [address] Trich vag by LOR Negative Normal Negative [facility] Comment on above: Result Comment: Perf ormed at: =G Performed By: #### P REGQNT ####[facility] [address] [place] [address] . . Normal [facility] Comment on above: Result Comment: Perf ormed at: WB Performed By: #### P REGQNT ####[facility] [address] [place] [address] HEP B SURFACE AGon 8 BSA (Body Surface Area) Negative Normal Negative [facility] Comment on above: Performed By: #### H EPBSUR ####[facility] [address] [place] [address] HEPATITIIS C VIRUS ANTIBODYo n 02-27-2017 Hep C Virus Ab <0.1 Normal 0.0-0.9 [facility] Comment on above: Result Comment: Nega tive: < 0.8 Indeterminate: 0.8 - 0.9 Positive: > 0.9 . The CDC recommends that a positive HCV antibody result be followed up with a HCV Nucleic Acid Amplification test (633751). Performed By: #### H CV ####[facility] [address] [place] [address] Jovanna HGB(ELECTP) FRACTION PROFILE on 02-27-2017 Hemoglobin mass conc (Bld) 3.0 % Normal 1.8-3.2 [facility] Comment on above: Result Comment: Pl ease note reference interval change Performed By: #### P REGQNT ####[facility] [address] [place] [address] Jovanna Hemoglobin mass conc (Bld) 0.0 % Normal 0.0 [facility] Comment on above: Performed By: #### P REGQNT ####[facility] [address] [place] [address] J[place]anna Hemoglobin mass conc (Bld) Negative Normal Negative [facility] Comment on above: Performed By: #### P REGQNT ####[facility] [address] [place] [address] Jovanna Hemoglobin mass conc (Bld) 0.5 % Normal 0.0-2.0 [facility] Comment on above: Result Comment: Pl ease note reference interval change Performed By: #### P REGQNT ####[facility] [address] [place] [address] Jovanna Hemoglobin mass conc (Bld) 96.5 % Normal 96.4-98.8 [facility] Comment on above: Result Comment: Pl ease note reference interval change Performed By: #### P REGQNT ####[facility] [address] [place] [address] Jovanna Hemoglobin mass conc (Bld) Normal [facility] Comment on above: Performed By: #### P REGQNT ####[facility] [address] [place] [id number] Nugent Interpretation Comment Normal [facility] Comment on above: Result Comment: Norm al adult hemoglobin present. Performed By: #### P REGQNT ####[facility] [address] [place] [address]Alberto Nugent RPR QUANTon 02-27-2017 Rapid Plasma Reagin, Quant Non Reactive Normal NonRea<1:1 [facility] Comment on above: Performed By: #### P REGQNT ####[facility] [address] [place] [address] [place] VARICELLA IGG ABon 8 Varicella Zoster IgG <135 Critically low Immune >165 [facility] Comment on above: Result Comment: Nega tive <135 Equivocal 135 - 165 Positive >165 A positive result generally indicates exposure to the pathogen or administration of specific immunoglobulins, but it is not indication of active infection or stage of disease. Performed By: #### P REGQNT ####[facility] [address] [place] [address] J[place] TYPE AND SCREENon 02-26-2017 TYPE AND SCREEN Negative Normal [facility] Comment on above: Performed By: #### T NS ####[facility] [address] [place] [address] [place] CBC AUTO DIFFon 02-25-2017 Basophils Auto #/vol (Bld) 0.0 103/ul Normal 0.0-0.1 [facility] Comment on above: Performed By: #### C BC ####[facility] [address] [place] [address] J[place] Basophils/100 WBC Auto (Bld) 0.3 % Normal 0.2-2.0 [facility] Comment on above: Performed By: #### C BC ####[facility] [address] [place] [address] J[place] Eosinophils 0.1 103/ul Normal 0.0-0.7 [facility] Comment on above: Performed By: #### C BC ####[facility] Eqkjfnzkvi[address]83 [address] [place] Eosinophils/100 leukocytes 1.2 % Normal 0.9-7.0 [facility] Comment on above: Performed By: #### C BC ####[facility] Gcfnjmtpqo[address] [place] Erythrocyte distribution width Auto Ratio (RBC) 13.6 % Normal 11.0-15.0 [facility] Comment on above: Performed By: #### C BC ####[facility] Vecfhardap7406 [address] [place] Erythrocytes (RBC) 3.59 106/ul Critically low 4.20-5.40 [facility] Comment on above: Performed By: #### C BC ####[facility] [address] [place], [place] [address]Ger[address] Jovanna Hematocrit (HCT) 32.3 % Critically low 36.0-48.0 [facility] Comment on above: Performed By: #### C BC ####[facility] A[address]ac[address] [place] [address] J[place] Hemoglobin mass conc (Bld) 10.7 g/dL Critically low 12.0-16.0 [facility] Comment on above: Performed By: #### C BC ####[facility] X[address] [place], [place] [address]Gerken Jovanna IG # 0.11 10e3/ul Critically high 0.00-0.03 The [facility] Comment on above: Performed By: #### C BC ####[facility] [address] [place] [address] Jovanna IG % 1.2 % Critically high 0.0-0.5 [facility] Comment on above: Performed By: #### C BC ####[facility] [address] [place], [place] [address]Gerken Jovanna Lymphocytes 1.4 103/ul Normal 1.2-3.8 [facility] Comment on above: Performed By: #### C BC ####[facility] Q[address] [place], [place] [address]Gerken Jovanna Lymphocytes/100 leukocytes 15.2 % Critically low 20.5-60.0 [facility] Comment on above: Performed By: #### C BC ####[facility] [address] [place] [id number] Jovanna MANUAL DIFF REQ NO Normal [facility] Comment on above: Performed By: #### C BC ####[facility] [address] [place] [id number] Jovanna MCH 29.8 pg Normal 26.7-34.0 [facility] Comment on above: Performed By: #### C BC ####[facility] [address] [place] [id number] Jovanna MCHC mass conc (RBC) 33.1 g/dL Normal 29.9-35.2 [facility] Comment on above: Performed By: #### C BC ####[facility] [address] [place] [address] Jovanna MCV 90.0 fL Normal 81.0-99.0 [facility] Comment on above: Performed By: #### C BC ####[facility] [address] [place] [address] J[place] Monocytes 0.5 103/ul Normal 0.3-0.8 [facility] Comment on above: Performed By: #### C BC ####[facility] [address] [place] [address] [place] Monocytes/100 leukocytes 5.7 % Normal 1.7-12.0 [facility] Comment on above: Performed By: #### C BC ####[facility] [address] [place] [id number] Jovanna Neutrophils 7.2 103/ul Critically high 1.4-6.5 [facility] Comment on above: Performed By: #### C BC ####[facility] N[address]es[address] [place] [id number] Jovanna Neutrophils/100 WBC Auto (Bld) 76.4 % Critically high 43.0-75.0 [facility] Comment on above: Performed By: #### C BC ####[facility] [address] [place], [place] [address]SmlidtAlberto Nugent Platelet mean volume (PMV) 10.1 fL Normal 9.5-13.5 [facility] Comment on above: Performed By: #### C BC ####[facility] [address]le[address] [place], [place] [address]MwsegjAlberto Nugent Platelets 248 103/ul Normal 150-450 [facility] Comment on above: Performed By: #### C BC ####[facility] [address]axxktl[address] [place], [place] [address]Yicekd Karen WBC (Leukocytes) 9.5 103/ul Normal 4.0-11.0 [facility] Comment on above: Performed By: #### C BC ####[facility] [address] [place], [place] [address]VnopbiAlberto Nugent HIV 1 AND 2 ABon 02-25-2017 HIV 1 AND 2 AB Negative Normal NEGATIVE [facility] Comment on above: Performed By: #### P REGQNT ####[facility] [address] [place] [address]Cynzls Karen PREG QUANT HCGon 02-25-2017 HCG Qn SEE BELOW Normal [facility] Comment on above: Result Comment: 5-50 0-1 WEEK 40-300 1-2 WEEKS 100-1,000 2-3 WEEKS 500-6,000 3-4 WEEKS 5,000-200,000 1-2 MONTHS 10,000-100,000 2-3 MONTHS 3,000-50,000 2ND TRIMESTER 1,000-50,000 3RD TRIMESTER Performed By: #### P REGQNT ####[facility] [address] [place], [place] [address]Tweocw Jovanna HCG QUANT 83777.00 mIU/mL Normal [facility] Comment on above: Performed By: #### P REGQNT ####[facility] [address] [place], [place] [address]WktpwsAlberto Nugent RUBELLA AB IGGon 02-25-2017 RUB HEADER SEE BELOW Normal [facility] Comment on above: Result Comment: or=1 5.0 IU/mL POSITIVE WHO considers levels >or= 10.0 IU/mL to be positive immune status Performed By: #### P REGQNT ####[facility] Z[address] [place], [place] [address]EyvjnnAlberto Nugent RUB IGG 6.8 IU/mL Normal [facility] Comment on above: Performed By: #### P REGQNT ####[facility] [address] [place], [place] [address]TtevuuAlberto Nugent US PREG DATING >14WEEKSon US PREG DATING >14WEEKS [address] [place] [address] Patient: LINNEA CAPELLAN Exam Date: 02/19/2017DOB: 1995 Gender:F : CHAVEZ BACA . Admission #: [id number] : Order #: [id number] HERE TO VIEW EXAM RADIOLOGY REPORT PROCEDURE: [...] M.D. on 02/19/2017 at 09:51 Normal [facility] CULTURE URINEon 02-14-2017 CULTURE URINE Culture Observations : final, scanned results to follow in hpf Normal [facility] Comment on above: Performed By: #### C XUR ####[facility] Thqsk[address]jq[address] [place] UA RANDOM W/MICROSCOPICon AMORPHOUS CRYSTALS FEW Normal [facility] Comment on above: Performed By: #### U AMIC ####[facility] Vjnrvermnn[address] [place] Bilirubin (total) Negative Normal NEGATIVE [facility] Comment on above: Performed By: #### U AMIC ####[facility] Hchxpwxvlo[address]46 [address] [place] BLOOD Negative Normal NEGATIVE [facility] Comment on above: Performed By: #### U AMIC ####[facility] Cmlavoyyiz[address]233 [address] [place] CAST NONE SEEN Normal NONE SEEN [facility] Comment on above: Performed By: #### U AMIC ####[facility] Rzlucfpsgc[address] [place] Erythrocytes (RBC) 0-2 Normal 0-[address] [facility] Comment on above: Performed By: #### U AMIC ####[facility] Bqycxcvije4[address] [place] Glucose mass conc Negative Normal NEGATIVE [facility] Comment on above: Performed By: #### U AMIC ####[facility] Yedwjqtphn[address] [place] MUCOUS SMALL Normal NONE SEEN [facility] Comment on above: Performed By: #### U AMIC ####[facility] Knrsnafhou15[address] [place], [place] [address]Weqkuk Jovanna pH of blood 7.5 [pH] Normal 5-9 [facility] Comment on above: Performed By: #### U AMIC ####[facility] [address] [place] [id number] [place]ovanna Protein Negative Normal [facility] Comment on above: Performed By: #### U AMIC ####[facility] Dgoscezati[address] [place] [address]Gerken Jovanna SPEC GRAVITY 1.020 Normal 1.005-<=1.025 [facility] Comment on above: Performed By: #### U AMIC ####[facility] O[address]kyfpr[address] [place] [address]Gerken Jov[place] Urine, bacteria in sediment TRACE Normal NONE SEEN [facility] Comment on above: Performed By: #### U AMIC ####[facility] T[address]ib[address] [place] [address]Gerken Jovanna Urine, clarity SL CLOUDY Normal [facility] Comment on above: Performed By: #### U AMIC ####[facility] I[address]qsidqp[address] [place] [address]Gerken Jovanna Urine, color LT. YELLOW Normal YELLOW [facility] Comment on above: Performed By: #### U AMIC ####[facility] [address] [place] [id number] Jovanna Urine, crystals in sediment SEEN Normal NONE SEEN [facility] Comment on above: Performed By: #### U AMIC ####[facility] Z[address]byv[address]zx[address] [place] [address]Gerken Jovanna Urine, epithelial cells in sediment FEW Normal [facility] Comment on above: Performed By: #### U AMIC ####[facility] [address] [place] [address]Gerken [place] Urine, ketones presence Negative Normal NEGATIVE [facility] Comment on above: Performed By: #### U AMIC ####[facility] [address] [place], [place] [address]Utjoph Karen Urine, nitrite presence Negative Normal NEGATIVE [facility] Comment on above: Performed By: #### U AMIC ####[facility] [address] [place], [place] [address]Bagmps Karen Urine, urobilinogen 0.2 {Rony'U}/dL Normal [facility] Comment on above: Performed By: #### U AMIC ####[facility] [address] [place] [address]Gerdeangelo Nugent WBC (Leukocytes) 0-2 Normal NONE SEEN The [facility] Comment on above: Performed By: #### U AMIC ####[facility] Bj[address]kajqlys[address] [place] [address]Gerdeangelo Nugent WBC (Leukocytes) Negative Normal NEGATIVE [facility] Comment on above: Performed By: #### U AMIC ####[facility] [address]tw[address] [place] [address]Gerken Jovanna ABO AND RH TYPEon 02-06-2017 ABO AND RH TYPE Positive Normal [facility] Comment on above: Performed By: #### A ALYCIA ####[facility] Emyearsmxf[address] [place] [address]Gerdeangelo Nugent PREG QUANT HCGon 02-06-2017 HCG Qn SEE BELOW Normal [facility] Comment on above: Result Comment: 5-50 0-1 WEEK 40-300 1-2 WEEKS 100-1,000 2-3 WEEKS 500-6,000 3-4 WEEKS 5,000-200,000 1-2 MONTHS 10,000-100,000 2-3 MONTHS 3,000-50,000 2ND TRIMESTER 1,000-50,000 3RD TRIMESTER Performed By: #### P REGQNT ####[facility] [address] [place] [id number] Jovanna HCG QUANT 50619.00 mIU/mL Normal [facility] Comment on above: Performed By: #### P REGQNT ####[facility] [address] [place], [place] [address]Ddkkcn Karen Encounters Encounter Date Encounter Type Care Provider Facility Start: 03-04-2023 End: 03-04-2023 ambulatory ISAIAS MACI Not Available Start: 02-25-2023 End: 02-25-2023 ambulatory SONAM DEEPAK Not Available Start: 02-18-2023 End: 02-18-2023 ambulatory SONAM DEEPAK Not Available Start: 02-13-2023 End: 02-13-2023 ambulatory ISAIAS MACI Not Available Start: 01-28-2023 End: 01-28-2023 ambulatory SONAM DEEPAK Not Available Start: 01-13-2023 End: 01-13-2023 ambulatory SONAM DEEPAK Not Available Start: 12-30-2022 End: 12-30-2022 ambulatory ISAIAS MACI Not Available Start: 09-15-2021 End: 09-15-2021 ambulatory Oly Marie Other [facility] Other Start: 09-15-2021 Nursing evaluation o f patient and report Oly Marie [facility] Start: 07-28-2017 [...] [employer] Payers Date Payer Category Payer Unknown [id number] 2022 Unknown [id number] 1995 Unknown [id number] 2.16.84 [id number] 1995 Unknown [id number] 2.16.84 [id number] 1995 Unknown [id number] 2.16.84 [id number] 1993 Unknown [id number] 2.16.840 .[id number] 1993 Unknown [id number] 2.16.840 .[id number] 1993 Unknown [id number] 2.16.840 .[id number] 1993 Unknown [id number] [id number] .[id number] 1961 Private Health Insurance [id number] Social History Date Type Detail Facility Sex Assigned At [facility] Other Evaluation note 09-15-2021 Note Date & Type Note Facility 09-15-2021 Evaluation note Encounter Date Diagnosis Assessment Notes Sep, Cough, unspecified type (ICD-10 - R05.9) [facility] Other Summary Purpose Family History No Family History Records FoundNo Family History Records Found Advance Directives No Advanced Directives Records FoundNo Advanced Directives Records Found Additional Source Comments INFORMATION SOURCE (unrecogn ized section and content) DATE CREATED AUTHOR 08/11/2017 [facility] DATE CREATED AUTHOR AUTHOR'S SHANNON ALCARAZ 03/05/2023 [facility] FOR RECORDS PERTAINING TO PATIENTS WHO ARE [...] BE BASED ON THE PRIMARY CLINICAL RECORDS. [employer] provides no warranty or guarantee of the accuracy or completeness of information in this document.
--- OUTSIDE RECORDS SUMMARY | 2023-03-05 18:42 | XMS_ITS | CCD ---
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 Phone CHAVEZ BACA Unavailable Unavailable [...] Facility COVID Quick Testingon 2021 Result Positive [facility] Other CBC AUTO DIFFon 07-23-2017 Basophils Auto #/vol (Bld) 0.0 103/ul Normal 0.0-0.1 [facility] Comment on above: Performed By: #### U AMI ####[facility] Fwohhdxmyj5542 [place], [place] [address]Qwchuq Jovanna Basophils/100 WBC Auto (Bld) 0.2 % Normal 0.2-2.0 [facility] Comment on above: Performed By: #### U AMIC ####[facility] Kqxiikfjrk5580 [place], [place] [address]Tbdvxe [place] Eosinophils 0.0 103/ul Normal 0.0-0.7 [facility] Comment on above: Performed By: #### U AMIC ####[facility] Xtaerlqytm7448 [place] [phone] [place] Eosinophils/100 leukocytes 0.2 % Critically low 0.9-7.0 [facility] Comment on above: Performed By: #### U AMIC ####[facility] Gammcgddcg5799 [place] [phone] [place] Erythrocyte distribution width Auto Ratio (RBC) 14.3 % Normal 11.0-15.0 [facility] Comment on above: Performed By: #### U AMIC ####[facility] Tfbteqq[address] [place], [place] [address]Gerken [place] Erythrocytes (RBC) 3.30 106/ul Critically low 4.20-5.40 [facility] Comment on above: Performed By: #### U AMIC ####[facility] Fimylyqgqi[address] [place], [place] [address]Gerken [place] Hematocrit (HCT) 28.5 % Critically low 36.0-48.0 [facility] Comment on above: Performed By: #### U AMIC ####[facility] Zliwpixxxi7336 [place] [phone] [place] Hemoglobin mass conc (Bld) 9.5 g/dL Critically low 12.0-16.0 [facility] Comment on above: Performed By: #### U AMIC ####[facility] Rxluvsrjos7588 [place], [place] [address]Loebib [place]ovanna IG # 0.07 10e3/ul Critically high 0.00-0.03 [facility] Comment on above: Performed By: #### U AMIC ####[facility] Ikwkfbqvxz2626 [place] [phone] [place] IG % 0.5 % Normal 0.0-0.5 [facility] Comment on above: Performed By: #### U AMIC ####[facility] Wajasuhctq5832 [place] [phone] [place] Lymphocytes 1.1 103/ul Critically low 1.2-3.8 [facility] Comment on above: Performed By: #### U AMIC ####[facility] Pdvkdnwgem3427 [place], [place] [address]Iqdtyq [place] Lymphocytes/100 leukocytes 7.3 % Critically low 20.5-60.0 [facility] Comment on above: Performed By: #### U AMIC ####[facility] Ezmpiaxvfz1664 [place] [phone] [place] MANUAL DIFF REQ NO Normal [facility] Comment on above: Performed By: #### U AMIC ####[facility] Ggxgpequvm[address] [place], [place] [address]Gerken [place] MCH 28.8 pg Normal 26.7-34.0 [facility] Comment on above: Performed By: #### U AMIC ####[facility] Owcqcxtqvr[address] [place], [place] [address]Gerken [place] MCHC mass conc (RBC) 33.3 g/dL Normal 29.9-35.2 [facility] Comment on above: Performed By: #### U AMIC ####[facility] Bxouuqmkfc[address] [place], [place] [address]Gerken [place] MCV 86.4 fL Normal 81.0-99.0 [facility] Comment on above: Performed By: #### U AMIC ####[facility] Clxazhcdpk2209 [place] [phone] [place] Monocytes 0.7 103/ul Normal 0.3-0.8 [facility] Comment on above: Performed By: #### U AMIC ####[facility] Xagyzbrhgd9872 [place] [phone] [place] Monocytes/100 leukocytes 4.7 % Normal 1.7-12.0 [facility] Comment on above: Performed By: #### U AMIC ####[facility] [address]ptexixxwp57[address], [place] [address]Lcgbyo [place] Neutrophils 12.8 103/ul Critically high 1.4-6.5 [facility] Comment on above: Performed By: #### U AMIC ####[facility] Rjsooakpiz9185 [place], [place] [address]Yhpfby [place]ovanna Neutrophils/100 WBC Auto (Bld) 87.1 % Critically high 43.0-75.0 [facility] Comment on above: Performed By: #### U AMIC ####[facility] Skuwqhiwuz3499 [place], [place] [address]Qsjaor [place] Platelet mean volume (PMV) 10.0 fL Normal 9.5-13.5 [facility] Comment on above: Performed By: #### U AMIC ####[facility] Fmtzdengfj[address] [place] [address]cudsl [place] Platelets 171 103/ul Normal 150-450 [facility] Comment on above: Performed By: #### U AMIC ####[facility] Fgcroxbisi[address] [place] [address]Qtlhjj [place] WBC (Leukocytes) 14.7 103/ul Critically high 4.0-11.0 [facility] Comment on above: Performed By: #### U AMIC ####[facility] Sazyfcmnfj[address] [place] [address]Jttyeb [place]ov[place] CBC AUTO DIFFon 07-22-2017 Basophils Auto #/vol (Bld) 0.0 103/ul Normal 0.0-0.1 [facility] Comment on above: Performed By: #### U AMIC ####[facility] Apqpejioge[address] [place] [address]Xrcnmc [place]ov[place] Basophils/100 WBC Auto (Bld) 0.2 % Normal 0.2-2.0 [facility] Comment on above: Performed By: #### U AMIC ####[facility] Grtkgqdmkp9[address] [place], [place] [address]Gerken [place] Eosinophils 0.1 103/ul Normal 0.0-0.7 [facility] Comment on above: Performed By: #### U AMIC ####[facility] Bylwhauozq7063 [address] [place] Eosinophils/100 leukocytes 0.4 % Critically low 0.9-7.0 [facility] Comment on above: Performed By: #### U AMIC ####[facility] Hcaxxpdmyk9115 [place] [phone] [place] Erythrocyte distribution width Auto Ratio (RBC) 14.5 % Normal 11.0-15.0 [facility] Comment on above: Performed By: #### U AMIC ####[facility] Nlmrnlsxwk1241 [address] [place] Erythrocytes (RBC) 3.83 106/ul Critically low 4.20-5.40 [facility] Comment on above: Performed By: #### U AMIC ####[facility] Hfvdkgidqu7157 [address] [place] Hematocrit (HCT) 33.0 % Critically low 36.0-48.0 [facility] Comment on above: Performed By: #### U AMIC ####[facility] Yweumyip[address] [place] [address] Jovanna Hemoglobin mass conc (Bld) 11.0 g/dL Critically low 12.0-16.0 [facility] Comment on above: Performed By: #### U AMIC ####[facility] Kvzkuxfrmv[address] [place] [address] Jovanna IG # 0.06 10e3/ul Critically high 0.00-0.03 [facility] Comment on above: Performed By: #### U AMIC ####[facility] Zngvtaueky2230 [address] [place] IG % 0.4 % Normal 0.0-0.5 [facility] Comment on above: Performed By: #### U AMIC ####[facility] Lphnvnyskn0094 [place] [address]Ger[place] Lymphocytes 1.1 103/ul Critically low 1.2-3.8 [facility] Comment on above: Performed By: #### U AMIC ####[facility] Xczppfvvwq[address] [place], [place] [address] [place] Lymphocytes/100 leukocytes 7.0 % Critically low 20.5-60.0 [facility] Comment on above: Performed By: #### U AMIC ####[facility] Qlvfdbbknc6867 [place] [phone] [place] MANUAL DIFF REQ NO Normal [facility] Comment on above: Performed By: #### U AMIC ####[facility] Pzozdjogpq2176 [place] [phone] [place] MCH 28.7 pg Normal 26.7-34.0 [facility] Comment on above: Performed By: #### U AMIC ####[facility] Kkbhyggnka3773 [address] [place] MCHC mass conc (RBC) 33.3 g/dL Normal 29.9-35.2 [facility] Comment on above: Performed By: #### U AMIC ####[facility] Kmpcdckglg7425 [address] [place] MCV 86.2 fL Normal 81.0-99.0 [facility] Comment on above: Performed By: #### U AMIC ####[facility] Ziglazmhoi4301 [place] [address]Ger[place] Monocytes 0.8 103/ul Normal 0.3-0.8 [facility] Comment on above: Performed By: #### U AMIC ####[facility] Avzrvmsujc1219 [address] [place] Monocytes/100 leukocytes 4.9 % Normal 1.7-12.0 [facility] Comment on above: Performed By: #### U AMIC ####[facility] Zmqmyokazh2008 [place] [phone] [place] Neutrophils 14.0 103/ul Critically high 1.4-6.5 [facility] Comment on above: Performed By: #### U AMIC ####[facility] Kyydywowoh2913 [place] [address] Neutrophils/100 WBC Auto (Bld) 87.1 % Critically high 43.0-75.0 [facility] Comment on above: Performed By: #### U AMIC ####[facility] Ueuneoenen0019 [address] [place] Platelet mean volume (PMV) 11.5 fL Normal 9.5-13.5 [facility] Comment on above: Performed By: #### U AMIC ####[facility] Iaveejeuix10[address] [place] Platelets 204 103/ul Normal 150-450 [facility] Comment on above: Performed By: #### U AMIC ####[facility] Olzxyxtrog8634 [address] [place] WBC (Leukocytes) 16.0 103/ul Critically high 4.0-11.0 [facility] Comment on above: Performed By: #### U AMIC ####[facility] Ndvzvyzvjc3658 [address] [place] DRUG SCREEN RAPID (URINE)on 07-22-2017 AMP Negative Normal NEGATIVE [facility] Comment on above: Performed By: #### U AMIC ####[facility] Iurqcaucsw1347 [address] [place] BAR Negative Normal NEGATIVE [facility] Comment on above: Performed By: #### U AMIC ####[facility] Bdjlbuqtxm9442 [address] [place] BUP Negative Normal NEGATIVE [facility] Comment on above: Performed By: #### U AMIC ####[facility] Rpvjferuys3118 [address] [place] BZO Negative Normal NEGATIVE [facility] Comment on above: Performed By: #### U AMIC ####[facility] Eeaxlohhjx7556 [address] [place] KENNETH Negative Normal NEGATIVE [facility] Comment on above: Performed By: #### U AMIC ####[facility] Imweczxyht8476 [address] [place] CUT-OFFS SEE BELOW Normal [facility] Comment on above: Result Comment: [...] 300 ng/mL Performed By: #### U AMIC ####[facility] Drblmuiqqs[address] [place] [address] DRUG CUT HEADER DRUG CLASS TEST SYSTEM CUT-OFF CONCENTRATIONS ARE FOLLOWS: Normal [facility] Comment on above: Performed By: #### U AMIC ####[facility] Uirvyrwlfz[address] [place] [address] mAMP Negative Normal NEGATIVE [facility] Comment on above: Performed By: #### U AMIC ####[facility] Zhnknuvomm[address] [place] [address] MTD Negative Normal NEGATIVE [facility] Comment on above: Performed By: #### U AMIC ####[facility] Vfivkpgpud[address] [place] [address] OPI Negative Normal NEGATIVE [facility] Comment on above: Performed By: #### U AMIC ####[facility] Tbuqpgmxvj[address] [place] [address] OXY Negative Normal NEGATIVE [facility] Comment on above: Performed By: #### U AMIC ####[facility] Hotwwmlzfw[address] [place] [address] PCP Negative Normal NEGATIVE [facility] Comment on above: Performed By: #### U AMIC ####[facility] Nipgzetssb[address] [place] [address] PPX Negative Normal NEGATIVE [facility] Comment on above: Performed By: #### U AMIC ####[facility] Aorymctvvv3444 [place] [phone] [place] TCA Negative Normal NEGATIVE [facility] Comment on above: Performed By: #### U AMIC ####[facility] Zkvtnavcdz[address] [place], [place] [address]Gerken [place] THC Negative Normal NEGATIVE [facility] Comment on above: Performed By: #### U AMIC ####[facility] Mtvgvqoxol[address] [place], [place] [phone] [place]anna CHLAMYDIA/GONOCOCCUS LOR W/C ONF. (SWAB/Uon 06-28-2017 Chlamydia Trach LOR Negative Normal Negative [facility] Comment on above: Performed By: #### U AMIC ####[facility] Cnkwhhtvob[address] [place] [address] Jovanna N. Gonorrhoeae LOR Negative Normal Negative [facility] Comment on above: Performed By: #### U AMIC ####[facility] Vncvzxnmjy[address] [place], [place] [address]Gerken [place] CBC AUTO DIFFon 06-27-2017 Basophils Auto #/vol (Bld) 0.0 103/ul Normal 0.0-0.1 [facility] Comment on above: Performed By: #### U AMIC ####[facility] Ocbizcpgpf[address] [place], [place] [address]Gerken [place] Basophils/100 WBC Auto (Bld) 0.2 % Normal 0.2-2.0 [facility] Comment on above: Performed By: #### U AMIC ####[facility] Hztfugtbal804[address] [place], [place] [address]Gerken [place] Eosinophils 0.1 103/ul Normal 0.0-0.7 [facility] Comment on above: Performed By: #### U AMIC ####[facility] Ckdbsjozsa[address] [place], [place] [address]Ger[address] [place] Eosinophils/100 leukocytes 1.2 % Normal 0.9-7.0 [facility] Comment on above: Performed By: #### U AMIC ####[facility] Devlqceiwy1517 [address] [place] Erythrocyte distribution width Auto Ratio (RBC) 12.9 % Normal 11.0-15.0 [facility] Comment on above: Performed By: #### U AMIC ####[facility] Yzgfmmgpog5172 [place] [phone] [place] Erythrocytes (RBC) 3.47 106/ul Critically low 4.20-5.40 [facility] Comment on above: Performed By: #### U AMIC ####[facility] Ukqlzlqlaq1701 [place] [phone] [place] Hematocrit (HCT) 30.6 % Critically low 36.0-48.0 [facility] Comment on above: Performed By: #### U AMIC ####[facility] Uleafvhkge25[address] [place], [place] [address]Ger[address] [place] Hemoglobin mass conc (Bld) 10.1 g/dL Critically low 12.0-16.0 [facility] Comment on above: Performed By: #### U AMIC ####[facility] Dxjsbktfos[address] [place], [place] [address]Gerken [place] IG # 0.03 10e3/ul Normal 0.00-0.03 [facility] Comment on above: Performed By: #### U AMIC ####[facility] Sywtadthym[address] [place] [address] Jov[place] IG % 0.3 % Normal 0.0-0.5 [facility] Comment on above: Performed By: #### U AMIC ####[facility] Qoeiwgkdiu7202 [place] [address] Lymphocytes 1.6 103/ul Normal 1.2-3.8 [facility] Comment on above: Performed By: #### U AMIC ####[facility] Wersjjyhpx[address] [place], [place] [address]Ger[address] [place] Lymphocytes/100 leukocytes 17.3 % Critically low 20.5-60.0 [facility] Comment on above: Performed By: #### U AMIC ####[facility] Bkoiofdhag[address] [place], [place] [address]Ger[address] [place] MANUAL DIFF REQ NO Normal [facility] Comment on above: Performed By: #### U AMIC ####[facility] Uuarundwfk7830 [place] [phone] MCH 29.1 pg Normal 26.7-34.0 [facility] Comment on above: Performed By: #### U AMIC ####[facility] Kcnlnnktlv4101 [address] [place] MCHC mass conc (RBC) 33.0 g/dL Normal 29.9-35.2 [facility] Comment on above: Performed By: #### U AMIC ####[facility] Bdsbsvqoxy9790 [address] [place] MCV 88.2 fL Normal 81.0-99.0 [facility] Comment on above: Performed By: #### U AMIC ####[facility] Zyobzdsojo5183 [address] [place] Monocytes 0.7 103/ul Normal 0.3-0.8 [facility] Comment on above: Performed By: #### U AMIC ####[facility] Flzeoxllia4509 [address] [place] Monocytes/100 leukocytes 7.7 % Normal 1.7-12.0 [facility] Comment on above: Performed By: #### U AMIC ####[facility] Qtpffseezf8612 [address] [place] Neutrophils 6.6 103/ul Critically high 1.4-6.[address] [facility] Comment on above: Performed By: #### U AMIC ####[facility] Nmuycsgekx5020 [address] [place] Neutrophils/100 WBC Auto (Bld) 73.3 % Normal 43.0-75.0 [facility] Comment on above: Performed By: #### U AMIC ####[facility] Vfnnpprcby9721 [place] [phone] [place] Platelet mean volume (PMV) 10.4 fL Normal 9.5-13.5 [facility] Comment on above: Performed By: #### U AMIC ####[facility] Mazjjgwnar8553 [place] [phone] [place] Platelets 235 103/ul Normal 150-450 [facility] Comment on above: Performed By: #### U AMIC ####[facility] Dsiqdfakel8393 [place] [phone] [place] WBC (Leukocytes) 9.1 103/ul Normal 4.0-11.[address] [facility] Comment on above: Performed By: #### U AMIC ####[facility] Fjjqchxjvf[address] [place] [address] Jovanna GROUP B STREPTon 06-25-2017 GBS Performed by [facility] , final report to follow Normal NEG FOR GBS [facility] Comment on above: Performed By: #### U AMIC ####[facility] Qwgvezhdwt[address] [place] [address] Jov[place] CBC AUTO DIFFon 05-16-2017 Basophils Auto #/vol (Bld) 0.0 103/ul Normal 0.0-0.1 [facility] Comment on above: Performed By: #### P REGQNT ####[facility] Rvropmhejx[address] [place] [address] J[place] Basophils/100 WBC Auto (Bld) 0.2 % Normal 0.2-2.0 [facility] Comment on above: Performed By: #### P REGQNT ####[facility] Ayhujgsibt[address] [place] [address] [place] Eosinophils 0.1 103/ul Normal 0.0-0.7 [facility] Comment on above: Performed By: #### P REGQNT ####[facility] Yqbjvtgzpw[address] [place] [address] [place] Eosinophils/100 leukocytes 0.7 % Critically low 0.9-7.0 [facility] Comment on above: Performed By: #### P REGQNT ####[facility] Vxhgkvrngn[address] [place] [address] J[place] Erythrocyte distribution width Auto Ratio (RBC) 12.6 % Normal 11.0-15.0 [facility] Comment on above: Performed By: #### P REGQNT ####[facility] Awkxdgollj9[address] [place] [address] J[place] Erythrocytes (RBC) 3.42 106/ul Critically low 4.20-5.40 [facility] Comment on above: Performed By: #### P REGQNT ####[facility] Oelrvkbrce[address] [place] [address] J[place] Hematocrit (HCT) 30.4 % Critically low 36.0-48.0 [facility] Comment on above: Performed By: #### P REGQNT ####[facility] [address]oz[address]yvqkp[address] [place] [address] J[place] Hemoglobin mass conc (Bld) 10.3 g/dL Critically low 12.0-16.0 [facility] Comment on above: Performed By: #### P REGQNT ####[facility] Zofoumrged[address] [place] [address] Jovanna IG # 0.08 10e3/ul Critically high 0.00-0.03 [facility] Comment on above: Performed By: #### P REGQNT ####[facility] Xrkqdgsqam[address] [place] [address] Jovanan IG % 0.6 % Critically high 0.0-0.5 [facility] Comment on above: Performed By: #### P REGQNT ####[facility] Utscpuoxzr[address] [place] [address] [place] Lymphocytes 1.2 103/ul Normal 1.2-3.8 [facility] Comment on above: Performed By: #### P REGQNT ####[facility] Afhjewpdvv[address] [place] [address] [place] Lymphocytes/100 leukocytes 9.3 % Critically low 20.5-60.0 [facility] Comment on above: Performed By: #### P REGQNT ####[facility] Tegjrgmfat[address] [place] [address] Jov[place] MANUAL DIFF REQ NO Normal [facility] Comment on above: Performed By: #### P REGQNT ####[facility] Xqwlqmwjmf9252 [place] [phone] [place]ug[place] MCH 30.1 pg Normal 26.7-34.0 [facility] Comment on above: Performed By: #### P REGQNT ####[facility] Olcokzndri4292 [place] [phone] MCHC mass conc (RBC) 33.9 g/dL Normal 29.9-35.2 [facility] Comment on above: Performed By: #### P REGQNT ####[facility] Thecutavvc6403 [place] [phone] [place] MCV 88.9 fL Normal 81.0-99.0 [facility] Comment on above: Performed By: #### P REGQNT ####[facility] Qpmllgjnen1378 [address] [place] Monocytes 0.7 103/ul Normal 0.3-0.8 [facility] Comment on above: Performed By: #### P REGQNT ####[facility] Leclhtxdua8276 [address] [place] Monocytes/100 leukocytes 5.3 % Normal 1.7-12.0 [facility] Comment on above: Performed By: #### P REGQNT ####[facility] Pnyuivdtyn2178 [place] [phone] [place] Neutrophils 10.5 103/ul Critically high 1.4-6.5 [facility] Comment on above: Performed By: #### P REGQNT ####[facility] Ozewqrhuyb2808 [place] [phone] Nugent Neutrophils/100 WBC Auto (Bld) 83.9 % Critically high 43.0-75.0 [facility] Comment on above: Performed By: #### P REGQNT ####[facility] Besfsmvbfu5202 [place] [phone] Nugent Platelet mean volume (PMV) 9.0 fL Critically low 9.5-13.5 [facility] Comment on above: Performed By: #### P REGQNT ####[facility] Drnsqxfswl8837 [place] [address]Angela Nugent Platelets 233 103/ul Normal 150-450 [facility] Comment on above: Performed By: #### P REGQNT ####[facility] Bzerivufot0480 [place] [address]Alberto Nugent WBC (Leukocytes) 12.6 103/ul Critically high 4.0-11.0 [facility] Comment on above: Performed By: #### P REGQNT ####[facility] Sihtnfdtpp6996 [place], [place] [address]JqmmpwAlberto Nugent GLUCOSE - 1HRon 05-16-2017 Glucose mass conc 112 mg/dL Critically high 74-106 [facility] Comment on above: Performed By: #### P REGQNT ####[facility] Gjcycrpljt5645 [place] [address]Alberto Nugent US PREG INCOMPLETE ANATOMYon 04-25-2017 US PREG INCOMPLETE ANATOMY [address] [place] [address] Patient: LINNEA CAPELLAN Exam Date: 04/25/2017DOB: 1995 Gender:F : CHAVEZ BACA . Admission #: [id number] : Order #: [id number] HERE TO VIEW EXAM RADIOLOGY REPORT PROCEDURE: [...] Herzog M.D. on 04/25/2017 at 11:42 Normal [facility] US PREG ANATOMY SINGLEon US PREG ANATOMY SINGLE [address] [place] [address] Patient: LINNEA CAPELLAN Exam Date: 03/10/2017DOB: 1995 Gender:F : CHAVEZ BACA . Admission #: [id number] : Order #: [id number] HERE TO VIEW EXAM RADIOLOGY REPORT PROCEDURE: [...] Barbosa M.D. on 03/10/2017 at 12:18 Normal [facility] PAP ACOG PANEL 4: 21 to 29on 03-03-2017 Age Gdln ACOG Testing - Normal [facility] Comment on above: Performed By: #### P REGQNT ####[facility] [address] [place] [address] Chlamydia, Nuc. Acid Amp Negative Normal Negative [facility] Comment on above: Result Comment: Perf ormed at: =G Performed By: #### P REGQNT ####[facility] [address] [place], [place] [address] DIAGNOSIS: Comment Normal [facility] Comment on above: Result Comment: NEGA TIVE FOR INTRAEPITHELIAL LESION AND MALIGNANCY.Performed at: WB Performed By: #### P REGQNT ####[facility] [address] [place] [address] J[place]anna Gonococcus, Nuc. Acid Amp Negative Normal Negative [facility] Comment on above: Result Comment: Perf ormed at: =G Performed By: #### P REGQNT ####[facility] [address] [place], [place] [address] Methodology: Comment Normal [facility] Comment on above: Result Comment: This liquid based ThinPrep(R) pap test was screened with theuse of an image guided system.Performed at: WB Performed By: #### P REGQNT ####[facility] [address] [place] [address] Note: Comment Normal [facility] Comment on above: Result Comment: The Pap smear is a screening test designed to aid in the detection ofpremalignant and malignant conditions of the uterine cervix. It is not adiagnostic procedure and should not be used as the sole means of detectingcervical cancer. Both false-positive and false-negative reports do occur. .Performed at: WB Performed By: #### P REGQNT ####[facility] [address] [place] [address] Performed by: Comment Normal [facility] Comment on above: Result Comment: Florentin Collins, Pumper Gager (ASCP)Performed at: WB Performed By: #### P REGQNT ####[facility] [address] [place] [address] Reflex Criteria: Comment Normal [facility] Comment on above: Result Comment: The HPV DNA reflex criteria were not met with this specimen resulttherefore, no HPV testing was performed. .Performed at: WB Performed By: #### P REGQNT ####[facility] [address] [place] [address] Specimen adequacy: Comment Normal [facility] Comment on above: Result Comment: Sati sfactory for evaluation. Endocervical and/or squamous metaplasticcells (endocervical component) are present.Performed at: WB Performed By: #### P REGQNT ####[facility] [address] [place] [address] Trich vag by LOR Negative Normal Negative [facility] Comment on above: Result Comment: Perf ormed at: =G Performed By: #### P REGQNT ####[facility] [address] [place] [address] . . Normal [facility] Comment on above: Result Comment: Perf ormed at: WB Performed By: #### P REGQNT ####[facility] [address] [place] [address] HEP B SURFACE AGon 8 BSA (Body Surface Area) Negative Normal Negative [facility] Comment on above: Performed By: #### H EPBSUR ####[facility] [address] [place] [address] HEPATITIIS C VIRUS ANTIBODYo n 02-27-2017 Hep C Virus Ab <0.1 Normal 0.0-0.9 [facility] Comment on above: Result Comment: Nega tive: < 0.8 Indeterminate: 0.8 - 0.9 Positive: > 0.9 . The CDC recommends that a positive HCV antibody result be followed up with a HCV Nucleic Acid Amplification test (150110). Performed By: #### H CV ####[facility] [address] [place] [address] [place] HGB(ELECTP) FRACTION PROFILE on 02-27-2017 Hemoglobin mass conc (Bld) 3.0 % Normal 1.8-3.2 [facility] Comment on above: Result Comment: Pl ease note reference interval change Performed By: #### P REGQNT ####[facility] [address] [place] [address] J[place]anna Hemoglobin mass conc (Bld) 0.0 % Normal 0.0 [facility] Comment on above: Performed By: #### P REGQNT ####[facility] [address] [place] [address] Jovanna Hemoglobin mass conc (Bld) Negative Normal Negative [facility] Comment on above: Performed By: #### P REGQNT ####[facility] [address] [place] [address] Jovanna Hemoglobin mass conc (Bld) 0.5 % Normal 0.0-2.0 [facility] Comment on above: Result Comment: Pl ease note reference interval change Performed By: #### P REGQNT ####[facility] [address] [place] [address] Jovanna Hemoglobin mass conc (Bld) 96.5 % Normal 96.4-98.8 [facility] Comment on above: Result Comment: Pl ease note reference interval change Performed By: #### P REGQNT ####[facility] [address] [place] [address] Jovanna Hemoglobin mass conc (Bld) Normal [facility] Comment on above: Performed By: #### P REGQNT ####[facility] [address] [place] [id number] Nugent Interpretation Comment Normal [facility] Comment on above: Result Comment: Norm al adult hemoglobin present. Performed By: #### P REGQNT ####[facility] [address] [place] [id number] Nugent RPR QUANTon 02-27-2017 Rapid Plasma Reagin, Quant Non Reactive Normal NonRea<1:1 [facility] Comment on above: Performed By: #### P REGQNT ####[facility] [address] [place] [address] [place] VARICELLA IGG ABon 8 Varicella Zoster IgG <135 Critically low Immune >165 [facility] Comment on above: Result Comment: Nega tive <135 Equivocal 135 - 165 Positive >165 A positive result generally indicates exposure to the pathogen or administration of specific immunoglobulins, but it is not indication of active infection or stage of disease. Performed By: #### P REGQNT ####[facility] [address] [place] [address] Jov[place] TYPE AND SCREENon 02-26-2017 TYPE AND SCREEN Negative Normal [facility] Comment on above: Performed By: #### T NS ####[facility] [address] [place] [address] [place] CBC AUTO DIFFon 02-25-2017 Basophils Auto #/vol (Bld) 0.0 103/ul Normal 0.0-0.1 [facility] Comment on above: Performed By: #### C BC ####[facility] [address] [place] [address] J[place] Basophils/100 WBC Auto (Bld) 0.3 % Normal 0.2-2.0 [facility] Comment on above: Performed By: #### C BC ####[facility] [address] [place] [address] J[place] Eosinophils 0.1 103/ul Normal 0.0-0.7 [facility] Comment on above: Performed By: #### C BC ####[facility] [address] [place] Eosinophils/100 leukocytes 1.2 % Normal 0.9-7.0 [facility] Comment on above: Performed By: #### C BC ####[facility] U[address] [place] Erythrocyte distribution width Auto Ratio (RBC) 13.6 % Normal 11.0-15.0 [facility] Comment on above: Performed By: #### C BC ####[facility] U[address]ph[address] [place] Erythrocytes (RBC) 3.59 106/ul Critically low 4.20-5.40 [facility] Comment on above: Performed By: #### C BC ####[facility] [address] [place], [place] [address]Gerken [place] Hematocrit (HCT) 32.3 % Critically low 36.0-48.0 [facility] Comment on above: Performed By: #### C BC ####[facility] [address] [place] [address] Jovanna Hemoglobin mass conc (Bld) 10.7 g/dL Critically low 12.0-16.0 [facility] Comment on above: Performed By: #### C BC ####[facility] [address] [place], [place] [address]Gerken Jovanna IG # 0.11 10e3/ul Critically high 0.00-0.03 [facility] Comment on above: Performed By: #### C BC ####[facility] [address] [place] [address] Jovanna IG % 1.2 % Critically high 0.0-0.5 [facility] Comment on above: Performed By: #### C BC ####[facility] [address] [place], [place] [address]Gerken [place] Lymphocytes 1.4 103/ul Normal 1.2-3.8 [facility] Comment on above: Performed By: #### C BC ####[facility] [address] [place], [place] [address]Gerken [place] Lymphocytes/100 leukocytes 15.2 % Critically low 20.5-60.0 [facility] Comment on above: Performed By: #### C BC ####[facility] [address] [place] [id number] [place] MANUAL DIFF REQ NO Normal [facility] Comment on above: Performed By: #### C BC ####[facility] [address] [place] [phone] [place] MCH 29.8 pg Normal 26.7-34.0 [facility] Comment on above: Performed By: #### C BC ####[facility] [address] [place] [phone] [place] MCHC mass conc (RBC) 33.1 g/dL Normal 29.9-35.2 [facility] Comment on above: Performed By: #### C BC ####[facility] [address] [place] [address] Jovanna MCV 90.0 fL Normal 81.0-99.0 [facility] Comment on above: Performed By: #### C BC ####[facility] [address] [place] [address] J[place] Monocytes 0.5 103/ul Normal 0.3-0.8 [facility] Comment on above: Performed By: #### C BC ####[facility] [address] [place] [address] Jov[place] Monocytes/100 leukocytes 5.7 % Normal 1.7-12.0 [facility] Comment on above: Performed By: #### C BC ####[facility] [address]dpfo[address] [place] [phone] [place] Neutrophils 7.2 103/ul Critically high 1.4-6.[address] [facility] Comment on above: Performed By: #### C BC ####[facility] Wn[address]ck[address] [place] [phone] [place] Neutrophils/100 WBC Auto (Bld) 76.4 % Critically high 43.0-75.0 [facility] Comment on above: Performed By: #### C BC ####[facility] [address] [place], [place] [address]RmerkoAlberto Nugent Platelet mean volume (PMV) 10.1 fL Normal 9.5-13.5 [facility] Comment on above: Performed By: #### C BC ####[facility] Z[address]ov[address]uf37[address] [place], [place] [address]YgqfpwAlberto Nugent Platelets 248 103/ul Normal 150-450 [facility] Comment on above: Performed By: #### C BC ####[facility] [address]v65[address] [place], [place] [address]Ocvvmn Karen WBC (Leukocytes) 9.5 103/ul Normal 4.0-11.[address] [facility] Comment on above: Performed By: #### C BC ####[facility] Feyjrjzpbg04[address] [place], [place] [address]IfdgcwAlberto Nugent HIV 1 AND 2 ABon 02-25-2017 HIV 1 AND 2 AB Negative Normal NEGATIVE [facility] Comment on above: Performed By: #### P REGQNT ####[facility] [address] [place] [address]Nmmjlb Karen PREG QUANT HCGon 02-25-2017 HCG Qn SEE BELOW Normal [facility] Comment on above: Result Comment: 5-50 0-1 WEEK 40-300 1-2 WEEKS 100-1,000 2-3 WEEKS 500-6,000 3-4 WEEKS 5,000-200,000 1-2 MONTHS 10,000-100,000 2-3 MONTHS 3,000-50,000 2ND TRIMESTER 1,000-50,000 3RD TRIMESTER Performed By: #### P REGQNT ####[facility] [address]yl[address] [place], [place] [address]Wkxipr Jovanna HCG QUANT 33405.00 mIU/mL Normal [facility] Comment on above: Performed By: #### P REGQNT ####[facility] T[address]fe[address] [place], [place] [address]QssrzgAlberto Nugent RUBELLA AB IGGon 02-25-2017 RUB HEADER SEE BELOW Normal [facility] Comment on above: Result Comment: or=1 5.0 IU/mL POSITIVE WHO considers levels >or= 10.0 IU/mL to be positive immune status Performed By: #### P REGQNT ####[facility] N[address]jtnmppj2466 [place], [place] [address]WhcdzhAlberto Nugent RUB IGG 6.8 IU/mL Normal [facility] Comment on above: Performed By: #### P REGQNT ####[facility] Rjx[address]eh[address]fl[address] [place], [place] [address]NiyomfAlberto Nugent US PREG DATING >14WEEKSon US PREG DATING >14WEEKS [address] [place] [address] Patient: LINNEA CAPELLAN Exam Date: 02/19/2017DOB: 1995 Gender:F : CHAVEZ BACA . Admission #: [id number] : Order #: [id number] HERE TO VIEW EXAM RADIOLOGY REPORT PROCEDURE: [...] of 18 weeks, 3 days Dictated by: rTessa Herzog M.D. on 02/19/2017 at 09:50 Approved by: Tressa Herzog M.D. on 02/19/2017 at 09:51 Normal [facility] CULTURE URINEon 02-14-2017 CULTURE URINE Culture Observations : final, scanned results to follow in hpf Normal [facility] Comment on above: Performed By: #### C XUR ####[facility] Dzux[address] [place] UA RANDOM W/MICROSCOPICon AMORPHOUS CRYSTALS FEW Normal [facility] Comment on above: Performed By: #### U AMIC ####[facility] Gyokqrkajq[address]387 [address] [place] Bilirubin (total) Negative Normal NEGATIVE [facility] Comment on above: Performed By: #### U AMIC ####[facility] Didjsttrou2286 [address] [place] BLOOD Negative Normal NEGATIVE [facility] Comment on above: Performed By: #### U AMIC ####[facility] Ndosen[address]efc[address] [place] CAST NONE SEEN Normal NONE SEEN [facility] Comment on above: Performed By: #### U AMIC ####[facility] Egrhw[address]zynh[address] [place] Erythrocytes (RBC) 0-2 Normal 0-2 [facility] Comment on above: Performed By: #### U AMIC ####[facility] Ocmp[address]uyel[address]84 [address] [place] Glucose mass conc Negative Normal NEGATIVE [facility] Comment on above: Performed By: #### U AMIC ####[facility] Efcbijhcwp1326 [address] [place] MUCOUS SMALL Normal NONE SEEN [facility] Comment on above: Performed By: #### U AMIC ####[facility] Q[address]icuyctxr2042 [place], [place] [address]Lgocsf Jovanna pH of blood 7.5 [pH] Normal 5-9 [facility] Comment on above: Performed By: #### U AMIC ####[facility] [address]mnt[address]hbvh0048 [place] [id number] [place] Protein Negative Normal [facility] Comment on above: Performed By: #### U AMIC ####[facility] Cfefhoiwoe1822 [place] [id number] [place] SPEC GRAVITY 1.020 Normal 1.005-<=1.025 [facility] Comment on above: Performed By: #### U AMIC ####[facility] Kbosgtlyba7768 [place] [phone] [place] Urine, bacteria in sediment TRACE Normal NONE SEEN [facility] Comment on above: Performed By: #### U AMIC ####[facility] [address]rkbqwavc9720 [place] [phone] [place]ovanna Urine, clarity SL CLOUDY Normal [facility] Comment on above: Performed By: #### U AMIC ####[facility] Ojlowdobev5931 [place] [phone] [place] Urine, color LT. YELLOW Normal YELLOW [facility] Comment on above: Performed By: #### U AMIC ####[facility] K[address]pcrik0167 [place] [phone] [place] Urine, crystals in sediment SEEN Normal NONE SEEN [facility] Comment on above: Performed By: #### U AMIC ####[facility] [address] [place] [phone] [place] Urine, epithelial cells in sediment FEW Normal [facility] Comment on above: Performed By: #### U AMIC ####[facility] Z[address]awwnyabj3647 [place] [phone] [place] Urine, ketones presence Negative Normal NEGATIVE [facility] Comment on above: Performed By: #### U AMIC ####[facility] [address]jfiar0748 [place], [place] [address]Xnfiak Karen Urine, nitrite presence Negative Normal NEGATIVE [facility] Comment on above: Performed By: #### U AMIC ####[facility] U[address]psxevn0114 [place], [place] [address]Hpdapz Karen Urine, urobilinogen 0.2 {Rony'U}/dL Normal [facility] Comment on above: Performed By: #### U AMIC ####[facility] Nzwdiafpkr4676 [place] [id number] Nugent WBC (Leukocytes) 0-2 Normal NONE SEEN [facility] Comment on above: Performed By: #### U AMIC ####[facility] Dbrtpkkzco4454 [place] [id number] Nugent WBC (Leukocytes) Negative Normal NEGATIVE [facility] Comment on above: Performed By: #### U AMIC ####[facility] Clv[address]xwjgf2055 [place] [id number] [place]anna ABO AND RH TYPEon 02-06-2017 ABO AND RH TYPE Positive Normal [facility] Comment on above: Performed By: #### A ALYCIA ####[facility] [address]nxwsje1389 [place] [phone] Nugent PREG QUANT HCGon 02-06-2017 HCG Qn SEE BELOW Normal [facility] Comment on above: Result Comment: 5-50 0-1 WEEK 40-300 1-2 WEEKS 100-1,000 2-3 WEEKS 500-6,000 3-4 WEEKS 5,000-200,000 1-2 MONTHS 10,000-100,000 2-3 MONTHS 3,000-50,000 2ND TRIMESTER 1,000-50,000 3RD TRIMESTER Performed By: #### P REGQNT ####[facility] Bhbjigmmxu9829 [place] [id number] [place]ovanna HCG QUANT 26526.00 mIU/mL Normal [facility] Comment on above: Performed By: #### P REGQNT ####[facility] [address]39[address] [place], [place] [address]Wyigkt Karen Encounters Encounter Date Encounter Type Care [...] 09-15-2021 End: 09-15-2021 ambulatory Oly Marie Other [facility] Other Start: 09-15-2021 Nursing evaluation o f patient and report Oly Marie [facility] Start: 07-28-2017 [...] [employer] Payers Date Payer Category Payer Unknown [id number] 2022 Unknown [id number] 1995 Unknown [id number] 2.16.84 [id number] 1995 Unknown [id number] 2.16.84 [id number] 1995 Unknown [id number] 2.16.84 [id number] 1995 Unknown [id number] [id number] .[id number] 1993 Unknown [id number] 2.16.840 .[id number] 1993 Unknown [id number] 2.16.840 .[id number] 1993 Unknown [id number] [id number] .[id number] 1961 Private Health Insurance [id number] Social History Date Type Detail Facility Sex Assigned At [facility] Other Evaluation note 09-15-2021 Note Date & Type Note Facility 09-15-2021 Evaluation note Encounter Date Diagnosis Assessment Notes Sep, Cough, unspecified type (ICD-10 - R05.9) [facility] Other Summary Purpose Family History No Family History Records FoundNo Family History Records Found Advance Directives No Advanced Directives Records FoundNo Advanced Directives Records Found Additional Source Comments INFORMATION SOURCE (unrecogn ized section and content) DATE CREATED AUTHOR 08/11/2017 [facility] DATE CREATED AUTHOR AUTHOR'S SHANNON ALCARAZ 03/05/2023 [facility] FOR RECORDS PERTAINING TO PATIENTS WHO ARE [...] BE BASED ON THE PRIMARY CLINICAL RECORDS. [employer] provides no warranty or guarantee of the accuracy or completeness of information in this document.
[2023-03-05 18:43] LABS: Bilirubin Urine NEGATIVE (NEGATIVE); Blood Urine NEGATIVE (NEGATIVE); Clarity Urine CLEAR (CLEAR); Color Urine YELLOW (YELLOW); Glucose Urine UA NEGATIVE (NEGATIVE); Ketones Urine NEGATIVE (NEGATIVE); Leukocyte Esterase Urine NEGATIVE (NEGATIVE); Nitrite Urine NEGATIVE (NEGATIVE); Protein Urine NEGATIVE (NEG/TRACE); Specific Gravity Urine 1.015 (1.005-1.025); Urobilinogen Urine 0.2 EU/dL (0.2-1.0)
[2023-03-05 18:52] LABS: Urine Microscopic Indicated NO
[2023-03-05 18:58] LABS: Amphetamine Screen Urine NEGATIVE (NEGATIVE); Barbiturates Screen Urine NEGATIVE (NEGATIVE); Benzodiazepines Screen Urine NEGATIVE (NEGATIVE); Buprenorphine Screen Urine NEGATIVE (NEGATIVE); Cannabinoid Screen Urine NEGATIVE (NEGATIVE); Cocaine Screen Urine NEGATIVE (NEGATIVE); Methadone Screen Urine NEGATIVE (NEGATIVE); Methamphetamines Screen Urine NEGATIVE (NEGATIVE); Opiate Screen Urine NEGATIVE (NEGATIVE); Oxycodone Screen Urine NEGATIVE (NEGATIVE); Phencyclidine Screen Urine NEGATIVE (NEGATIVE); Tricyclic Antidepressant Urine NEGATIVE (NEGATIVE)
[2023-03-05] MEDS: 0.9 % SODIUM CHLORIDE 1,000 ML 125 ML IV (19:03)
[2023-03-05] MEDS: AMPICILLIN SODIUM 2,000 MG in 0.9 % SODIUM CHLORIDE 100 ML 200 MG IV (19:04)
[2023-03-05 19:48] LABS: Hematocrit 31.1 % (36.0-48.0); Hemoglobin 10.3 g/dL (12.0-16.0); Mean Corpuscular HGB Conc 33.1 g/dL (29.9-35.2); Mean Corpuscular Hemoglobin 28.9 pg (26.7-34.0); Mean Corpuscular Volume 87.4 fL (81.0-99.0); Mean Platelet Volume 10.1 fL (9.5-13.5); Platelet Count 279 10^3/uL (150-450); Red Blood Count 3.56 10^6/uL (4.20-5.40); Red Cell Distribution Width 12.6 % (11.0-15.0); White Blood Count 11.9 10^3/uL (4.0-11.0)
--- NOTE | 2023-03-05 20:11 | W.PC.ACHO ---
Registration Status: ADM IN Primary Language: Preferred Language: Report given to Mickey Simon RN at 0383. Active Medications Generic Name Dose Route Start Last Admin Trade Name Freq PRN Reason Stop Dose Admin Carboprost Tromethamine 250 mcg 03/05/23 18:25 Carboprost Tromethamine 250 Mcg/Ml 1 Ml Vial IM 03/07/23 18:25 Q15M PRN Bleeding Diphenhydramine HCl 25 mg 03/05/23 19:14 Diphenhydramine Hcl 50 Mg/Ml (1ml) Vial IV 03/06/23 19:16 Q6H PRN Itching Ephedrine Sulfate 5 mg 03/05/23 19:14 Ephedrine Sulfate 50 Mg/Ml Vial IV 03/06/23 19:16 Q5M PRN Blood Pressure - Low Fentanyl Citrate 100 mcg 03/05/23 19:14 Fentanyl Citrate/Pf 100 Mcg/2 Ml Vial EPIDURAL ONCE PRN epidural Fentanyl Citrate 100 mcg 03/05/23 19:14 Fentanyl Citrate/Pf 100 Mcg/2 Ml Vial EPIDURAL ONCE PRN epidural Sodium Chloride 1,000 mls @ 125 mls/hr 03/05/23 18:30 03/05/23 19:03 Sodium Chloride 0.9% 1,000 Ml IV 125 mls/hr .Q8H STEVE Administration Ampicillin 1,000 mg/ Sodium 50 mls @ 100 mls/hr 03/05/23 23:00 Chloride IV Q4H STEVE Oxytocin/Sodium Chloride 20 units in 1,000 mls @ 125 mls/hr 03/05/23 18:30 Pitocin 20 Unit/1,000 Ml-Ns IV Q8H PRN POST DELIVERY Sodium Chloride 1,000 mls @ 1,000 mls/hr 03/05/23 19:14 Sodium Chloride 0.9% 1,000 Ml IV 03/05/23 20:13 .Q1H ONE Ropivacaine/Sodium Chloride 400 mg in 200 mls @ 6 mls/hr 03/05/23 19:15 Naropin 0.2% 400 Mg/200 Ml Bag EPIDURAL Q24H STEVE Lidocaine 5 ml 03/05/23 18:25 Lidocaine Viscous 2% 15 Ml Solution TOPICAL ONCE PRN Pain Lidocaine 1 ml 03/05/23 18:25 Lidocaine Hcl 1% 200 Mg/20 Ml Mdv INJ ONCE PRN Pain Lidocaine 5 ml 03/05/23 19:14 Lidocaine Hcl 2% Pf 100 Mg/5 Ml Vial INJ 03/06/23 19:16 Q1H PRN Pain Methylergonovine Maleate 0.2 mg 03/05/23 18:25 Methylergonovine Maleate 0.2 Mg/Ml Ampule IM 03/07/23 18:25 ONCE PRN Uterine Contractility/Contract Methylergonovine Maleate 0.2 mg 03/05/23 18:25 Methylergonovine Maleate 0.2 Mg Tablet PO 03/07/23 18:25 Q4H PRN Uterine Contractility/Contract Misoprostol 600 mcg 03/05/23 18:25 Misoprostol 100 Mcg Tablet PO 03/07/23 18:25 ONCE PRN Uterine Bleeding Misoprostol 800 mcg 03/05/23 18:25 Misoprostol 100 Mcg Tablet SL 03/07/23 18:25 ONCE PRN Uterine Bleeding Misoprostol 1,000 mcg 03/05/23 18:25 Misoprostol 100 Mcg Tablet MN 03/07/23 18:25 ONCE PRN Uterine Bleeding Naloxone HCl 0.4 mg 03/05/23 19:14 Naloxone Hcl 0.4 Mg/Ml Vial IV 03/06/23 19:16 ONCE PRN Respiratory Depression Ondansetron HCl 4 mg 03/05/23 18:25 Ondansetron Pf 4 Mg/2 Ml Vial IV Q6H PRN Nausea And Vomiting Ondansetron HCl 4 mg 03/05/23 18:25 Ondansetron 4 Mg Rapdis Tablet SL Q6H PRN Nausea And Vomiting Oxytocin 10 unit 03/05/23 18:25 Oxytocin 10 Unit/Ml Vial IM 03/07/23 18:25 ONCE PRN Bleeding Diet Category Date Time Status Regular Consistency Diet Diet 03/05/23 18:26 Active Consults Category Date Time Status Consult to Anesthesiology Routine Cons 03/05/23 Ordered IV Insertion/Site Date of IV Line Insertion [ 03/05/23 Short PIV (<1.75 in) 20g right Forearm] IV Insertion Time [Short PIV ( 18:40 <1.75 in) 20g right Forearm]
[2023-03-06] VITALS (37 sets, daily range): BP systolic 87–123; BP diastolic 46–81; PULSE 59–90; RESP 16; TEMP 36.1–36.6
[2023-03-06] MEDS: AMPICILLIN SODIUM 1,000 MG in 0.9 % SODIUM CHLORIDE 50 ML 100 MG IV ×2 (00:02→04:13)
[2023-03-06] MEDS: OXYTOCIN/0.9 % SODIUM CHLORIDE 10 UNITS/500 ML PLAST..BAG 6 UNIT IV (04:00)
[2023-03-06] MEDS: 0.9 % SODIUM CHLORIDE 1,000 ML 125 ML IV (04:00)
[2023-03-06] MEDS: ROPIVACAINE HCL/PF 400 MG/200 ML PREMIX 10 MG EPIDURAL (07:19)
--- NOTE | 2023-03-06 08:14 | PM.OBPRCVD ---
Procedure Intrapartal events: None Induction method: none Delivery augmentation: pitocin Delivery monitor: external FHT and external uterine Route of delivery: Episiotomy Description: left mediolateral Laceration description: perineal - 2nd degree Delivery repair: Vicryl Estimated blood loss (mL): 200 Anesthesia type: Epidural Disposition: floor Infant Delivery date: 03/06/23 Gender: male presentation: vertex Placental delivery description: Spontaneous cord description: 3 Vessels
[2023-03-06] MEDS: OXYTOCIN/0.9 % SODIUM CHLORIDE 20 UNITS/1,000 ML PLAST..BAG 125 UNIT IV (12:14)
[2023-03-06] MEDS: BENZOCAINE/MENTHOL 85 GRAM SPRAY BOTTLE 1 APPLIC TOPICAL (12:14)
[2023-03-06] MEDS: GLYCERIN/WITCH HAZEL PADS 1 PAD TOPICAL (12:15)
[2023-03-06] MEDS: IBUPROFEN 600 MG TABLET PO ×2 (14:20→20:29)
--- NOTE | 2023-03-06 19:12 | W.PC.ACHO ---
Registration Status: ADM IN Primary Language: Preferred Language: Italian Active Medications Generic Name Dose Route Start Last Admin Trade Name Tennille PRN Reason Stop Dose Admin Acetaminophen 650 mg 03/06/23 08:15 Acetaminophen 325 Mg Tablet PO Q6H PRN Mild Pain Al Hydroxide/Mg Hydroxide 2,400 mg 03/06/23 08:15 Magnesium Hydroxide 2,400 Mg/10 Ml Oral.Susp PO Q6H PRN Dyspepsia Benzocaine/Menthol 1 applic 03/06/23 08:15 03/06/23 12:14 Benzocaine/Menthol 85 Gram [place] Bottle TOPICAL 1 applic Q2H PRN Administration Pain Carboprost Tromethamine 250 mcg 03/05/23 18:25 Carboprost Tromethamine 250 Mcg/Ml 1 Ml Vial IM 03/07/23 09:00 Q15M PRN Bleeding Diphtheria/Pertussis/Tetanus Vacc 0.5 ml 03/08/23 09:00 Adacel Diph,Pertuss(Acell),Tet Vac/Pf 0.5 Ml Adult Syringe IM 03/08/23 09:01 .ONCE ONE Docusate Sodium 100 mg 03/07/23 09:00 Docusate Sodium 100 Mg Capsule PO BID STEVE Sodium Chloride 1,000 mls @ 125 mls/hr 03/05/23 18:30 03/06/23 12:00 Sodium Chloride 0.9% 1,000 Ml IV Infused .Q8H STEVE Infusion Ibuprofen 600 mg 03/06/23 08:15 03/06/23 14:20 Ibuprofen 600 Mg Tablet PO 600 mg Q6H PRN Administration Moderate Pain Measles/Mumps/Rubella Vaccine Live 0.5 ml 03/08/23 09:00 Measles,Mumps,Rubella Vacc/Pf 0.5 Ml Vial SQ 03/08/23 09:01 .ONCE ONE Methylergonovine Maleate 0.2 mg 03/05/23 18:25 Methylergonovine Maleate 0.2 Mg/Ml Ampule IM 03/07/23 09:00 ONCE PRN Uterine Contractility/Contract Methylergonovine Maleate 0.2 mg 03/05/23 18:25 Methylergonovine Maleate 0.2 Mg Tablet PO 03/07/23 09:00 Q4H PRN Uterine Contractility/Contract Misoprostol 600 mcg 03/05/23 18:25 Misoprostol 100 Mcg Tablet PO 03/07/23 09:00 ONCE PRN Uterine Bleeding Misoprostol 800 mcg 03/05/23 18:25 Misoprostol 100 Mcg Tablet SL 03/07/23 09:00 ONCE PRN Uterine Bleeding Misoprostol 1,000 mcg 03/05/23 18:25 Misoprostol 100 Mcg Tablet UT 03/07/23 09:00 ONCE PRN Uterine Bleeding Ondansetron HCl 4 mg 03/05/23 18:25 Ondansetron Pf 4 Mg/2 Ml Vial IV Q6H PRN Nausea And Vomiting Ondansetron HCl 4 mg 03/05/23 18:25 Ondansetron 4 Mg Rapdis Tablet SL Q6H PRN Nausea And Vomiting Senna 17.2 mg 03/06/23 20:00 Sennosides 8.6 Mg Tablet PO QHS PRN Constipation Simethicone 80 mg 03/06/23 08:15 Simethicone 80 Mg Tab.Chew PO QID PRN Abdominal Distention Temazepam 15 mg 03/06/23 08:15 Temazepam 15 Mg Capsule PO QHS PRN Sleep Witch July/Glycerin 1 pad 03/06/23 08:15 03/06/23 12:15 Glycerin/Witch July Pads TOPICAL 1 pad Q2H PRN Administration Pain Diet Category Date Time Status Regular Consistency Diet Diet 03/06/23 08:15 Active Neurology Patient orientation (short person,place,time,situation list) Respiratory Oxygen Delivery Method Room Air Oxygen Delivery Method Room Air Renal Bladder Pattern Continent
[2023-03-07 00:51] VITALS: BP 87/52; PULSE 56; TEMP 36.4
--- NOTE | 2023-03-07 05:56 | W.PC.ACHO ---
Registration Status: ADM IN Primary Language: Preferred Language: Turkish Active Medications Generic Name Dose Route Start Last Admin Trade Name Tennille PRN Reason Stop Dose Admin Acetaminophen 650 mg 03/06/23 08:15 Acetaminophen 325 Mg Tablet PO Q6H PRN Mild Pain Al Hydroxide/Mg Hydroxide 2,400 mg 03/06/23 08:15 Magnesium Hydroxide 2,400 Mg/10 Ml Oral.Susp PO Q6H PRN Dyspepsia Benzocaine/Menthol 1 applic 03/06/23 08:15 03/06/23 12:14 Benzocaine/Menthol 85 Gram [place] Bottle TOPICAL 1 applic Q2H PRN Administration Pain Carboprost Tromethamine 250 mcg 03/05/23 18:25 Carboprost Tromethamine 250 Mcg/Ml 1 Ml Vial IM 03/07/23 09:00 Q15M PRN Bleeding Diphtheria/Pertussis/Tetanus Vacc 0.5 ml 03/08/23 09:00 Adacel Diph,Pertuss(Acell),Tet Vac/Pf 0.5 Ml Adult Syringe IM 03/08/23 09:01 .ONCE ONE Docusate Sodium 100 mg 03/07/23 09:00 Docusate Sodium 100 Mg Capsule PO BID STEVE Sodium Chloride 1,000 mls @ 125 mls/hr 03/05/23 18:30 03/06/23 12:00 Sodium Chloride 0.9% 1,000 Ml IV Infused .Q8H STEVE Infusion Ibuprofen 600 mg 03/06/23 08:15 03/06/23 20:29 Ibuprofen 600 Mg Tablet PO 600 mg Q6H PRN Administration Moderate Pain Measles/Mumps/Rubella Vaccine Live 0.5 ml 03/08/23 09:00 Measles,Mumps,Rubella Vacc/Pf 0.5 Ml Vial SQ 03/08/23 09:01 .ONCE ONE Methylergonovine Maleate 0.2 mg 03/05/23 18:25 Methylergonovine Maleate 0.2 Mg/Ml Ampule IM 03/07/23 09:00 ONCE PRN Uterine Contractility/Contract Methylergonovine Maleate 0.2 mg 03/05/23 18:25 Methylergonovine Maleate 0.2 Mg Tablet PO 03/07/23 09:00 Q4H PRN Uterine Contractility/Contract Misoprostol 600 mcg 03/05/23 18:25 Misoprostol 100 Mcg Tablet PO 03/07/23 09:00 ONCE PRN Uterine Bleeding Misoprostol 800 mcg 03/05/23 18:25 Misoprostol 100 Mcg Tablet SL 03/07/23 09:00 ONCE PRN Uterine Bleeding Misoprostol 1,000 mcg 03/05/23 18:25 Misoprostol 100 Mcg Tablet NV 03/07/23 09:00 ONCE PRN Uterine Bleeding Ondansetron HCl 4 mg 03/05/23 18:25 Ondansetron Pf 4 Mg/2 Ml Vial IV Q6H PRN Nausea And Vomiting Ondansetron HCl 4 mg 03/05/23 18:25 Ondansetron 4 Mg Rapdis Tablet SL Q6H PRN Nausea And Vomiting Senna 17.2 mg 03/06/23 20:00 Sennosides 8.6 Mg Tablet PO QHS PRN Constipation Simethicone 80 mg 03/06/23 08:15 Simethicone 80 Mg Tab.Chew PO QID PRN Abdominal Distention Temazepam 15 mg 03/06/23 08:15 Temazepam 15 Mg Capsule PO QHS PRN Sleep Witch July/Glycerin 1 pad 03/06/23 08:15 03/06/23 12:15 Glycerin/Witch July Pads TOPICAL 1 pad Q2H PRN Administration Pain Diet Category Date Time Status Regular Consistency Diet Diet 03/06/23 08:15 Active Respiratory Oxygen Delivery Method Room Air Oxygen Delivery Method Room Air Oxygen Delivery Method Room Air Renal Bladder Pattern Continent
[2023-03-07 06:09] LABS: Basophils Percent Auto 0.3 % (0.2-2.0); Eosinophils Absolute Auto 0.2 10^3/uL (0.0-0.7); Eosinophils Percent Auto 1.7 % (0.9-7.0); Hemoglobin 8.6 g/dL (12.0-16.0); Immature Granulocytes Abs Auto 0.07 10^3/uL (0.00-0.03); Immature Granulocytes Pct Auto 0.6 % (0.0-0.5); Lymphocytes Absolute Auto 1.9 10^3/uL (1.2-3.8); Lymphocytes Percent Auto 16.7 % (20.5-60.0); Mean Corpuscular HGB Conc 31.9 g/dL (29.9-35.2); Mean Corpuscular Hemoglobin 28.5 pg (26.7-34.0); Mean Corpuscular Volume 89.4 fL (81.0-99.0); Mean Platelet Volume 9.7 fL (9.5-13.5); Monocytes Absolute Auto 0.8 10^3/uL (0.3-0.8); Monocytes Percent Auto 7.1 % (1.7-12.0); Neutrophils Absolute Auto 8.4 10^3/uL (1.4-6.5); Neutrophils Percent Auto 73.6 % (43.0-75.0); Platelet Count 209 10^3/uL (150-450); Red Blood Count 3.02 10^6/uL (4.20-5.40); Red Cell Distribution Width 12.9 % (11.0-15.0); White Blood Count 11.5 10^3/uL (4.0-11.0)
[2023-03-07 07:44] VITALS: BP 113/56; PULSE 61
[2023-03-07 07:45] VITALS: PULSE 61; RESP 16; TEMP 36.8
[2023-03-07] MEDS: IBUPROFEN 600 MG TABLET PO (09:50)
--- NOTE | 2023-03-07 13:53 | PM.OBDS ---
DS: Providers Provider Date of admission: 03/05/23 17:53 Primary care physician: Non-Staff Physician, Admitting clinician: Clive Lugo Consults: 03/05/23 Consult to Anesthesiology Routine Consulting Provider: Jin Pinon Reason for consultation: Epidural Discharging clinician: Lennie Curran Anticipated date of discharge: 03/07/23 DS: Diagnosis Discharge Diagnosis (1) Term : Assessment and plan: vaginal delivery without complication Plan clinical exam nonfocal, requesting discharge OB - DS: Summary Complications complications: none Delivery method: spontaneous vaginal delivery Gender: male Discharge plan: home Status at Discharge Cognitive/behavioral status at discharge: wnl Functional status at discharge: independent ambulation Time Spent with Patient Time attestation: Total time spent providing and/or coordinating discharge services: Time spent: less than 30 minutes Exam Constitutional Vital Signs, click to edit/add: Last Vital Signs Temp 98.2 F 03/07/23 07:45 Pulse 61 03/07/23 07:45 Resp 16 03/07/23 07:45 BP 113/56 03/07/23 07:44 O2 Del Method Room Air 03/07/23 07:46 Documenting provider has reviewed patient's vital signs: yes Common normals: no apparent distress, oriented x3, no limitations, healthy appearing, alert and well nourished [facility] Common normals: normocephalic and head/scalp atraumatic Eye Pupil: PERRL and accommodation reflex normal Neck & C-Spine Common normals: full ROM and supple Respiratory Common normals: normal respiratory effort Cardio Common normals: regular rate and regular rhythm GI Common normals: Normal to inspection, nondistended, normoactive bowel sounds present, soft to palpation and non-tender Common normals: no CVA tenderness Back & Pelvis Common normals: thoracic and lumbar spine normal to inspection and no thoracic nor lumbar tenderness Extremity Common normals: normal to inspection, full ROM and no calf tenderness Neuro Common normals: CN's II-XII intact bilaterally, moves all extremities, no focal motor deficits and no sensory deficits noted Psych Common normals: mental status grossly normal, thought process normal, cooperative, affect normal and speech normal DS: Data Data Completed and Pending Labs on day of discharge: Labs from last 24 hours 03/07/23 05:52 WBC 11.5 H RBC 3.02 L Hgb 8.6 L Hct 27.0 L MCV 89.4 MCH 28.5 MCHC 31.9 RDW 12.9 Plt Count 209 MPV 9.7 Neut % (Auto) 73.6 Lymph % (Auto) 16.7 L [place] % (Auto) 7.1 Eos % (Auto) 1.7 Baso % (Auto) 0.3 Neut # (Auto) 8.4 H Lymph # (Auto) 1.9 [place] # (Auto) 0.8 Eos # (Auto) 0.2 Baso # (Auto) 0.0 Abs Immat Gran (auto) 0.07 H Imm/Tot Granulo (auto) 0.6 H Discharge Plan Discharge Disposition: Home, Self-Care Condition: Good Assessment: condition good, exam nonfocal, small perineal repair, bottle feeding Health Concerns: none Plan of Treatment: discharge home Discharge Medications: No Action No Known Home Medications Activity: resume usual activities as tolerated Activity Detail: no sex six weeks, only lift baby, may shower, sports bra 02/09 to inhibit milk production, post appointment in six weeks, call for problem or concern, requiring no scripts Diet: regular diet Patient Instructions: Vaginal Delivery (DC) Forms: Vaginal Delivery - Discharge, Portal Instructions Follow Up Appointments: six weeks post exam, baby to see peds within 7 days Discharge location: home
== END 2023-03-07 14:20 | disposition home or self-care (01) | DRG 807 ==
PROVIDERS: Admitting Provider Obstetrics & Gynecology; Visit Provider Obstetrics & Gynecology
DX: O99.824 Streptococcus B carrier state complicating childbirth (principal); Z37.0 Single live birth; O70.1 Second degree perineal laceration during delivery; O99.334 Smoking (tobacco) complicating childbirth; F17.210 Nicotine dependence, cigarettes, uncomplicated; Z3A.38 38 weeks gestation of pregnancy
CPT/HCPCS: 36415; 59050; 59410; 80307; 81003; 85025; 85027; 86850; 86900; 86901; 96365; 96366; 96367; 96368; 96376; J0290; J2795

== ENCOUNTER 2023-05-27 09:57 | Outpatient (OUT) | payer OTHER, SELFPAY ==
--- OUTSIDE RECORDS SUMMARY | 2023-05-27 10:17 | XMS_ITS | CCD ---
Author Organization [facility] Team Providers Care Certified Emergency Vehicle Technician Name Role Phone CHAVEZ BACA Unavailable Unavailable CHAVEZ BACA Unavailable Unavailable CHAVEZ BACA Unavailable Unavailable CANDY BACAA Unavailable Unavailable CANDY BACAA Unavailable Unavailable TRESSA HERZOG V Unavailable Unavailable CANDY BACAA Unavailable Unavailable CANDY BACAA Unavailable Unavailable CANDY BACAA Unavailable Unavailable CANDY BACAA Unavailable Unavailable CANDY BACAA Unavailable Unavailable CANDY BACAA Unavailable Unavailable CANDY BACAA Unavailable Unavailable CANDY BACAA Unavailable Unavailable CANDY BACAA Unavailable Unavailable MAXWELL BARBOSA Unavailable Unavailable CANDY BACAA Unavailable Unavailable CANDY BACAA Unavailable Unavailable CANDY BACAA Unavailable Unavailable CANDY BACAA Unavailable Unavailable CANDY BACAA Unavailable Unavailable CANDY BACAA Unavailable Unavailable TRESSA HERZOG V Unavailable Unavailable CANDY BACAA Unavailable Unavailable CANDY BACAA Unavailable Unavailable CANDY BACAA Unavailable Unavailable MISC, DOCTOR Unavailable Unavailable CANDY BACAA Unavailable Unavailable CANDY BACAA Unavailable Unavailable KEVEN, CHAVEZ Unavailable Unavailable KEVEN, CHAVEZ Unavailable Unavailable KEVEN CHAVEZ Unavailable Unavailable CANDY BACAA Unavailable Unavailable KEVEN, CHAVEZ Unavailable Unavailable KEVEN, CHAVEZ Unavailable Unavailable KEVEN CHAVEZ Unavailable Unavailable DEEPAK, SONAM Unavailable Unavailable DEEPAK, SONAM Unavailable Unavailable CARRIE HAWKINS Unavailable Unavailable MISC, DOCTOR Unavailable Unavailable DEEPAK, SONAM Unavailable Unavailable CANDY BACAA Unavailable Unavailable DEEPAK, SONAM Unavailable Unavailable Oly Marie Unavailable ISAIAS LUX Attending Unavailable DEEPAK, SONAM Attending Unavailable DEEPAK, SONAM Attending Unavailable MACI, ISAIAS Attending Unavailable MACIISAIAS ARREGUIN Attending Unavailable MACI, ISAIAS Attending Unavailable DEEPAK, SONAM Attending Unavailable DEEPAK, SONAM Attending Unavailable DEEPAK, [...] Facility COVID Quick Testingon 2021 Result Positive [email or web address] Other CBC AUTO DIFFon 07-23-2017 Basophils Auto #/vol (Bld) 0.0 103/ul Normal 0.0-0.1 [facility] Comment on above: Performed By: #### U AMIC ####[facility] Pndnamyqob2014 [place], [place] [address]Iptvut [place]ovanna Basophils/100 WBC Auto (Bld) 0.2 % Normal 0.2-2.0 [facility] Comment on above: Performed By: #### U AMIC ####[facility] Ubdhfsyefz8849 [place], [place] [address]Badagd [place]ovanna Eosinophils 0.0 103/ul Normal 0.0-0.7 [facility] Comment on above: Performed By: #### U AMIC ####[facility] Efgisqmzjr6674 [place], [place] [address]Jtyfge [place]ovanna Eosinophils/100 leukocytes 0.2 % Critically low 0.9-7.0 [facility] Comment on above: Performed By: #### U AMIC ####[facility] Flebayqkdi6088 [place] [id number] [place] Erythrocyte distribution width Auto Ratio (RBC) 14.3 % Normal 11.0-15.0 [facility] Comment on above: Performed By: #### U AMIC ####[facility] Jcsfezzz[address] [place], [place] [address]Gerken [place] Erythrocytes (RBC) 3.30 106/ul Critically low 4.20-5.40 [facility] Comment on above: Performed By: #### U AMIC ####[facility] C[address]qemlvcxo[address] [place], [place] [address]Gerken [place] Hematocrit (HCT) 28.5 % Critically low 36.0-48.0 [facility] Comment on above: Performed By: #### U AMIC ####[facility] Lpqhgudfkh[address] [place], [place] [address]Gerken [place] Hemoglobin mass conc (Bld) 9.5 g/dL Critically low 12.0-16.0 [facility] Comment on above: Performed By: #### U AMIC ####[facility] Mgougpavnj5097 [place], [place] [address]Qeqzhm Jovanna IG # 0.07 10e3/ul Critically high 0.00-0.03 [facility] Comment on above: Performed By: #### U AMIC ####[facility] Csjcdowysy8501 [place] [id number] [place] IG % 0.5 % Normal 0.0-0.5 [facility] Comment on above: Performed By: #### U AMIC ####[facility] Mymiicwxdc9250 [place] [id number] [place] Lymphocytes 1.1 103/ul Critically low 1.2-3.8 [facility] Comment on above: Performed By: #### U AMIC ####[facility] Mjgbclvxwk7581 [place] [address]Gerken [place] Lymphocytes/100 leukocytes 7.3 % Critically low 20.5-60.0 [facility] Comment on above: Performed By: #### U AMIC ####[facility] Hypgocytep8706 [place] [id number] [place] MANUAL DIFF REQ NO Normal [facility] Comment on above: Performed By: #### U AMIC ####[facility] Culqyctpii3498 [place] [id number] [place] MCH 28.8 pg Normal 26.7-34.0 [facility] Comment on above: Performed By: #### U AMIC ####[facility] Xdbyckrcnu5437 [place] [id number] [place] MCHC mass conc (RBC) 33.3 g/dL Normal 29.9-35.2 [facility] Comment on above: Performed By: #### U AMIC ####[facility] Ayxknwmzvw[address] [place], [place] [address]Gerken [place] MCV 86.4 fL Normal 81.0-99.0 [facility] Comment on above: Performed By: #### U AMIC ####[facility] Eitnzyzkdb6551 [place] [phone] [place] Monocytes 0.7 103/ul Normal 0.3-0.8 [facility] Comment on above: Performed By: #### U AMIC ####[facility] Zveyiudnjg7311 [place] [phone] [place] Monocytes/100 leukocytes 4.7 % Normal 1.7-12.0 [facility] Comment on above: Performed By: #### U AMIC ####[facility] Mrsdvrpqma4034[address] [place], [place] [address]Gerken [place] Neutrophils 12.8 103/ul Critically high 1.4-6.5 [facility] Comment on above: Performed By: #### U AMIC ####[facility] Fahfdnjvfb1306 [place], [place] [address]Ljyyia Jovanna Neutrophils/100 WBC Auto (Bld) 87.1 % Critically high 43.0-75.0 [facility] Comment on above: Performed By: #### U AMIC ####[facility] Zeolzohbzq[address] [place] [address]Bvmpfo [place]ovanna Platelet mean volume (PMV) 10.0 fL Normal 9.5-13.5 [facility] Comment on above: Performed By: #### U AMIC ####[facility] Ffhvnncsfk[address] [place] [address]Zflfxk Jovanna Platelets 171 103/ul Normal 150-450 [facility] Comment on above: Performed By: #### U AMIC ####[facility] Swtyejavnx7077[address] [place], [place] [address]Gerken [place] WBC (Leukocytes) 14.7 103/ul Critically high 4.0-11.0 [facility] Comment on above: Performed By: #### U AMIC ####[facility] Zwhodkcfol[address] [place] [address]Yvuaru [place]ovanna CBC AUTO DIFFon 07-22-2017 Basophils Auto #/vol (Bld) 0.0 103/ul Normal 0.0-0.1 [facility] Comment on above: Performed By: #### U AMIC ####[facility] Xonfjabwsf[address] [place] [address]Otbakv Jovanna Basophils/100 WBC Auto (Bld) 0.2 % Normal 0.2-2.0 [facility] Comment on above: Performed By: #### U AMIC ####[facility] Zhbhkromzz64[address] [place] [address]Clmhud [place]ovanna Eosinophils 0.1 103/ul Normal 0.0-0.7 [facility] Comment on above: Performed By: #### U AMIC ####[facility] Vvhleuarhk7[address] [place] [address]Nbzmwp Jovanna Eosinophils/100 leukocytes 0.4 % Critically low 0.9-7.0 [facility] Comment on above: Performed By: #### U AMIC ####[facility] Ehuyfdgrdr6165 [place] [phone] [place] Erythrocyte distribution width Auto Ratio (RBC) 14.5 % Normal 11.0-15.0 [facility] Comment on above: Performed By: #### U AMIC ####[facility] Arvattcmsk[address] [place] [address] Jovanna Erythrocytes (RBC) 3.83 106/ul Critically low 4.20-5.40 [facility] Comment on above: Performed By: #### U AMIC ####[facility] Dtlijnyhjv[address] [place], [place] [address]Gerken [place] Hematocrit (HCT) 33.0 % Critically low 36.0-48.0 [facility] Comment on above: Performed By: #### U AMIC ####[facility] Wygwgwpj[address] [place] [address] Jovanna Hemoglobin mass conc (Bld) 11.0 g/dL Critically low 12.0-16.0 [facility] Comment on above: Performed By: #### U AMIC ####[facility] Kjjwwozwje[address] [place], [place] [address]Gerken [place] IG # 0.06 10e3/ul Critically high 0.00-0.03 [facility] Comment on above: Performed By: #### U AMIC ####[facility] Lvefhhlpvb80[address] [place], [place] [address]Gerken [place] IG % 0.4 % Normal 0.0-0.5 [facility] Comment on above: Performed By: #### U AMIC ####[facility] Neqnciigdv1698 [place] [phone] [place]anna Lymphocytes 1.1 103/ul Critically low 1.2-3.8 [facility] Comment on above: Performed By: #### U AMIC ####[facility] Cvwistfaww90[address] [place], [place] [address]Gerken [place]ovanna Lymphocytes/100 leukocytes 7.0 % Critically low 20.5-60.0 [facility] Comment on above: Performed By: #### U AMIC ####[facility] Pdoqylyldx9629 [place] [phone] [place]anna MANUAL DIFF REQ NO Normal [facility] Comment on above: Performed By: #### U AMIC ####[facility] Vysxulzuyi6155 [place] [phone] [place]ovanna MCH 28.7 pg Normal 26.7-34.0 [facility] Comment on above: Performed By: #### U AMIC ####[facility] Mgzxldwzgc0717 [place] [phone] [place]anna MCHC mass conc (RBC) 33.3 g/dL Normal 29.9-35.2 [facility] Comment on above: Performed By: #### U AMIC ####[facility] Uekojlvsen8581 [place] [phone] [place]ovanna MCV 86.2 fL Normal 81.0-99.0 [facility] Comment on above: Performed By: #### U AMIC ####[facility] Opvpdggrro1180 [place], [place] [address]Ptonvd Jovanna Monocytes 0.8 103/ul Normal 0.3-0.8 [facility] Comment on above: Performed By: #### U AMIC ####[facility] Nbwnngnhrc2102 [place] [phone] [place]anna Monocytes/100 leukocytes 4.9 % Normal 1.7-12.0 [facility] Comment on above: Performed By: #### U AMIC ####[facility] Cngjosswya2781 [place], [place] [address]Rifaqe Jovanna Neutrophils 14.0 103/ul Critically high 1.4-6.5 [facility] Comment on above: Performed By: #### U AMIC ####[facility] Wfcdaeckbp9899 [place], [place] [address]Tfxkfn Jovanna Neutrophils/100 WBC Auto (Bld) 87.1 % Critically high 43.0-75.0 [facility] Comment on above: Performed By: #### U AMIC ####[facility] Vxvhtguvmy9186 [place] [phone] [place]anna Platelet mean volume (PMV) 11.5 fL Normal 9.5-13.5 [facility] Comment on above: Performed By: #### U AMIC ####[facility] Wcmrianqem0309 [place] [phone] [place] Platelets 204 103/ul Normal 150-450 [facility] Comment on above: Performed By: #### U AMIC ####[facility] Mewwsqlron8429 [address] [place] WBC (Leukocytes) 16.0 103/ul Critically high 4.0-11.0 [facility] Comment on above: Performed By: #### U AMIC ####[facility] Pdkchmzjyo6673 [address] [place] DRUG SCREEN RAPID (URINE)on 07-22-2017 AMP Negative Normal NEGATIVE [facility] Comment on above: Performed By: #### U AMIC ####[facility] Lbroukvffa4236 [address] [place] BAR Negative Normal NEGATIVE [facility] Comment on above: Performed By: #### U AMIC ####[facility] Uuxsswiioe8553 [address] [place] BUP Negative Normal NEGATIVE [facility] Comment on above: Performed By: #### U AMIC ####[facility] Adssxlylxi5304 [address] [place] BZO Negative Normal NEGATIVE [facility] Comment on above: Performed By: #### U AMIC ####[facility] Mjuwhzwswk4291 [address] [place] KENNETH Negative Normal NEGATIVE [facility] Comment on above: Performed By: #### U AMIC ####[facility] Avjpytwozs1611 [address] [place] CUT-OFFS SEE BELOW Normal [facility] Comment on above: Result Comment: AMP [...] 300 ng/mL Performed By: #### U AMIC ####[facility] [address]xs[address] [place] [address] DRUG CUT HEADER DRUG CLASS TEST SYSTEM CUT-OFF CONCENTRATIONS ARE FOLLOWS: Normal [facility] Comment on above: Performed By: #### U AMIC ####[facility] Ajdipalpck[address] [place] [address] mAMP Negative Normal NEGATIVE [facility] Comment on above: Performed By: #### U AMIC ####[facility] Cvcwcxsdhq[address] [place] [address] MTD Negative Normal NEGATIVE [facility] Comment on above: Performed By: #### U AMIC ####[facility] Z[address]rsdzfgvx[address] [place] [address] OPI Negative Normal NEGATIVE [facility] Comment on above: Performed By: #### U AMIC ####[facility] Taqzlrpfnj[address] [place] [address] OXY Negative Normal NEGATIVE [facility] Comment on above: Performed By: #### U AMIC ####[facility] Pebcctt[address] [place] [address] PCP Negative Normal NEGATIVE [facility] Comment on above: Performed By: #### U AMIC ####[facility] Irvnjvpuon[address] [place] [address] PPX Negative Normal NEGATIVE [facility] Comment on above: Performed By: #### U AMIC ####[facility] Soctwhgijk1356 [place] [phone] [place]anna TCA Negative Normal NEGATIVE [facility] Comment on above: Performed By: #### U AMIC ####[facility] Uzglfnakln17[address] [place], [place] [address]Gerken [place]anna THC Negative Normal NEGATIVE [facility] Comment on above: Performed By: #### U AMIC ####[facility] [address]scrmgd[address] [place] [address] [place]anna CHLAMYDIA/GONOCOCCUS LOR W/C ONF. (SWAB/Uon 06-28-2017 Chlamydia Trach LOR Negative Normal Negative [facility] Comment on above: Performed By: #### U AMIC ####[facility] [address]dvypwdl[address] [place] [address] Jovanna N. Gonorrhoeae LOR Negative Normal Negative [facility] Comment on above: Performed By: #### U AMIC ####[facility] Gxnneindoy[address] [place], [place] [address]Gerken [place] CBC AUTO DIFFon 06-27-2017 Basophils Auto #/vol (Bld) 0.0 103/ul Normal 0.0-0.1 [facility] Comment on above: Performed By: #### U AMIC ####[facility] Qoocdefynz[address] [place] [address] Jovanna Basophils/100 WBC Auto (Bld) 0.2 % Normal 0.2-2.0 [facility] Comment on above: Performed By: #### U AMIC ####[facility] Gtcxlqiuqh350[address] [place], [place] [address]Gerken [place] Eosinophils 0.1 103/ul Normal 0.0-0.7 [facility] Comment on above: Performed By: #### U AMIC ####[facility] Pxxigsoiwy[address] [place] [address] J[place] Eosinophils/100 leukocytes 1.2 % Normal 0.9-7.0 [facility] Comment on above: Performed By: #### U AMIC ####[facility] Wxxjrukose[address] [place] [address] J[place]anna Erythrocyte distribution width Auto Ratio (RBC) 12.9 % Normal 11.0-15.0 [facility] Comment on above: Performed By: #### U AMIC ####[facility] Ynohwundre[address] [place] [address] J[place]anna Erythrocytes (RBC) 3.47 106/ul Critically low 4.20-5.40 [facility] Comment on above: Performed By: #### U AMIC ####[facility] Pjtbrcxkyo[address] [place] [address] Jovanna Hematocrit (HCT) 30.6 % Critically low 36.0-48.0 [facility] Comment on above: Performed By: #### U AMIC ####[facility] Kjowfxqoct[address] [place] [address] J[place]anna Hemoglobin mass conc (Bld) 10.1 g/dL Critically low 12.0-16.0 [facility] Comment on above: Performed By: #### U AMIC ####[facility] [address]jbgbxzdq8[address] [place] [address] Jovanna IG # 0.03 10e3/ul Normal 0.00-0.03 [facility] Comment on above: Performed By: #### U AMIC ####[facility] [address]fqumv[address] [place] [address] Jovanna IG % 0.3 % Normal 0.0-0.5 [facility] Comment on above: Performed By: #### U AMIC ####[facility] [address]ppxmjrs[address] [place] [address] J[place] Lymphocytes 1.6 103/ul Normal 1.2-3.8 [facility] Comment on above: Performed By: #### U AMIC ####[facility] [address]beqvwuow[address] [place] [address] J[place] Lymphocytes/100 leukocytes 17.3 % Critically low 20.5-60.0 [facility] Comment on above: Performed By: #### U AMIC ####[facility] Hazgbsawmm[address] [place] [address] J[place]anna MANUAL DIFF REQ NO Normal [facility] Comment on above: Performed By: #### U AMIC ####[facility] Swuzuxsliy2043 [place], [place] [address]Krpfak Jovanna MCH 29.1 pg Normal 26.7-34.0 [facility] Comment on above: Performed By: #### U AMIC ####[facility] Uwlfmgkvde6216 [place], [place] [address]Azjbyt J[place]anna MCHC mass conc (RBC) 33.0 g/dL Normal 29.9-35.2 [facility] Comment on above: Performed By: #### U AMIC ####[facility] Hvaxdnfpsa1288 [place] [phone] [place]ovanna MCV 88.2 fL Normal 81.0-99.0 [facility] Comment on above: Performed By: #### U AMIC ####[facility] Osessphpcv3572 [place] [phone] [place] Monocytes 0.7 103/ul Normal 0.3-0.8 [facility] Comment on above: Performed By: #### U AMIC ####[facility] Tstejgbxqr5370 [place] [address]Gerken [place] Monocytes/100 leukocytes 7.7 % Normal 1.7-12.0 [facility] Comment on above: Performed By: #### U AMIC ####[facility] Utwqfxcqrw4849 [place] [address]Gerken [place]anna Neutrophils 6.6 103/ul Critically high 1.4-6.5 [facility] Comment on above: Performed By: #### U AMIC ####[facility] Gfvzwljybh1034 [place] [address]Gerken [place]ovanna Neutrophils/100 WBC Auto (Bld) 73.3 % Normal 43.0-75.0 [facility] Comment on above: Performed By: #### U AMIC ####[facility] Oldgeqjbip3780 [place], [place] [address]Gbldvs Jovanna Platelet mean volume (PMV) 10.4 fL Normal 9.5-13.5 [facility] Comment on above: Performed By: #### U AMIC ####[facility] Cqqulhfabu8354 [place], [place] [address]Kgbohv Jovanna Platelets 235 103/ul Normal 150-450 [facility] Comment on above: Performed By: #### U AMIC ####[facility] Hrasrsulfu[address] [place] [address]Uqzaib Jovanna WBC (Leukocytes) 9.1 103/ul Normal 4.0-11.0 [facility] Comment on above: Performed By: #### U AMIC ####[facility] Aqlayixkhf[address] [place] [address]Wyirqo Jovanna GROUP B STREPTon 06-25-2017 GBS Performed by [facility] , final report to follow Normal NEG FOR GBS [facility] Comment on above: Performed By: #### U AMIC ####[facility] Nngaooooyw[address] [place] [address]Rezpzu [place]ovanna CBC AUTO DIFFon 05-16-2017 Basophils Auto #/vol (Bld) 0.0 103/ul Normal 0.0-0.1 [facility] Comment on above: Performed By: #### P REGQNT ####[facility] Pcxekwsnja[address] [place], [place] [address]Gerken [place] Basophils/100 WBC Auto (Bld) 0.2 % Normal 0.2-2.0 [facility] Comment on above: Performed By: #### P REGQNT ####[facility] Zdmfyzdhry80[address] [place], [place] [address]Gerken [place] Eosinophils 0.1 103/ul Normal 0.0-0.7 [facility] Comment on above: Performed By: #### P REGQNT ####[facility] Fshgxefxpa[address] [place], [place] [address]Gerken [place] Eosinophils/100 leukocytes 0.7 % Critically low 0.9-7.0 [facility] Comment on above: Performed By: #### P REGQNT ####[facility] Slgelwsbtz36[address] [place], [place] [address]Gerken [place] Erythrocyte distribution width Auto Ratio (RBC) 12.6 % Normal 11.0-15.0 [facility] Comment on above: Performed By: #### P REGQNT ####[facility] Yqsmdmdfrz6033 [address] [place] Erythrocytes (RBC) 3.42 106/ul Critically low 4.20-5.40 [facility] Comment on above: Performed By: #### P REGQNT ####[facility] Lljlsjvfhy8667 [address] [place] Hematocrit (HCT) 30.4 % Critically low 36.0-48.0 [facility] Comment on above: Performed By: #### P REGQNT ####[facility] Isswqsboth[address] [place] [address] J[place]anna Hemoglobin mass conc (Bld) 10.3 g/dL Critically low 12.0-16.0 [facility] Comment on above: Performed By: #### P REGQNT ####[facility] Qweuvmmejb[address] [place] [address] Jovanna IG # 0.08 10e3/ul Critically high 0.00-0.03 [facility] Comment on above: Performed By: #### P REGQNT ####[facility] Prsoeajkvy[address] [place] [address] Jovanna IG % 0.6 % Critically high 0.0-0.5 [facility] Comment on above: Performed By: #### P REGQNT ####[facility] [address]jnuyscqj[address] [place] [address] Jovanna Lymphocytes 1.2 103/ul Normal 1.2-3.8 [facility] Comment on above: Performed By: #### P REGQNT ####[facility] Wzdrtmmcfz[address] [place] [address] J[place] Lymphocytes/100 leukocytes 9.3 % Critically low 20.5-60.0 [facility] Comment on above: Performed By: #### P REGQNT ####[facility] Lnevyjqvsa[address] [place] [address] [place] MANUAL DIFF REQ NO Normal [facility] Comment on above: Performed By: #### P REGQNT ####[facility] Qrmamhxklq3160 [place], [place] [address]Ordibc Karen MCH 30.1 pg Normal 26.7-34.0 [facility] Comment on above: Performed By: #### P REGQNT ####[facility] Hxlgkdlsrw5103 [place], [place] [address]Zmkzhx Karen MCHC mass conc (RBC) 33.9 g/dL Normal 29.9-35.2 [facility] Comment on above: Performed By: #### P REGQNT ####[facility] Fvsopldhdb8318 [place] [phone] [place] MCV 88.9 fL Normal 81.0-99.0 [facility] Comment on above: Performed By: #### P REGQNT ####[facility] Edvckdlnsl[address] [place], [place] [address]Gerken [place] Monocytes 0.7 103/ul Normal 0.3-0.8 [facility] Comment on above: Performed By: #### P REGQNT ####[facility] Cvtfvjrifh[address] [place], [place] [address]Gerken [place]ovanna Monocytes/100 leukocytes 5.3 % Normal 1.7-12.0 [facility] Comment on above: Performed By: #### P REGQNT ####[facility] Gxuuntufno[address] [place], [place] [address]Gerken [place]ovanna Neutrophils 10.5 103/ul Critically high 1.4-6.5 [facility] Comment on above: Performed By: #### P REGQNT ####[facility] [address] [place] [address] [address]Gigerv Jovanna Neutrophils/100 WBC Auto (Bld) 83.9 % Critically high 43.0-75.0 [facility] Comment on above: Performed By: #### P REGQNT ####[facility] X[address] [place] [address]Adkkzv Jovanna Platelet mean volume (PMV) 9.0 fL Critically low 9.5-13.5 [facility] Comment on above: Performed By: #### P REGQNT ####[facility] Wklajtprvb3543 [place], [place] [address]Xerhei Karen Platelets 233 103/ul Normal 150-450 [facility] Comment on above: Performed By: #### P REGQNT ####[facility] Okocpyhakh8640 [place], [place] [address]Lvylcd Karen WBC (Leukocytes) 12.6 103/ul Critically high 4.0-11.0 [facility] Comment on above: Performed By: #### P REGQNT ####[facility] Udyqkfwprb7818 [place], [place] [address]Rnisdy Jovanna GLUCOSE - 1HRon 05-16-2017 Glucose mass conc 112 mg/dL Critically high 74-106 Th [facility] Comment on above: Performed By: #### P REGQNT ####[facility] Dbxwblmiic1730 [place], [place] [address]PmibtyAlberto Nugent US PREG INCOMPLETE ANATOMYon 04-25-2017 US PREG INCOMPLETE ANATOMY [address] [place] [address] Patient: LINNEA CAPELLAN Exam Date: 04/25/2017DOB: 1995 Gender:F : CHAVEZ BACA . Admission #: [id number] : Order #: [id number] HERE TO VIEW EXAM RADIOLOGY REPORT PROCEDURE: [...] M.D. on 04/25/2017 at 11:42 Normal [facility] US PREG ANATOMY SINGLEon US PREG ANATOMY SINGLE [address] [place] [id number] Patient: LINNEA CAPELLAN Exam Date: 03/10/2017DOB: 1995 Gender:F : CHAVEZ NoemiIsela BACA . Admission #: [id number] : Order #: [id number] HERE TO VIEW EXAM RADIOLOGY REPORT PROCEDURE: [...] Maxwell Barbosa M.D. on 03/10/2017 at 12:18 [facility] PAP ACOG PANEL 4: 21 to 29on 03-03-2017 Age Gdln ACOG Testing - Normal [facility] Comment on above: Performed By: #### P REGQNT ####[facility] Lcndyrddqf84[address] Chlamydia, Nuc. Acid Amp Negative Normal Negative [facility] Comment on above: Result Comment: Perf ormed at: =G Performed By: #### P REGQNT ####[facility] [address] [place], [place] [address] DIAGNOSIS: Comment Normal [facility] Comment on above: Result Comment: NEGA TIVE FOR INTRAEPITHELIAL LESION AND MALIGNANCY.Performed at: WB Performed By: #### P REGQNT ####[facility] [address] [place] [address] Jovanna Gonococcus, Nuc. Acid Amp Negative Normal Negative [facility] Comment on above: Result Comment: Perf ormed at: =G Performed By: #### P REGQNT ####[facility] [address]xuf[address] [place] [address] Methodology: Comment Normal [facility] Comment on above: Result Comment: This liquid based ThinPrep(R) pap test was screened with theuse of an image guided system.Performed at: WB Performed By: #### P REGQNT ####[facility] [address] [place] [address] Note: Comment Normal [facility] [...] at: WB Performed By: #### P REGQNT ####[facility] [address] [place] [address] Performed by: Comment Normal [facility] Comment on above: Result Comment: Florentin Collins, Advertising Sales Associate (ASCP)Performed at: WB Performed By: #### P REGQNT ####[facility] [address] [place] [address] Reflex Criteria: Comment Normal [facility] Comment on above: Result Comment: The HPV DNA reflex criteria were not met with this specimen resulttherefore, no HPV testing was performed. .Performed at: WB Performed By: #### P REGQNT ####[facility] [address] [place] [address] Specimen adequacy: Comment Normal [facility] Comment on above: Result Comment: Sati sfactory for evaluation. Endocervical and/or squamous metaplasticcells (endocervical component) are present.Performed at: WB Performed By: #### P REGQNT ####[facility] [address] [place] [address] Trich vag by LOR Negative Normal Negative [facility] Comment on above: Result Comment: Perf ormed at: =G Performed By: #### P REGQNT ####[facility] [address] [place] [address] . . Normal [facility] Comment on above: Result Comment: Perf ormed at: WB Performed By: #### P REGQNT ####[facility] [address] [place] [address] HEP B SURFACE AGon 8 BSA (Body Surface Area) Negative Normal Negative [facility] Comment on above: Performed By: #### H EPBSUR ####[facility] [address] [place] [address] HEPATITIIS C VIRUS ANTIBODYo n 02-27-2017 Hep C Virus Ab <0.1 Normal 0.0-0.9 [facility] Comment on above: Result Comment: Nega tive: < 0.8 Indeterminate: 0.8 - 0.9 Positive: > 0.9 . The CDC recommends that a positive HCV antibody result be followed up with a HCV Nucleic Acid Amplification test (155108). Performed By: #### H CV ####[facility] [address] [place] [address] Jovanna HGB(ELECTP) FRACTION PROFILE on 02-27-2017 Hemoglobin mass conc (Bld) 3.0 % Normal 1.8-3.2 [facility] Comment on above: Result Comment: Pl ease note reference interval change Performed By: #### P REGQNT ####[facility] Lfvnupsiiq[address] [place] [address] Jovanna Hemoglobin mass conc (Bld) 0.0 % Normal 0.0 [facility] Comment on above: Performed By: #### P REGQNT ####[facility] [address] [place] [address] Jovanna Hemoglobin mass conc (Bld) Negative Normal Negative [facility] Comment on above: Performed By: #### P REGQNT ####[facility] [address] [place] [address] Jovanna Hemoglobin mass conc (Bld) 0.5 % Normal 0.0-2.0 [facility] Comment on above: Result Comment: Pl ease note reference interval change Performed By: #### P REGQNT ####[facility] [address]bsbuqiihb[address] [place] [address] Jovanna Hemoglobin mass conc (Bld) 96.5 % Normal 96.4-98.8 [facility] Comment on above: Result Comment: Pl ease note reference interval change Performed By: #### P REGQNT ####[facility] [address] [place] [address] Jovanna Hemoglobin mass conc (Bld) Normal [facility] Comment on above: Performed By: #### P REGQNT ####[facility] [address] [place] [address] Jovanna Interpretation Comment Normal [facility] Comment on above: Result Comment: Norm al adult hemoglobin present. Performed By: #### P REGQNT ####[facility] [address]rjld[address] [place] [address] Jovanna RPR QUANTon 02-27-2017 Rapid Plasma Reagin, Quant Non Reactive Normal NonRea<1:1 [facility] Comment on above: Performed By: #### P REGQNT ####[facility] [address] [place] [address] Jovanna VARICELLA IGG ABon 8 Varicella Zoster IgG <135 Critically low Immune >165 [facility] Comment on above: Result Comment: Nega tive <135 Equivocal 135 - 165 Positive >165 A positive result generally indicates exposure to the pathogen or administration of specific immunoglobulins, but it is not indication of active infection or stage of disease. Performed By: #### P REGQNT ####[facility] [address]sp[address] [place] [address] Jovanna TYPE AND SCREENon 02-26-2017 TYPE AND SCREEN Negative Normal [facility] Comment on above: Performed By: #### T NS ####[facility] [address] [place] [address] Jovanna CBC AUTO DIFFon 02-25-2017 Basophils Auto #/vol (Bld) 0.0 103/ul Normal 0.0-0.1 [facility] Comment on above: Performed By: #### C BC ####[facility] [address] [place] [address] Jovanna Basophils/100 WBC Auto (Bld) 0.3 % Normal 0.2-2.0 [facility] Comment on above: Performed By: #### C BC ####[facility] [address] [place] [address] Jovanna Eosinophils 0.1 103/ul Normal 0.0-0.7 [facility] Comment on above: Performed By: #### C BC ####[facility] [address]ls[address] [place] [address] Jovanna Eosinophils/100 leukocytes 1.2 % Normal 0.9-7.0 [facility] Comment on above: Performed By: #### C BC ####[facility] Skcarklfkr8676 [address] Jovanna Erythrocyte distribution width Auto Ratio (RBC) 13.6 % Normal 11.0-15.0 [facility] Comment on above: Performed By: #### C BC ####[facility] Isbcgsxmtb0851 [address] Jovanna Erythrocytes (RBC) 3.59 106/ul Critically low 4.20-5.40 [facility] Comment on above: Performed By: #### C BC ####[facility] [address] [place] [address] Jovanna Hematocrit (HCT) 32.3 % Critically low 36.0-48.0 [facility] Comment on above: Performed By: #### C BC ####[facility] [address] [place] [address] Jovanna Hemoglobin mass conc (Bld) 10.7 g/dL Critically low 12.0-16.0 [facility] Comment on above: Performed By: #### C BC ####[facility] [address]na[address] [place] [address] Jovanna IG # 0.11 10e3/ul Critically high 0.00-0.03 [facility] Comment on above: Performed By: #### C BC ####[facility] Fogghcgnth9685 [address] Jovanna IG % 1.2 % Critically high 0.0-0.5 [facility] Comment on above: Performed By: #### C BC ####[facility] Jzqppjyonc5296 [address]deangelo Nugent Lymphocytes 1.4 103/ul Normal 1.2-3.8 [facility] Comment on above: Performed By: #### C BC ####[facility] [address] [place] [address] Jovanna Lymphocytes/100 leukocytes 15.2 % Critically low 20.5-60.0 [facility] Comment on above: Performed By: #### C BC ####[facility] [address]ep45[address] [place] [id number] Jovanna MANUAL DIFF REQ NO Normal [facility] Comment on above: Performed By: #### C BC ####[facility] K[address]vxzvuxq1030 [place] [id number] Jovanna MCH 29.8 pg Normal 26.7-34.0 [facility] Comment on above: Performed By: #### C BC ####[facility] Ernbbpjcap7641 [place] [address]Gerken Jovanna MCHC mass conc (RBC) 33.1 g/dL Normal 29.9-35.2 [facility] Comment on above: Performed By: #### C BC ####[facility] [address] [place] [address] Jovanna MCV 90.0 fL Normal 81.0-99.0 [facility] Comment on above: Performed By: #### C BC ####[facility] [address] [place] [address] Jovanna Monocytes 0.5 103/ul Normal 0.3-0.8 [facility] Comment on above: Performed By: #### C BC ####[facility] [address] [place] [address] Jovanna Monocytes/100 leukocytes 5.7 % Normal 1.7-12.0 [facility] Comment on above: Performed By: #### C BC ####[facility] Y[address]fs[address] [place], [place] [address]Gerken Jovanna Neutrophils 7.2 103/ul Critically high 1.4-6.5 [facility] Comment on above: Performed By: #### C BC ####[facility] Mr[address]hkbtg[address] [place] [address] Jovanna Neutrophils/100 WBC Auto (Bld) 76.4 % Critically high 43.0-75.0 [facility] Comment on above: Performed By: #### C BC ####[facility] K[address]htmuww9369 [place], [place] [address]BypghyAlberto Nugent Platelet mean volume (PMV) 10.1 fL Normal 9.5-13.5 [facility] Comment on above: Performed By: #### C BC ####[facility] Lsudixwzwz3556 [place] [address]Alberto Nugetn Platelets 248 103/ul Normal 150-450 [facility] Comment on above: Performed By: #### C BC ####[facility] Jbzyurgwso5213 [place] [address]Gerdeangelo Nugent WBC (Leukocytes) 9.5 103/ul Normal 4.0-11.0 [facility] Comment on above: Performed By: #### C BC ####[facility] [address]wbqwo[address] [place] [address]JabwjqAlberto Nugent HIV 1 AND 2 ABon 02-25-2017 HIV 1 AND 2 AB Negative Normal NEGATIVE [facility] Comment on above: Performed By: #### P REGQNT ####[facility] Y[address]qke[address] [place], [place] [address]Gerken Jovanna PREG QUANT HCGon 02-25-2017 HCG Qn SEE BELOW Normal [facility] Comment on above: Result Comment: 5-50 0-1 WEEK 40-300 1-2 WEEKS 100-1,000 2-3 WEEKS 500-6,000 3-4 WEEKS 5,000-200,000 1-2 MONTHS 10,000-100,000 2-3 MONTHS 3,000-50,000 2ND TRIMESTER 1,000-50,000 3RD TRIMESTER Performed By: #### P REGQNT ####[facility] Z[address] [place] [address]Ejpdxa Jovanna HCG QUANT 65660.00 mIU/mL Normal [facility] Comment on above: Performed By: #### P REGQNT ####[facility] [address]rulzjt[address] [place], [place] [address]Alberto Nugent RUBELLA AB IGGon 02-25-2017 RUB HEADER SEE BELOW Normal [facility] Comment on above: Result Comment: or=1 5.0 IU/mL POSITIVE WHO considers levels >or= 10.0 IU/mL to be positive immune status Performed By: #### P REGQNT ####[facility] Mhypinsxat5308 [place], [place] [address]LwigjvAlberto Nugent RUB IGG 6.8 IU/mL Normal [facility] Comment on above: Performed By: #### P REGQNT ####[facility] Cjntbxtcrb6555 [place], [place] [address]GsiytnAlberto Nugent US PREG DATING >14WEEKSon US PREG DATING >14WEEKS [address] [place] [address] Patient: LINNEA CAPELLAN Exam Date: 02/19/2017DOB: 1995 Gender:F : CHAVEZ BACA . Admission #: [id number] : Order #: [id number] HERE TO VIEW EXAM RADIOLOGY REPORT PROCEDURE: [...] M.D. on 02/19/2017 at 09:51 Normal [facility] CULTURE URINEon 02-14-2017 CULTURE URINE Culture Observations : final, scanned results to follow in hpf Normal [facility] Comment on above: Performed By: #### C XUR ####[facility] Riegqpucqd5157 [address] Jovanna UA RANDOM W/MICROSCOPICon AMORPHOUS CRYSTALS FEW Normal [facility] Comment on above: Performed By: #### U AMIC ####[facility] Csyjderfmf7316 [address] Jovanna Bilirubin (total) Negative Normal NEGATIVE [facility] Comment on above: Performed By: #### U AMIC ####[facility] Xuftcelobk4947 [address] Jovanna BLOOD Negative Normal NEGATIVE [facility] Comment on above: Performed By: #### U AMIC ####[facility] Booreksxfo1076 [address] Jovanna CAST NONE SEEN Normal NONE SEEN [facility] Comment on above: Performed By: #### U AMIC ####[facility] Fzfijwmrme8195 [address] Jovanna Erythrocytes (RBC) 0-2 Normal 0-2 [facility] Comment on above: Performed By: #### U AMIC ####[facility] Eeccjrtnej0391 [address] Jovanna Glucose mass conc Negative Normal NEGATIVE [facility] Comment on above: Performed By: #### U AMIC ####[facility] Orfxbywydw1165 [address] Jovanna MUCOUS SMALL Normal NONE SEEN [facility] Comment on above: Performed By: #### U AMIC ####[facility] Yznkhresnd2467 [place], [place] [address]Uhzsaj Jovanna pH of blood 7.5 [pH] Normal 5-9 [facility] Comment on above: Performed By: #### U AMIC ####[facility] Usifaiynrr3543 [place], [place] [address]Uvoyvo Jovanna Protein Negative Normal [facility] Comment on above: Performed By: #### U AMIC ####[facility] Lfjxskucbw6144 [place] [address]Gerken Jovanna SPEC GRAVITY 1.020 Normal 1.005-<=1.025 [facility] Comment on above: Performed By: #### U AMIC ####[facility] Vvgucgeuvi0993 [address] Jovanna Urine, bacteria in sediment TRACE Normal NONE SEEN [facility] Comment on above: Performed By: #### U AMIC ####[facility] Rerxbqrcnt4771 [place] [address]Gerken Jovanna Urine, clarity SL CLOUDY Normal [facility] Comment on above: Performed By: #### U AMIC ####[facility] Rhlnbzanoc4369 [place] [phone] Jovanna Urine, color LT. YELLOW Normal YELLOW [facility] Comment on above: Performed By: #### U AMIC ####[facility] Pnegltiskf9525 [place] [phone] Jovanna Urine, crystals in sediment SEEN Normal NONE SEEN [facility] Comment on above: Performed By: #### U AMIC ####[facility] Siasidibhm4594 [place], [place] [address]Zpnagi Jovanna Urine, epithelial cells in sediment FEW Normal [facility] Comment on above: Performed By: #### U AMIC ####[facility] [address]jdlpjilh7812 [place] [phone] Jovanna Urine, ketones presence Negative Normal NEGATIVE [facility] Comment on above: Performed By: #### U AMIC ####[facility] Yskpihxgos8594 [place], [place] [address]CkumdlAlberto Nugent Urine, nitrite presence Negative Normal NEGATIVE [facility] Comment on above: Performed By: #### U AMIC ####[facility] Xjxwooqorv9303 [place], [place] [address]RumygbAlberto Nugent Urine, urobilinogen 0.2 {Rony'U}/dL Normal [facility] Comment on above: Performed By: #### U AMIC ####[facility] Gfkcziwogj9109 [place], [place] [address]Mhfsjq Karen WBC (Leukocytes) 0-2 Normal NONE SEEN [facility] Comment on above: Performed By: #### U AMIC ####[facility] Yzjqsdusua0406 [place] [address]Alberto Nugent WBC (Leukocytes) Negative Normal NEGATIVE [facility] Comment on above: Performed By: #### U AMIC ####[facility] Gjifxkhgtf3239 [place], [place] [address]BybuwcAlberto Nugent ABO AND RH TYPEon 02-06-2017 ABO AND RH TYPE Positive Normal [facility] Comment on above: Performed By: #### A BORLorna ####[facility] Cbqrkwolbt2942 [place], [place] [address]JvjgguAlberto Nugent PREG QUANT HCGon 02-06-2017 HCG Qn SEE BELOW Normal [facility] Comment on above: Result Comment: 5-50 0-1 WEEK 40-300 1-2 WEEKS 100-1,000 2-3 WEEKS 500-6,000 3-4 WEEKS 5,000-200,000 1-2 MONTHS 10,000-100,000 2-3 MONTHS 3,000-50,000 2ND TRIMESTER 1,000-50,000 3RD TRIMESTER Performed By: #### P REGQNT ####[facility] [address]om[address]ixdoe0646 [place], [place] [address]EvalniAlberto Nugent HCG QUANT 89010.00 mIU/mL Normal [facility] Comment on above: Performed By: #### P REGQNT ####[facility] Mwolvjtlmf9280 [place], [place] [address]AvkbwdAlberto Nugent Encounters Encounter Date Encounter Type Care Provider Facility Start: 05-12-2023 End: 05-12-2023 ambulatory SONAM DEEPAK Not Available Start: 04-17-2023 End: 04-17-2023 ambulatory ISAIAS MACI Not Available Start: 03-04-2023 End: 03-04-2023 ambulatory ISAIAS MACI [...] 09-15-2021 End: 09-15-2021 ambulatory Oly Marie Other [email or web address] Other Start: 09-15-2021 Nursing evaluation o f patient and report Oly Marie [facility] Start: 07-28-2017 End: 07-28-2017 [...] [employer] Payers Date Payer Category Payer Unknown [id number] 2022 Unknown [id number] 1995 Unknown [id number] 2.16.84 [id number] 1995 Unknown [id number] 2.16.84 [id number] 1995 Unknown [id number] 2.16.84 [id number] 1993 Unknown [id number] 2.16.84 [id number] 1993 Unknown [id number] 2.16.84 0.1.840698.3.579.2.1259 1993 Unknown [id number] 2.16.840 .1.808531.3.579.2.1259 1993 Unknown [id number] 2.16.840 .1.885793.3.579.2.1259 1993 Unknown [id number] 2.16.840 .1.137554.3.579.2.1259 1993 Unknown [id number] 2.16.840 .[id number] 1961 Private Health Insurance [id number] Social History Date Type Detail Facility Sex Assigned At [email or web address] Other Evaluation note 09-15-2021 Note Date & Type Note Facility 09-15-2021 Evaluation note Encounter Date Diagnosis Assessment Notes Sep, Cough, unspecified type (ICD-10 - R05.9) [email or web address] Other Summary Purpose Family History No Family History Records FoundNo Family History Records Found Advance Directives No Advanced Directives Records FoundNo Advanced Directives Records Found Additional Source Comments INFORMATION SOURCE (unrecogn ized section and content) DATE CREATED AUTHOR 08/11/2017 [facility] DATE CREATED AUTHOR AUTHOR'S ORGANIZ ATION 05/12/2023 [facility] EPIC FOR RECORDS PERTAINING [...] BE BASED ON THE PRIMARY CLINICAL RECORDS. [facility] [email or web address] [facility]. provides no warranty or guarantee of the accuracy or completeness of information in this document.
== END 2023-05-27 09:58 | disposition home or self-care (01) ==
LOC: PST 09:58
PROVIDERS: Visit Provider Obstetrics & Gynecology
DX: Z01.818 Encounter for other preprocedural examination (principal); Z30.2 Encounter for sterilization

== ENCOUNTER 2023-06-06 06:54 | Day surgery (SDC) | payer OTHER, SELFPAY ==
[2023-05-27 10:31] VITALS: BP 103/62; PULSE 68; TEMP 36.5; O2SAT 97; BMI 15.9
[2023-06-06] VITALS (9 sets, daily range): BP systolic 90–110; BP diastolic 53–69; PULSE 51–83; TEMP 36.1–36.4; O2SAT 16–100; BMI 15.6
--- OUTSIDE RECORDS SUMMARY | 2023-06-06 06:57 | XMS_ITS | CCD ---
[facility] Organization [facility] Team Providers Care Information Clerk Cashier Name Role Phone CHAVEZ BACA Unavailable Unavailable [...] Unavailable Unavailable KEVEN, CHAVEZ Unavailable Unavailable KEVEN, HCAVEZ Unavailable Unavailable KEVEN, CHAVEZ Unavailable Unavailable CANDY BACAA Unavailable Unavailable KEVEN, CHAVEZ Unavailable Unavailable KEVEN, CHAVEZ Unavailable Unavailable KEVEN, CHAVEZ Unavailable Unavailable DEEPAK, SONAM Unavailable Unavailable [...] Facility COVID Quick Testingon 2021 Result Positive [facility] Other CBC AUTO DIFFon 07-23-2017 Basophils Auto #/vol (Bld) 0.0 103/ul Normal 0.0-0.1 [facility] Comment on above: Performed By: #### U AMIC ####[facility] Tjjzsiycny0851 [place], [place] [address]Wkmlvj Jovanna Basophils/100 WBC Auto (Bld) 0.2 % Normal 0.2-2.0 [facility] Comment on above: Performed By: #### U AMIC ####[facility] Btbchutwtw4576 [place], [place] [address]Bhvilb Jovanna Eosinophils 0.0 103/ul Normal 0.0-0.7 [facility] Comment on above: Performed By: #### U AMIC ####[facility] Bpapskadys0270 [place], [place] [address]Urmagf Jovanna Eosinophils/100 leukocytes 0.2 % Critically low 0.9-7.0 [facility] Comment on above: Performed By: #### U AMIC ####[facility] Kjxofivqsq6004 [place] [id number] Jovanna Erythrocyte distribution width Auto Ratio (RBC) 14.3 % Normal 11.0-15.0 [facility] Comment on above: Performed By: #### U AMIC ####[facility] V[address]ns[address] [place], [place] [address]ken Jovanna Erythrocytes (RBC) 3.30 106/ul Critically low 4.20-5.40 [facility] Comment on above: Performed By: #### U AMIC ####[facility] Egwljlluuw[address] [place], [place] [address] Jovanna Hematocrit (HCT) 28.5 % Critically low 36.0-48.0 [facility] Comment on above: Performed By: #### U AMIC ####[facility] Zgbykmvanh[address] [place], [place] [address] [place]ovanna Hemoglobin mass conc (Bld) 9.5 g/dL Critically low 12.0-16.0 [facility] Comment on above: Performed By: #### U AMIC ####[facility] Kmelokxcyy5862 [place], [place] [address]Tpgzjp Jovanna IG # 0.07 10e3/ul Critically high 0.00-0.03 [facility] Comment on above: Performed By: #### U AMIC ####[facility] Tjjaopcqgp2581 [place] [address]ovanna IG % 0.5 % Normal 0.0-0.5 [facility] Comment on above: Performed By: #### U AMIC ####[facility] Cfjonckqns5033 [place] [address]anna Lymphocytes 1.1 103/ul Critically low 1.2-3.8 [facility] Comment on above: Performed By: #### U AMIC ####[facility] Vyvgfqpwuy0943 [place] [address]ovanna Lymphocytes/100 leukocytes 7.3 % Critically low 20.5-60.0 [facility] Comment on above: Performed By: #### U AMIC ####[facility] Cguywfioyi3506 [place] [id number]ovanna MANUAL DIFF REQ NO Normal [facility] Comment on above: Performed By: #### U AMIC ####[facility] Tkkgynopxs7356 [place] [id number] Jovanna MCH 28.8 pg Normal 26.7-34.0 [facility] Comment on above: Performed By: #### U AMIC ####[facility] Gxmtidxlhf9507 [place] [id number] Jovanna MCHC mass conc (RBC) 33.3 g/dL Normal 29.9-35.2 [facility] Comment on above: Performed By: #### U AMIC ####[facility] R[address]qnsxlqfp[address] [place], [place] [address]ovanna MCV 86.4 fL Normal 81.0-99.0 [facility] Comment on above: Performed By: #### U AMIC ####[facility] Aifmisvcvi4852 [place] [address]anna Monocytes 0.7 103/ul Normal 0.3-0.8 [facility] Comment on above: Performed By: #### U AMIC ####[facility] Domukpcmeb1616 [place] [id number]ovanna Monocytes/100 leukocytes 4.7 % Normal 1.7-12.0 [facility] Comment on above: Performed By: #### U AMIC ####[facility] Yvdrusbiel[address] [place], [place] [address]ovanna Neutrophils 12.8 103/ul Critically high 1.4-6.5 [facility] Comment on above: Performed By: #### U AMIC ####[facility] Usbbnftllf9606 [place], [place] [address]Ggzpub Jovanna Neutrophils/100 WBC Auto (Bld) 87.1 % Critically high 43.0-75.0 [facility] Comment on above: Performed By: #### U AMIC ####[facility] Yrtvuzuysj[address] [place] [address]Oxszph Jovanna Platelet mean volume (PMV) 10.0 fL Normal 9.5-13.5 [facility] Comment on above: Performed By: #### U AMIC ####[facility] Trmzcjlfbr[address] [place] [address]Yjzmvx Jovanna Platelets 171 103/ul Normal 150-450 [facility] Comment on above: Performed By: #### U AMIC ####[facility] Xglnqexbnc[address] [place], [place] [address]ovanna WBC (Leukocytes) 14.7 103/ul Critically high 4.0-11.0 [facility] Comment on above: Performed By: #### U AMIC ####[facility] Qatvylsjrk[address] [place] [address]Douvqf Jovanna CBC AUTO DIFFon 07-22-2017 Basophils Auto #/vol (Bld) 0.0 103/ul Normal 0.0-0.1 [facility] Comment on above: Performed By: #### U AMIC ####[facility] Ekmailcdpg[address] [place] [address]Ewkrev Jovanna Basophils/100 WBC Auto (Bld) 0.2 % Normal 0.2-2.0 [facility] Comment on above: Performed By: #### U AMIC ####[facility] Qvjtnfulzq[address] [place] [address]Qsispk Jovanna Eosinophils 0.1 103/ul Normal 0.0-0.7 [facility] Comment on above: Performed By: #### U AMIC ####[facility] Tiwaqqxbxq[address] [place] [address]Wyevtz Jovanna Eosinophils/100 leukocytes 0.4 % Critically low 0.9-7.0 [facility] Comment on above: Performed By: #### U AMIC ####[facility] Irhlysgycs6401 [place] [phone]ovanna Erythrocyte distribution width Auto Ratio (RBC) 14.5 % Normal 11.0-15.0 [facility] Comment on above: Performed By: #### U AMIC ####[facility] Z[address]dctrq[address] [place] [address] Jovanna Erythrocytes (RBC) 3.83 106/ul Critically low 4.20-5.40 [facility] Comment on above: Performed By: #### U AMIC ####[facility] Ivbpecpdyp7[address] [place], [place] [address] Jovanna Hematocrit (HCT) 33.0 % Critically low 36.0-48.0 [facility] Comment on above: Performed By: #### U AMIC ####[facility] Egxrytsmez[address] [place] [address] Jovanna Hemoglobin mass conc (Bld) 11.0 g/dL Critically low 12.0-16.0 [facility] Comment on above: Performed By: #### U AMIC ####[facility] Nowqnegtdo12[address] [place], [place] [address] Jovanna IG # 0.06 10e3/ul Critically high 0.00-0.03 [facility] Comment on above: Performed By: #### U AMIC ####[facility] Nhmzxfhdrh[address] [place], [place] [address] Jovanna IG % 0.4 % Normal 0.0-0.5 [facility] Comment on above: Performed By: #### U AMIC ####[facility] Yickvuuefg5354 [place] [id number] Jovanna Lymphocytes 1.1 103/ul Critically low 1.2-3.8 [facility] Comment on above: Performed By: #### U AMIC ####[facility] Kbiutwocdi4[address] [place], [place] [address]ovanna Lymphocytes/100 leukocytes 7.0 % Critically low 20.5-60.0 [facility] Comment on above: Performed By: #### U AMIC ####[facility] Gmflnlodob9447 [place] [id number] Jovanna MANUAL DIFF REQ NO Normal [facility] Comment on above: Performed By: #### U AMIC ####[facility] Pjodijbbwn2691 [place] [id number] Jovanna MCH 28.7 pg Normal 26.7-34.0 [facility] Comment on above: Performed By: #### U AMIC ####[facility] Vsxsklhofh8921 [place] [id number] Jovanna MCHC mass conc (RBC) 33.3 g/dL Normal 29.9-35.2 [facility] Comment on above: Performed By: #### U AMIC ####[facility] Anpfyddufr4435 [place] [id number] Jovanna MCV 86.2 fL Normal 81.0-99.0 [facility] Comment on above: Performed By: #### U AMIC ####[facility] Ybzpctfzgm5909 [place], [place] [address]Lmvwqi Jovanna Monocytes 0.8 103/ul Normal 0.3-0.8 [facility] Comment on above: Performed By: #### U AMIC ####[facility] Jhrwmkpknn0586 [place] [id number] Jovanna Monocytes/100 leukocytes 4.9 % Normal 1.7-12.0 [facility] Comment on above: Performed By: #### U AMIC ####[facility] Imppzyvyzt3131 [place], [place] [address]Rxruql Jovanna Neutrophils 14.0 103/ul Critically high 1.4-6.5 [facility] Comment on above: Performed By: #### U AMIC ####[facility] Knxoxonaoi4240 [place], [place] [address]Sxgizp Jovanna Neutrophils/100 WBC Auto (Bld) 87.1 % Critically high 43.0-75.0 [facility] Comment on above: Performed By: #### U AMIC ####[facility] Vyjzrnhbqu1239 [place] [id number] Jovanna Platelet mean volume (PMV) 11.5 fL Normal 9.5-13.5 [facility] Comment on above: Performed By: #### U AMIC ####[facility] Wkknoycdvz6523 [place] [id number] Jovanna Platelets 204 103/ul Normal 150-450 [facility] Comment on above: Performed By: #### U AMIC ####[facility] Kpccndeozv7652 [address] Jovanna WBC (Leukocytes) 16.0 103/ul Critically high 4.0-11.0 [facility] Comment on above: Performed By: #### U AMIC ####[facility] Jcfcagmghe9984 [address] Jovanna DRUG SCREEN RAPID (URINE)on 07-22-2017 AMP Negative Normal NEGATIVE [facility] Comment on above: Performed By: #### U AMIC ####[facility] Cmklnbmzft1116 [address] Jovanna BAR Negative Normal NEGATIVE [facility] Comment on above: Performed By: #### U AMIC ####[facility] Lkziobeywa2499 [address] J[place]anna BUP Negative Normal NEGATIVE [facility] Comment on above: Performed By: #### U AMIC ####[facility] Lbbecfomxj5715 [address] [place] BZO Negative Normal NEGATIVE [facility] Comment on above: Performed By: #### U AMIC ####[facility] Ojkspuqndd4829 [address] J[place]anna KENNETH Negative Normal NEGATIVE [facility] Comment on above: Performed By: #### U AMIC ####[facility] Ldohufgxzh8830 [address] Jovanna CUT-OFFS SEE BELOW Normal [facility] Comment on above: Result Comment: AMP (Amphetamine): [...] 300 ng/mL Performed By: #### U AMIC ####[facility] [address] [place] [address] DRUG CUT HEADER DRUG CLASS TEST SYSTEM CUT-OFF CONCENTRATIONS ARE FOLLOWS: Normal [facility] Comment on above: Performed By: #### U AMIC ####[facility] G[address]jbwnbje[address] [place] [address] mAMP Negative Normal NEGATIVE [facility] Comment on above: Performed By: #### U AMIC ####[facility] Zozzwgiksm[address] [place] [address] MTD Negative Normal NEGATIVE [facility] Comment on above: Performed By: #### U AMIC ####[facility] Yhfxzicqis[address] [place] [address] OPI Negative Normal NEGATIVE [facility] Comment on above: Performed By: #### U AMIC ####[facility] Meiqkb[address]rz[address] [place] [address] OXY Negative Normal NEGATIVE [facility] Comment on above: Performed By: #### U AMIC ####[facility] Jsfmmuudog[address] [place] [address] PCP Negative Normal NEGATIVE [facility] Comment on above: Performed By: #### U AMIC ####[facility] Tgesfmgbvy[address] [place] [address] PPX Negative Normal NEGATIVE [facility] Comment on above: Performed By: #### U AMIC ####[facility] Gigsdxskjs2253 [place] [id number] Jovanna TCA Negative Normal NEGATIVE [facility] Comment on above: Performed By: #### U AMIC ####[facility] Pjpnapbjjb[address] [place], [place] [address] Jovanna THC Negative Normal NEGATIVE [facility] Comment on above: Performed By: #### U AMIC ####[facility] Uaglmcvkyk[address] [place] [address] Jovanna CHLAMYDIA/GONOCOCCUS LOR W/C ONF. (SWAB/Uon 06-28-2017 Chlamydia Trach LOR Negative Normal Negative [facility] Comment on above: Performed By: #### U AMIC ####[facility] Dpjlimpanh[address] [place] [address] Jovanna N. Gonorrhoeae LOR Negative Normal Negative [facility] Comment on above: Performed By: #### U AMIC ####[facility] Wpkahmiepg[address] [place], [place] [address] Jovanna CBC AUTO DIFFon 06-27-2017 Basophils Auto #/vol (Bld) 0.0 103/ul Normal 0.0-0.1 [facility] Comment on above: Performed By: #### U AMIC ####[facility] Umjzipozzl[address] [place] [address] Jovanna Basophils/100 WBC Auto (Bld) 0.2 % Normal 0.2-2.0 [facility] Comment on above: Performed By: #### U AMIC ####[facility] Qvcgiyvnqi[address] [place], [place] [address] Jovanna Eosinophils 0.1 103/ul Normal 0.0-0.7 [facility] Comment on above: Performed By: #### U AMIC ####[facility] Hvbcjiyela[address] [place] [address] Jovanna Eosinophils/100 leukocytes 1.2 % Normal 0.9-7.0 [facility] Comment on above: Performed By: #### U AMIC ####[facility] Rlmsnqcijs[address] [place] [address] Jovanna Erythrocyte distribution width Auto Ratio (RBC) 12.9 % Normal 11.0-15.0 [facility] Comment on above: Performed By: #### U AMIC ####[facility] Asbngjnqhw[address] [place] [address] Jovanna Erythrocytes (RBC) 3.47 106/ul Critically low 4.20-5.40 [facility] Comment on above: Performed By: #### U AMIC ####[facility] Fcibiqjxgf03[address] [place] [address] Jovanna Hematocrit (HCT) 30.6 % Critically low 36.0-48.0 [facility] Comment on above: Performed By: #### U AMIC ####[facility] Szktpyeoda[address] [place] [address] Jovanna Hemoglobin mass conc (Bld) 10.1 g/dL Critically low 12.0-16.0 [facility] Comment on above: Performed By: #### U AMIC ####[facility] Ugimkhudxf[address] [place] [address] Jovanna IG # 0.03 10e3/ul Normal 0.00-0.03 [facility] Comment on above: Performed By: #### U AMIC ####[facility] [address]uxehnnsxu[address] [place] [address] Jovanna IG % 0.3 % Normal 0.0-0.5 [facility] Comment on above: Performed By: #### U AMIC ####[facility] Wncvnmiabm[address] [place] [address] Jovanna Lymphocytes 1.6 103/ul Normal 1.2-3.8 [facility] Comment on above: Performed By: #### U AMIC ####[facility] Rvvllkflob[address] [place] [address] Jovanna Lymphocytes/100 leukocytes 17.3 % Critically low 20.5-60.0 [facility] Comment on above: Performed By: #### U AMIC ####[facility] V[address]pmmeafd[address] [place] [address] Jovanna MANUAL DIFF REQ NO Normal [facility] Comment on above: Performed By: #### U AMIC ####[facility] Mftkosgglw7902 [place], [place] [address]Jyksdb Jovanna MCH 29.1 pg Normal 26.7-34.0 [facility] Comment on above: Performed By: #### U AMIC ####[facility] Atnvbhklxh6375 [place], [place] [address]Mstqgl Jovanna MCHC mass conc (RBC) 33.0 g/dL Normal 29.9-35.2 [facility] Comment on above: Performed By: #### U AMIC ####[facility] Lrtbmjyccc9270 [place] [id number] Jovanna MCV 88.2 fL Normal 81.0-99.0 [facility] Comment on above: Performed By: #### U AMIC ####[facility] Xmfiliagia1492 [place] [address] Jovanna Monocytes 0.7 103/ul Normal 0.3-0.8 [facility] Comment on above: Performed By: #### U AMIC ####[facility] Absdytbipy7648 [place] [address] Jovanna Monocytes/100 leukocytes 7.7 % Normal 1.7-12.0 [facility] Comment on above: Performed By: #### U AMIC ####[facility] Seytspjoip2523 [place] [address] Jovanna Neutrophils 6.6 103/ul Critically high 1.4-6.[address] [facility] Comment on above: Performed By: #### U AMIC ####[facility] Bdrjmykiyd8573 [place] [address] Jovanna Neutrophils/100 WBC Auto (Bld) 73.3 % Normal 43.0-75.0 [facility] Comment on above: Performed By: #### U AMIC ####[facility] Liwijmlfhg4524 [place], [place] [address]Qtylig Jovanna Platelet mean volume (PMV) 10.4 fL Normal 9.5-13.5 [facility] Comment on above: Performed By: #### U AMIC ####[facility] Hbpkpkryru0202 [place], [place] [address]Jqsguf Jovanna Platelets 235 103/ul Normal 150-450 [facility] Comment on above: Performed By: #### U AMIC ####[facility] Xxteddwvfy[address] [place] [address]Xppqkg Jovanna WBC (Leukocytes) 9.1 103/ul Normal 4.0-11.[address] [facility] Comment on above: Performed By: #### U AMIC ####[facility] Qieezagqfg[address] [place] [address]Kcnrio Jovanna GROUP B STREPTon 06-25-2017 GBS Performed by [facility] , final report to follow Normal NEG FOR GBS [facility] Comment on above: Performed By: #### U AMIC ####[facility] Tskskpfjwz[address] [place] [address]Cdtyhl Jovanna CBC AUTO DIFFon 05-16-2017 Basophils Auto #/vol (Bld) 0.0 103/ul Normal 0.0-0.1 [facility] Comment on above: Performed By: #### P REGQNT ####[facility] Izkazzsrxm[address] [place], [place] [address] [place]ovanna Basophils/100 WBC Auto (Bld) 0.2 % Normal 0.2-2.0 [facility] Comment on above: Performed By: #### P REGQNT ####[facility] Lftyhhqfcu[address] [place], [place] [address] [place]ovanna Eosinophils 0.1 103/ul Normal 0.0-0.7 [facility] Comment on above: Performed By: #### P REGQNT ####[facility] Pwerhjqrmx[address] [place], [place] [address] [place]ovanna Eosinophils/100 leukocytes 0.7 % Critically low 0.9-7.0 [facility] Comment on above: Performed By: #### P REGQNT ####[facility] Kmfpajglvs[address] [place], [place] [address] [place]ovanna Erythrocyte distribution width Auto Ratio (RBC) 12.6 % Normal 11.0-15.0 [facility] Comment on above: Performed By: #### P REGQNT ####[facility] Yscatrvizt6063 [address] Jovanna Erythrocytes (RBC) 3.42 106/ul Critically low 4.20-5.40 [facility] Comment on above: Performed By: #### P REGQNT ####[facility] Ylpkotmcmx7613 [address] Jovanna Hematocrit (HCT) 30.4 % Critically low 36.0-48.0 [facility] Comment on above: Performed By: #### P REGQNT ####[facility] Koistobwpd[address] [place] [address] Jovanna Hemoglobin mass conc (Bld) 10.3 g/dL Critically low 12.0-16.0 [facility] Comment on above: Performed By: #### P REGQNT ####[facility] [address]ttqifpe[address] [place] [address] Jovanna IG # 0.08 10e3/ul Critically high 0.00-0.03 [facility] Comment on above: Performed By: #### P REGQNT ####[facility] Cbzmfthvqe[address] [place] [address] Jovanna IG % 0.6 % Critically high 0.0-0.5 [facility] Comment on above: Performed By: #### P REGQNT ####[facility] Llftclicur[address] [place] [address] Jovanna Lymphocytes 1.2 103/ul Normal 1.2-3.8 [facility] Comment on above: Performed By: #### P REGQNT ####[facility] Xngpwlhuia[address] [place] [address] Jovanna Lymphocytes/100 leukocytes 9.3 % Critically low 20.5-60.0 [facility] Comment on above: Performed By: #### P REGQNT ####[facility] Jvisdmozbg[address] [place] [address] Jovanna MANUAL DIFF REQ NO Normal [facility] Comment on above: Performed By: #### P REGQNT ####[facility] Jbzkqijrcz7215 [place], [place] [address]Wdetkc Karen MCH 30.1 pg Normal 26.7-34.0 [facility] Comment on above: Performed By: #### P REGQNT ####[facility] Fgkcdjospn2165 [place], [place] [address]Lnvuyc Karen MCHC mass conc (RBC) 33.9 g/dL Normal 29.9-35.2 [facility] Comment on above: Performed By: #### P REGQNT ####[facility] Fpvfoamumy5643 [place] [address] Jovanna MCV 88.9 fL Normal 81.0-99.0 [facility] Comment on above: Performed By: #### P REGQNT ####[facility] Zuqilsodjd45[address] [place], [place] [address] Jovanna Monocytes 0.7 103/ul Normal 0.3-0.8 [facility] Comment on above: Performed By: #### P REGQNT ####[facility] Dhpwmcvpld[address] [place], [place] [address] Jovanna Monocytes/100 leukocytes 5.3 % Normal 1.7-12.0 [facility] Comment on above: Performed By: #### P REGQNT ####[facility] Zdqpfepthj74[address] [place], [place] [address] Jovanna Neutrophils 10.5 103/ul Critically high 1.4-6.5 [facility] Comment on above: Performed By: #### P REGQNT ####[facility] [address] [place] [address]Dokjrs Jovanna Neutrophils/100 WBC Auto (Bld) 83.9 % Critically high 43.0-75.0 [facility] Comment on above: Performed By: #### P REGQNT ####[facility] Ibwkpvrvpx[address] [place] [address]Ldgble Jovanna Platelet mean volume (PMV) 9.0 fL Critically low 9.5-13.5 [facility] Comment on above: Performed By: #### P REGQNT ####[facility] Hkgszctytb1702 [place], [place] [address]Mnqtyp Karen Platelets 233 103/ul Normal 150-450 [facility] Comment on above: Performed By: #### P REGQNT ####[facility] Jyzvnvradm8909 [place], [place] [address]Hezhpg Karen WBC (Leukocytes) 12.6 103/ul Critically high 4.0-11.0 [facility] Comment on above: Performed By: #### P REGQNT ####[facility] Nebplxiakx4439 [place], [place] [address]Mrfyts Jovanna GLUCOSE - 1HRon 05-16-2017 Glucose mass conc 112 mg/dL Critically high 74-106 Th [facility] Comment on above: Performed By: #### P REGQNT ####[facility] Rvibfbidxl5120 [place], [place] [address]PaxxttAlberto Nugent US PREG INCOMPLETE ANATOMYon 04-25-2017 US PREG INCOMPLETE ANATOMY [address] [place] [address] Patient: LINNEA CAPELLAN Exam Date: 04/25/2017DOB: 1995 Gender:F : CHAVEZ BACA . Admission #: [id number] : Order #: [id number] HERE TO VIEW EXAM RADIOLOGY REPORT PROCEDURE: [...] M.D. on 04/25/2017 at 11:42 Normal [facility] US PREG ANATOMY SINGLEon US PREG ANATOMY SINGLE [address] [place] [id number] Patient: LINNEA CAPELLAN Exam Date: 03/10/2017DOB: 1995 Gender:F : CHAVEZ NoemiIsela BACA . Admission #: [id number] : Order #: [id number] HERE TO VIEW EXAM RADIOLOGY REPORT PROCEDURE: [...] Maxwell Barbosa M.D. on 03/10/2017 at 12:18 [facility] PAP ACOG PANEL 4: 21 to 29on 03-03-2017 Age Gdln ACOG Testing - Normal [facility] Comment on above: Performed By: #### P REGQNT ####[facility] C[address]uaqhzqp[address] Chlamydia, Nuc. Acid Amp Negative Normal Negative [facility] [facility] Comment on above: Result Comment: Perf ormed at: =G Performed By: #### P REGQNT ####[facility] [address] [place], [place] [address] DIAGNOSIS: Comment Normal [facility] Comment on above: Result Comment: NEGA TIVE FOR INTRAEPITHELIAL LESION AND MALIGNANCY.Performed at: WB Performed By: #### P REGQNT ####[facility] [address] [place] [address] Jovanna Gonococcus, Nuc. Acid Amp Negative Normal Negative [facility] Comment on above: Result Comment: Perf ormed at: =G Performed By: #### P REGQNT ####[facility] [address] [place] [address] Methodology: Comment Normal [facility] Comment on above: Result Comment: This liquid based ThinPrep(R) pap test was screened with theuse of an image guided system.Performed at: WB Performed By: #### P REGQNT ####[facility] [address] [place] [address] Note: Comment Normal [facility] Comment on above: Result Comment: The Pap smear is a screening test designed to aid in the detection ofpremalignant and malignant conditions of the uterine cervix. It is not adiagnostic procedure and should not be used as the sole means of detectingcervical cancer. Both false-positive and false-negative reports do occur. .Performed at: WB Performed By: #### P REGQNT ####[facility] [address] [place] [address] Performed by: Comment Normal [facility] Comment on above: Result Comment: Florentin Collins, Spring Assembler (ASCP)Performed at: WB Performed By: #### P REGQNT ####[facility] [address] [place] [address] Reflex Criteria: Comment Normal [facility] Comment on above: Result Comment: The HPV DNA reflex criteria were not met with this specimen resulttherefore, no HPV testing was performed. .Performed at: WB Performed By: #### P REGQNT ####[facility] [address] [place] [address] Specimen adequacy: Comment Normal [facility] Comment on above: Result Comment: Sati sfactory for evaluation. Endocervical and/or squamous metaplasticcells (endocervical component) are present.Performed at: WB Performed By: #### P REGQNT ####[facility] [address] [place] [address] Trich vag by LOR Negative Normal Negative [facility] Comment on above: Result Comment: Perf ormed at: =G Performed By: #### P REGQNT ####[facility] [address] [place] [address] . . Normal [facility] Comment on above: Result Comment: Perf ormed at: WB Performed By: #### P REGQNT ####[facility] [address] [place] [address] HEP B SURFACE AGon 8 BSA (Body Surface Area) Negative Normal Negative [facility] Comment on above: Performed By: #### H EPBSUR ####[facility] [address] [place] [address] HEPATITIIS C VIRUS ANTIBODYo n 02-27-2017 Hep C Virus Ab <0.1 Normal 0.0-0.9 [facility] Comment on above: Result Comment: Nega tive: < 0.8 Indeterminate: 0.8 - 0.9 Positive: > 0.9 . The CDC recommends that a positive HCV antibody result be followed up with a HCV Nucleic Acid Amplification test (942398). Performed By: #### H CV ####[facility] [address] [place] [address] Jovanna HGB(ELECTP) FRACTION PROFILE on 02-27-2017 Hemoglobin mass conc (Bld) 3.0 % Normal 1.8-3.2 [facility] Comment on above: Result Comment: Pl ease note reference interval change Performed By: #### P REGQNT ####[facility] [address] [place] [address] Jovanna Hemoglobin mass conc (Bld) 0.0 % Normal 0.0 [facility] Comment on above: Performed By: #### P REGQNT ####[facility] [address] [place] [address] Jovanna Hemoglobin mass conc (Bld) Negative Normal Negative [facility] Comment on above: Performed By: #### P REGQNT ####[facility] [address] [place] [address] Jovanna Hemoglobin mass conc (Bld) 0.5 % Normal 0.0-2.0 [facility] Comment on above: Result Comment: Pl ease note reference interval change Performed By: #### P REGQNT ####[facility] [address] [place] [address] Jovanna Hemoglobin mass conc (Bld) 96.5 % Normal 96.4-98.8 [facility] Comment on above: Result Comment: Pl ease note reference interval change Performed By: #### P REGQNT ####[facility] [address] [place] [address] Jovanna Hemoglobin mass conc (Bld) Normal [facility] Comment on above: Performed By: #### P REGQNT ####[facility] [address] [place] [address] Jovanna Interpretation Comment Normal [facility] Comment on above: Result Comment: Norm al adult hemoglobin present. Performed By: #### P REGQNT ####[facility] [address] [place] [address] Jovanna RPR QUANTon 02-27-2017 Rapid Plasma Reagin, Quant Non Reactive Normal NonRea<1:1 [facility] Comment on above: Performed By: #### P REGQNT ####[facility] [address] [place] [address] Jovanna VARICELLA IGG ABon 8 Varicella Zoster IgG <135 Critically low Immune >165 [facility] Comment on above: Result Comment: Nega tive <135 Equivocal 135 - 165 Positive >165 A positive result generally indicates exposure to the pathogen or administration of specific immunoglobulins, but it is not indication of active infection or stage of disease. Performed By: #### P REGQNT ####[facility] [address] [place] [address] Jovanna TYPE AND SCREENon 02-26-2017 TYPE AND SCREEN Negative Normal [facility] Comment on above: Performed By: #### T NS ####[facility] [address] [place] [address] Jovanna CBC AUTO DIFFon 02-25-2017 Basophils Auto #/vol (Bld) 0.0 103/ul Normal 0.0-0.1 [facility] Comment on above: Performed By: #### C BC ####[facility] [address] [place] [address] Jovanna Basophils/100 WBC Auto (Bld) 0.3 % Normal 0.2-2.0 [facility] Comment on above: Performed By: #### C BC ####[facility] [address] [place] [address] Jovanna Eosinophils 0.1 103/ul Normal 0.0-0.7 [facility] Comment on above: Performed By: #### C BC ####[facility] [address] [place] [address] Jovanna Eosinophils/100 leukocytes 1.2 % Normal 0.9-7.0 [facility] Comment on above: Performed By: #### C BC ####[facility] Q[address] J[place]anna Erythrocyte distribution width Auto Ratio (RBC) 13.6 % Normal 11.0-15.0 [facility] Comment on above: Performed By: #### C BC ####[facility] B[address] J[place]anna Erythrocytes (RBC) 3.59 106/ul Critically low 4.20-5.40 [facility] Comment on above: Performed By: #### C BC ####[facility] [address] [place] [address] Jovanna Hematocrit (HCT) 32.3 % Critically low 36.0-48.0 [facility] Comment on above: Performed By: #### C BC ####[facility] [address] [place] [address] Jovanna Hemoglobin mass conc (Bld) 10.7 g/dL Critically low 12.0-16.0 [facility] Comment on above: Performed By: #### C BC ####[facility] [address] [place] [address] Jovanna IG # 0.11 10e3/ul Critically high 0.00-0.03 [facility] Comment on above: Performed By: #### C BC ####[facility] L[address] Jovanna IG % 1.2 % Critically high 0.0-0.5 [facility] Comment on above: Performed By: #### C BC ####[facility] Nneiq[address]my1745 [address] Nugent Lymphocytes 1.4 103/ul Normal 1.2-3.8 [facility] Comment on above: Performed By: #### C BC ####[facility] [address] [place] [address] Jovanna Lymphocytes/100 leukocytes 15.2 % Critically low 20.5-60.0 [facility] Comment on above: Performed By: #### C BC ####[facility] [address] [place] [address]ken Jovanna MANUAL DIFF REQ NO Normal [facility] Comment on above: Performed By: #### C BC ####[facility] [address] [place] [address] Jovanna MCH 29.8 pg Normal 26.7-34.0 [facility] Comment on above: Performed By: #### C BC ####[facility] [address] [place] [id number] Jovanna MCHC mass conc (RBC) 33.1 g/dL Normal 29.9-35.2 [facility] Comment on above: Performed By: #### C BC ####[facility] [address] [place] [address] Jovanna MCV 90.0 fL Normal 81.0-99.0 [facility] Comment on above: Performed By: #### C BC ####[facility] [address] [place] [address] Jovanna Monocytes 0.5 103/ul Normal 0.3-0.8 [facility] Comment on above: Performed By: #### C BC ####[facility] [address] [place] [address] Jovanna Monocytes/100 leukocytes 5.7 % Normal 1.7-12.0 [facility] Comment on above: Performed By: #### C BC ####[facility] [address] [place], [place] [address] Jovanna Neutrophils 7.2 103/ul Critically high 1.4-6.[address] [facility] Comment on above: Performed By: #### C BC ####[facility] [address] [place] [address] Jovanna Neutrophils/100 WBC Auto (Bld) 76.4 % Critically high 43.0-75.0 [facility] Comment on above: Performed By: #### C BC ####[facility] [address] [place], [place] [address]UmypklAlberto Nugent Platelet mean volume (PMV) 10.1 fL Normal 9.5-13.5 [facility] Comment on above: Performed By: #### C BC ####[facility] [address] [place] [address]Alberto Nugent Platelets 248 103/ul Normal 150-450 [facility] Comment on above: Performed By: #### C BC ####[facility] [address] [place] [address]Gerdeangelo Nugent WBC (Leukocytes) 9.5 103/ul Normal 4.0-11.[address] [facility] Comment on above: Performed By: #### C BC ####[facility] [address] [place] [address]RiehfuAlberto Nugent HIV 1 AND 2 ABon 02-25-2017 HIV 1 AND 2 AB Negative Normal NEGATIVE [facility] Comment on above: Performed By: #### P REGQNT ####[facility] [address] [place], [place] [address] Jovanna PREG QUANT HCGon 02-25-2017 HCG Qn SEE BELOW Normal [facility] Comment on above: Result Comment: 5-50 0-1 WEEK 40-300 1-2 WEEKS 100-1,000 2-3 WEEKS 500-6,000 3-4 WEEKS 5,000-200,000 1-2 MONTHS 10,000-100,000 2-3 MONTHS 3,000-50,000 2ND TRIMESTER 1,000-50,000 3RD TRIMESTER Performed By: #### P REGQNT ####[facility] [address] [place] [address]vlc Jovanna HCG QUANT 05135.00 mIU/mL Normal [facility] Comment on above: Performed By: #### P REGQNT ####[facility] [address] [place], [place] [address]Alberto Nugent RUBELLA AB IGGon 02-25-2017 RUB HEADER SEE BELOW Normal [facility] Comment on above: Result Comment: or=1 5.0 IU/mL POSITIVE WHO considers levels >or= 10.0 IU/mL to be positive immune status Performed By: #### P REGQNT ####[facility] [address] [place], [place] [address]FgztvrAlberto Nugent RUB IGG 6.8 IU/mL Normal [facility] Comment on above: Performed By: #### P REGQNT ####[facility] [address] [place], [place] [address]UagheaAlberto Nugent US PREG DATING >14WEEKSon US PREG DATING >14WEEKS [address] [place] [address] Patient: LINNEA CAPELLAN Exam Date: 02/19/2017DOB: 1995 Gender:F : CHAVEZ BACA . Admission #: [id number] : Order #: [id number] HERE TO VIEW EXAM RADIOLOGY REPORT PROCEDURE: [...] M.D. on 02/19/2017 at 09:51 Normal [facility] CULTURE URINEon 02-14-2017 CULTURE URINE Culture Observations : final, scanned results to follow in hpf Normal [facility] Comment on above: Performed By: #### C XUR ####[facility] I[address]csq[address] Jovanna UA RANDOM W/MICROSCOPICon AMORPHOUS CRYSTALS FEW Normal [facility] Comment on above: Performed By: #### U AMIC ####[facility] Oug[address]oz[address] J[place]anna Bilirubin (total) Negative Normal NEGATIVE [facility] Comment on above: Performed By: #### U AMIC ####[facility] N[address]cl[address] [place] BLOOD Negative Normal NEGATIVE [facility] Comment on above: Performed By: #### U AMIC ####[facility] K[address]vcf[address]16 [address] [place]anna CAST NONE SEEN Normal NONE SEEN [facility] Comment on above: Performed By: #### U AMIC ####[facility] Ux[address]eyom[address] [place] Erythrocytes (RBC) 0-2 Normal 0-2 [facility] Comment on above: Performed By: #### U AMIC ####[facility] I[address]qphx[address] J[place] Glucose mass conc Negative Normal NEGATIVE [facility] Comment on above: Performed By: #### U AMIC ####[facility] Y[address] [place] MUCOUS SMALL Normal NONE SEEN [facility] Comment on above: Performed By: #### U AMIC ####[facility] [address] [place], [place] [address]Oqesvp Jovanna pH of blood 7.5 [pH] Normal 5-9 [facility] Comment on above: Performed By: #### U AMIC ####[facility] F[address]bioth35[address] [place], [place] [address]g Jovanna Protein Negative Normal [facility] Comment on above: Performed By: #### U AMIC ####[facility] [address] [place] [address] Jovanna SPEC GRAVITY 1.020 Normal 1.005-<=1.025 [facility] Comment on above: Performed By: #### U AMIC ####[facility] Nilgftsqmg[address]64 [address] J[place]anna Urine, bacteria in sediment TRACE Normal NONE SEEN [facility] Comment on above: Performed By: #### U AMIC ####[facility] [address] [place] [id number] Jovanna Urine, clarity SL CLOUDY Normal [facility] Comment on above: Performed By: #### U AMIC ####[facility] [address] [place] [id number] Jovanna Urine, color LT. YELLOW Normal YELLOW [facility] Comment on above: Performed By: #### U AMIC ####[facility] [address] [place] [id number] Jovanna Urine, crystals in sediment SEEN Normal NONE SEEN [facility] Comment on above: Performed By: #### U AMIC ####[facility] [address]fa[address] [place], [place] [address]Epfwvk Jovanna Urine, epithelial cells in sediment FEW Normal [facility] Comment on above: Performed By: #### U AMIC ####[facility] [address] [place] [id number] Jovanna Urine, ketones presence Negative Normal NEGATIVE [facility] Comment on above: Performed By: #### U AMIC ####[facility] [address] [place], [place] [address]BzosrsAlberto Nugent Urine, nitrite presence Negative Normal NEGATIVE [facility] Comment on above: Performed By: #### U AMIC ####[facility] Abpxvmsuhe[address] [place], [place] [address]UkvzsfAlberto Nugent Urine, urobilinogen 0.2 {Rony'U}/dL Normal [facility] Comment on above: Performed By: #### U AMIC ####[facility] [address]cmof2406 [place], [place] [address]Zdjsjy Karen WBC (Leukocytes) 0-2 Normal NONE SEEN The [facility] Comment on above: Performed By: #### U AMIC ####[facility] Eqsjgcattv37[address] [place] [address]Alberto Nugent WBC (Leukocytes) Negative Normal NEGATIVE The [facility] Comment on above: Performed By: #### U AMIC ####[facility] [address] [place], [place] [address]BbixymAlberto Nugent ABO AND RH TYPEon 02-06-2017 ABO AND RH TYPE Positive Normal [facility] Comment on above: Performed By: #### A BORLorna ####[facility] [address] [place], [place] [address]QxnfhxAlberto Nugent PREG QUANT HCGon 02-06-2017 HCG Qn SEE BELOW Normal [facility] Comment on above: Result Comment: 5-50 0-1 WEEK 40-300 1-2 WEEKS 100-1,000 2-3 WEEKS 500-6,000 3-4 WEEKS 5,000-200,000 1-2 MONTHS 10,000-100,000 2-3 MONTHS 3,000-50,000 2ND TRIMESTER 1,000-50,000 3RD TRIMESTER Performed By: #### P REGQNT ####[facility] Cx[address]cerfbf[address]86 [place], [place] [address]TcnbyeAlberto Nugent HCG QUANT 47443.00 mIU/mL Normal [facility] Comment on above: Performed By: #### P REGQNT ####[facility] [address]op[address] [place], [place] [address]IcefyjAlberto Nugent Encounters Encounter Date Encounter Type Care [...] 09-15-2021 End: 09-15-2021 ambulatory Oly Marie Other [facility] Other Start: 09-15-2021 Nursing evaluation o f patient and report Oly Marie [facility] Start: 07-28-2017 [...] [employer] Payers Date Payer Category Payer Unknown [id number] 2022 Unknown [id number] 1995 Unknown [id number] 2.16.84 [id number] 1995 Unknown [id number] 2.16.84 [id number] 1993 Unknown [id number] 2.16.84 [id number] 1993 Unknown [id number] 2.16.84 [id number] 1993 Unknown [id number] 2.16.84 [id number] 1993 Unknown [id number] 2.16.840 .[id number] 1993 Unknown [id number] 2.16.840 .[id number] 1993 Unknown [id number] 2.16.840 .[id number] 1993 Unknown [id number] 2.16.840 .[id number] 1961 Private Health Insurance [id number] Social History Date Type Detail Facility Sex Assigned At [facility] Other Evaluation note 09-15-2021 Note Date & Type Note Facility 09-15-2021 Evaluation note Encounter Date Diagnosis Assessment Notes Sep, Cough, unspecified type (ICD-10 - R05.9) [facility] Other Summary Purpose Family History No Family History Records FoundNo Family History Records Found Advance Directives No Advanced Directives Records FoundNo Advanced Directives Records Found Additional Source Comments INFORMATION SOURCE (unrecogn ized section and content) DATE CREATED AUTHOR 08/11/2017 [facility] DATE CREATED AUTHOR AUTHOR'S ORGANIZ ATION 05/12/2023 [facility] EPIC FOR RECORDS PERTAINING TO [...] BE BASED ON THE PRIMARY CLINICAL RECORDS. [facility] [employer] [facility]. provides no warranty or guarantee of the accuracy or completeness of information in this document.
[2023-06-06 07:06] LABS: Basophils Percent Auto 0.6 % (0.2-2.0); Eosinophils Absolute Auto 0.2 10^3/uL (0.0-0.7); Eosinophils Percent Auto 3.2 % (0.9-7.0); Hematocrit 38.2 % (36.0-48.0); Hemoglobin 12.3 g/dL (12.0-16.0); Lymphocytes Percent Auto 38.2 % (20.5-60.0); Mean Corpuscular HGB Conc 32.2 g/dL (29.9-35.2); Mean Corpuscular Hemoglobin 28.1 pg (26.7-34.0); Mean Corpuscular Volume 87.4 fL (81.0-99.0); Mean Platelet Volume 9.8 fL (9.5-13.5); Monocytes Absolute Auto 0.4 10^3/uL (0.3-0.8); Monocytes Percent Auto 7.6 % (1.7-12.0); Neutrophils Absolute Auto 2.7 10^3/uL (1.4-6.5); Neutrophils Percent Auto 50.4 % (43.0-75.0); Platelet Count 224 10^3/uL (150-450); Red Blood Count 4.37 10^6/uL (4.20-5.40); Red Cell Distribution Width 13.3 % (11.0-15.0); White Blood Count 5.3 10^3/uL (4.0-11.0)
[2023-06-06 07:27] LABS: HCG Quantitative <1 mIU/mL
[2023-06-06] MEDS: LACTATED RINGER'S SOLUTION 1,000 ML 50 ML IV (07:27)
--- NOTE | 2023-06-06 09:24 | PM.ONB ---
Brief Operative Note Date of procedure: 06/06/23 Pre-op diagnosis general: desires permanent sterilization, multiparity Post-op diagnosis: same as pre-op Procedure: NAME OF PROCEDURE: robotic assisted bilateral laparoscopic salpingectomy PROCEDURE: The patient was taken back to the Operating Room where she was given general anesthesia without difficulty. She was then prepped and draped in the normal sterile fashion after being placed in a dorsal lithotomy position. A wet sponge stick was placed into the patient's vagina. Attention was then turned to the patient's abdomen, where a scalpel was used to make a small infraumbilical incision. The S retractors were then used to dissect the underlying layers until the fascia could be seen. The fascia was then grasped with Alvarez clamps and tented up. A knife was then used to make a small incision to the fascia. The muscle was identified, at that time two sutures of #0 Vicryl on a GI needle was then used and placed through the fascia. the peritoneum was then identified and entered bluntly. The 10-4 Tg was then placed into the patient's abdomen. This was confirmed with direct visualization of the bowel, using the laparoscope. The patient's abdomen was then insufflated using approximately 4 liters of CO2 gas. Survey of the patient's abdomen demonstrated ovaries were normal in appearance as well as both tubes and uterus. A second and third rt and lt lateral robotic ports which were 8 mm in size, was then placed after the skin incision was made under direct visualization . the robotic arms were engaged. The patient's tube on the patient's right side was identified and tented up using a grasper, the ligasure apparatus was then used to come across the mesosalpingx from the fimbriated end to the insertion site at the uterus, the tube was then amputated and removed in its entirety. This was done on the contralateral side. The tubes were the removed from the patients abdomen. Excellent hemostasis was noted. The lateral ports were then moved under direct visualization with excellent hemostasis. All instruments were removed from the patient's abdomen. The fascia was closed using the #0 Vicryl on GI needle. The skin was closed using 4-0 Vicryl subcuticularly. All instruments were removed from the patient's vagina as well. The patient was taken out of the dorsal lithotomy position and placed in the supine position and taken to recovery in stable condition. Sponge, lap and needle counts were correct x2. Anesthesia: BENA Surgeon: Clive Lugo [employer] Converter: Nini Arora Estimated blood loss (mL): 5 Pathology: other (tubes) Condition: stable Disposition: PACU Urinary Catheter Management Urinary Catheter Management Urethral: Cath placed during this visit: no
[2023-06-06] MEDS: LACTATED RINGER'S SOLUTION 1,000 ML 150 ML IV (10:52)
--- NOTE | 2023-06-06 10:56 | PC.NURSE ---
Denies urge to void; peripad dry
== END 2023-06-06 11:30 | disposition home or self-care (01) ==
PROVIDERS: Visit Provider Obstetrics & Gynecology
PROC: (CPT 00840; principal; 2023-06-06 08:05)
DX: Z30.2 Encounter for sterilization (principal); F17.210 Nicotine dependence, cigarettes, uncomplicated
CPT/HCPCS: 00840; 58661; 36415; 84702; 85025; 88304; J1094; J1170; J2704